=== PATIENT | female | born 1950 | race African-American/Black ===

== ENCOUNTER 2017-09-01 16:08 | Emergency (ER) | payer MEDICARE ==
[~2017-09-01] VITALS: Ht 160 cm; Wt 95.3 kg
[~2017-09-01 16:08] MED LIST: AMLO10TA2 PO; ASPI81TA50 PO; DOCU-150 PO; DONE5TAB7 PO; ENOX80DI3 SQ; HYDR-2762 PO; HYDR-971 PO; LEVO150T5 PO; LOSA100T6 PO; METH4TAB2 PO; METO-239 PO; OMEP20CA9 PO; SIMV20TA3 PO; SULF5DRO4 OP; WARF2.5T71 PO; WARF5TAB7 PO
[2017-09-01 16:20] VITALS: BP 192/88
[2017-09-01] MEDS ORDERED: PRED20TA PO (17:31)
[2017-09-01] MEDS ORDERED: CYCL10TA2 PO (17:31)
--- NOTE | 2017-09-01 17:31 | PHYS DOC ---
Past Medical History Past Medical History: Dementia, DVT, GERD, High Cholesterol, Hypertension, Hypothyroid Past Surgical History: Tubal ligation Alcohol Use: Rarely Drug Use: None Adult General Chief Complaint Chief Complaint: Neck Pain HPI HPI Patient is a 67 year old E male presents to the emergency department with a four-day history of left lateral neck pain. Patient reports she slept on her pillow funny. She states that she is used muscle rubs and massage without relief of discomfort. She states that prior to arrival she took 5 mg of hydrocodone. Patient reports no fever, no nausea, no vomiting, no visual disturbance. She reports no headache. Review of Systems Review of Systems Constitutional: Denies fever or chills [] Eyes: Denies change in visual acuity, redness, or eye pain [] HENT: Denies nasal congestion or sore throat, complains of left lateral neck pain [] Respiratory: Denies cough or shortness of breath [] Cardiovascular: No additional information not addressed in HPI [] GI: Denies abdominal pain, nausea, vomiting, bloody stools or diarrhea [] : Denies dysuria or hematuria [] Musculoskeletal: Denies back pain or joint pain [] Integument: Denies rash or skin lesions [] Neurologic: Denies headache, focal weakness or sensory changes [] Endocrine: Denies polyuria or polydipsia [] All other systems were reviewed and found to be within normal limits, except as documented in this note. Allergies Allergies Allergies Coded Allergies Type Severity Reaction Last Updated Verified tolbutamide Allergy Intermediate 08/01/16 Yes Physical Exam Physical Exam Constitutional: Well developed, well nourished, no acute distress, non-toxic appearance. [] HENT: Normocephalic, atraumatic, bilateral external ears normal, oropharynx moist, no oral exudates, nose normal. [] Eyes: PERRLA, EOMI, conjunctiva normal, no discharge. [] Neck: Normal range of motion, mild tenderness in the left paraspinous muscles and the left trapezius muscle., supple, no meningeal signs and no lymphadenopathy, no stridor. [] Cardiovascular:Heart rate regular rhythm, no murmur [] Lungs & Thorax: Bilateral breath sounds clear to auscultation [] Skin: Warm, dry, no erythema, no rash. [] Back: No tenderness, no CVA tenderness. [] Extremities: No tenderness, no cyanosis, no clubbing, ROM intact, no edema. [] Neurologic: Alert and oriented X 3, normal motor function, normal sensory function, no focal deficits noted. [] Psychologic: Affect normal, judgement normal, mood normal. [] EKG EKG [] Radiology/Procedures Radiology/Procedures [] Course & Med Decision Making Course & Med Decision Making Pertinent Labs and Imaging studies reviewed. (See chart for details) [] Dragon Disclaimer Dragon Disclaimer This electronic medical record was generated, in whole or in part, using a voice recognition dictation system. Departure Departure Impression: Primary Impression: Cervical muscle strain Disposition: HOME, SELF-CARE Condition: STABLE Referrals: ROBERT QUINTANILLA MD (PCP) Patient Instructions: Cervical Sprain Additional Instructions: Moist heat to affected area. Continue hydrocodone as previously directed and is indicated for pain. Scripts Prednisone (PREDNISONE) 20 Mg Tablet 1 TAB PO DAILY, #5 TAB Prov: ALIA GAYLE APRN 09/01/17 Cyclobenzaprine Hcl (CYCLOBENZAPRINE HCL) 10 Mg Tablet 10 MG PO TID, #30 TAB Prov: ALIA GAYLE APRN 09/01/17 Problem Qualifiers Primary Impression: Cervical muscle strain Encounter type: initial encounter Qualified Codes: S16.1XXA - Strain of muscle, fascia and tendon at neck level, initial encounter ALIA GAYLE APRN Sep 01, 2017 17:31
== END 2017-09-01 17:53 | disposition home or self-care (01) ==
LOC: ER 16:08
DX: S16.1XXA Strain of muscle, fascia and tendon at neck level, initial encounter (principal); F03.90 Unspecified dementia, unspecified severity, without behavioral disturbance, psychotic disturbance, mood disturbance, and anxiety; K21.9 Gastro-esophageal reflux disease without esophagitis; E78.00 Pure hypercholesterolemia, unspecified; I10 Essential (primary) hypertension; E03.9 Hypothyroidism, unspecified; Z86.718 Personal history of other venous thrombosis and embolism; Z88.8 Allergy status to other drugs, medicaments and biological substances; X58.XXXA Exposure to other specified factors, initial encounter; Y93.89 Activity, other specified; Y92.89 Other specified places as the place of occurrence of the external cause; Y99.8 Other external cause status
CPT/HCPCS: 99283

== ENCOUNTER 2018-01-15 19:02 | Emergency (ER) | payer MEDICARE ==
[2018-01-15] MEDS: predniSONE 10 MG TABLET PO (20:30)
[2018-01-15] MEDS: HYDROcodone/APAP 5/325MG 1 TAB TABLET PO (20:31)
== END 2018-01-15 21:04 | disposition home or self-care (01) ==
LOC: ER 19:02
DX: M54.16 Radiculopathy, lumbar region (principal); G58.9 Mononeuropathy, unspecified; E03.9 Hypothyroidism, unspecified; F03.90 Unspecified dementia, unspecified severity, without behavioral disturbance, psychotic disturbance, mood disturbance, and anxiety; E78.00 Pure hypercholesterolemia, unspecified; I10 Essential (primary) hypertension; K21.9 Gastro-esophageal reflux disease without esophagitis; G89.29 Other chronic pain; I25.2 Old myocardial infarction; Z98.51 Tubal ligation status; Z86.718 Personal history of other venous thrombosis and embolism; Z79.01 Long term (current) use of anticoagulants; Z88.8 Allergy status to other drugs, medicaments and biological substances
CPT/HCPCS: 99283; J7512

== ENCOUNTER → 2018-10-12 | Outpatient (CLI) | payer MEDICARE ==
[2018-01-15 19:29] VITALS: BP 206/91
[~2018-10-12] MED LIST changes: -AMLO10TA2 PO; +AMLO10TA6 PO; +CYCL10TA2 PO; -HYDR-2762 PO; +HYDR-2765 PO; +HYDR-3164 PO; -HYDR-971 PO; +LOSA100T14 PO; -LOSA100T6 PO; +PRED20TA PO; +WARF-31 PO; -WARF5TAB7 PO
--- NOTE | 2018-10-12 13:22 | RAD ---
DATE: 10/12/2018 EXAM: MAMMO PELON SCREENING BILATERAL HISTORY: Routine screening COMPARISON: 07/23/2015 This study was interpreted with the benefit of Computerized Aided Detection (CAD). Breast Density: HETERO The breast parenchyma is heterogenously dense, which could reduce sensitivity of mammography. Breast parenchyma level C. FINDINGS: 2-D and 3-D tomosynthesis imaging was performed in CC and MLO projections. No new or enlarging breast densities are seen. Benign type calcifications appear stable. No suspicious microcalcifications have developed. IMPRESSION: Stable mammograms without evidence of malignancy. BI-RADS CATEGORY: 2 BENIGN FINDING(S) RECOMMENDED FOLLOW-UP: 12M 12 MONTH FOLLOW-UP PQRS compliance statement: Patient information was entered into a reminder system with a target due date for the next mammogram. Mammography is a sensitive method for finding small breast cancers, but it does not detect them all and is not a substitute for careful clinical examination. A negative mammogram does not negate a clinically suspicious finding and should not result in delay in biopsying a clinically suspicious abnormality. "Our facility is accredited by the [employer] Mammography Program."
== END | disposition home or self-care (01) ==
LOC: MAMMO 12:12
PROVIDERS: ATTEND Nurse Practitioner
DX: Z12.31 Encounter for screening mammogram for malignant neoplasm of breast (principal)
CPT/HCPCS: 77063; 77067

== ENCOUNTER 2019-03-29 14:30 | Inpatient (IN) | payer MEDICARE ==
[~2019-03-29] VITALS: Ht 152.4 cm; Wt 93.0 kg
[2019-03-29] VITALS (11 sets, daily range): BP systolic 107–150; BP diastolic 56–72
[~2019-03-29 14:30] MED LIST changes: -AMLO10TA6 PO; +AMLO10TA8 PO; +OMEP20CA10 PO; -OMEP20CA9 PO
[2019-03-29] MEDS ORDERED: PROPOFOL 50 ML IV ONE (14:45)
[2019-03-29] MEDS ORDERED: HEPARIN for IV BOLUS 10,000 UNIT/10 ML VIAL. ONE ×2 (14:45→16:05)
[2019-03-29] MEDS ORDERED: ACETAMINOPHEN 650 MG SUPP.RECT. PR ONE (15:00)
[2019-03-29] MEDS: IV NORMAL SALINE 1000ML BAG 1,000 ML IV SCH ×2 (15:00→15:33)
[2019-03-29] MEDS: PROPOFOL 100 ML IV PRN ×3 (15:00→20:59)
[2019-03-29 15:05] LABS: BASO # 0.1 x10^3/uL (0.0-0.2); BASO % 1 % (0-3); EOS # 0.1 x10^3/uL (0.0-0.7); EOS % 1 % (0-3); HEMATOCRIT 42.2 % (36.0-47.0); HEMOGLOBIN 14.1 g/dL (12.0-15.5); LYMPH # 4.3 x10^3/uL (1.0-4.8); LYMPH % 61 % (24-48); MEAN CORPUSCULAR HEMOGLOBIN 30 pg (25-35); MEAN CORPUSCULAR HGB CONC 33 g/dL (31-37); MEAN CORPUSCULAR VOLUME 88 fL (79-100); MONO # 0.7 x10^3/uL (0.0-1.1); MONO % 10 % (0-9); NEUT # 1.9 x10^3uL (1.8-7.7); NEUT % 27 % (31-73); PLATELET COUNT 248 x10^3/uL (140-400); RED BLOOD COUNT 4.78 x10^6/uL (3.50-5.40); RED CELL DISTRIBUTION WIDTH 14.1 % (11.5-14.5); WHITE BLOOD COUNT 7.1 x10^3/uL (4.0-11.0)
[2019-03-29 15:07] LABS: BILIRUBIN,URINE NEGATIVE (NEG); CLARITY,URINE CLOUDY; COLOR,URINE YELLOW; NITRITE,URINE NEGATIVE (NEG); PROTEIN,URINE NEGATIVE (NEG-TRACE)
--- NOTE | 2019-03-29 15:13 | RAD ---
EXAM: CHEST 1 VIEW History: Intubation COMPARISON: 11/25/2011 TECHNIQUE: Single portable radiograph of the chest FINDINGS: Low lung volumes and technique accentuates heart size and pulmonary vascularity. The ET tube is identified in the trachea just above the level of the elayne. The feeding tube is seen below the diaphragm likely within the stomach. Mild bibasilar lung airspace opacities. IMPRESSION: IMPRESSION: 1. ET tube, feeding tube in place. 2. Mild bibasilar lung airspace opacities likely atelectasis or infiltrates. Electronically signed by: Compa Santiago MD (03/29/2019 3:10 PM) [facility]
[2019-03-29 15:15] LABS: CREATININE ISTAT 1.5 mg/dL (0.5-1.4); HEMOGLOBIN ISTAT 14.3 g/dL (12-15); ION CA ISTAT 1.47 mmol/L (1.13-1.32); POTASSIUM ISTAT 3.9 mmol/L (3.5-5.0)
[2019-03-29 15:16] LABS: BACTERIA,URINE FEW /HPF (0-FEW); RBC,URINE 0 /HPF (0-2)
[2019-03-29 15:16] LABS: PROTHROMBIN TIME PATIENT 20.1 SEC (11.7-14.0)
[2019-03-29 15:17] LABS: WBC,URINE OCC /HPF (0-4)
--- NOTE | 2019-03-29 15:18 | PHYS DOC ---
Past Medical History Past Medical History: CVA, Dementia, DVT, GERD, High Cholesterol, Hypertension, Hypothyroid, DC Additional Past Medical Histor: CHRONIC BACK PAIN Past Surgical History: Tubal ligation Alcohol Use: Rarely Drug Use: None Adult General Chief Complaint Chief Complaint: ALTERED MENTAL STATUS HPI HPI 68-year-old female with multiple medical problems presents via EMS as a code STEMI. Patient was found down in a steam room at the [facility]. Since her how long she was in the steam room. When the workers found her they said she was unresponsive and called EMS. EMS reports that she was warm and diaphoretic and they noted that her EKG was consistent with an ST elevation DC. According to family, she was in her usual state of health this morning. She had not complained of any fever chills or sweats. No headache or neck pain. As far as anyone knows, she had been eating and drinking normally leading up to this event.[] Review of Systems Review of Systems Review of systems is unobtainable secondary to altered mental status. Current Medications Current Medications Current Medications Medications (Trade) Dose Ordered Sig/Woodrow Start Time Stop Time Status Last Admin Dose Admin Acetaminophen (Tylenol Supp) 650 mg 1X ONCE 03/29/19 15:00 03/29/19 15:01 DC Etomidate (Amidate) 20 mg STK-MED ONCE 03/29/19 16:08 03/29/19 16:09 DC Heparin Sodium (Porcine) (Heparin Sodium) 2,500 unit 1X ONCE 03/29/19 16:15 03/29/19 16:16 UNV Heparin Sodium/ Sodium Chloride (HEPARIN for ARTERIAL LINE FLUSH) 1,000 unit 1X ONCE 03/29/19 16:15 03/29/19 16:16 UNV Iodixanol (Visipaque 320) 100 ml 1X ONCE 03/29/19 16:15 03/29/19 16:16 UNV Lidocaine HCl (Lidocaine 1% 20ml Vial) 20 ml 1X ONCE 03/29/19 16:15 03/29/19 16:16 UNV Nitroglycerin (Nitroglycerin) 200 mcg 1X ONCE 03/29/19 16:15 03/29/19 16:16 UNV Piperacillin Sod/ Tazobactam Sod 4.5 gm/Sodium Chloride 100 ml @ 200 mls/hr 1X ONCE 03/29/19 15:30 03/29/19 15:59 DC 6/26/19 15:05 200 MLS/HR Propofol 100 ml @ 0 mls/hr CONT PRN 03/29/19 15:00 03/29/19 15:00 2.9 MLS/HR Sodium Chloride 1,000 ml @ 1,860 mls/hr Q33M 03/29/19 15:00 03/29/19 16:00 DC 03/29/19 15:00 1,860 MLS/HR Succinylcholine Chloride (Anectine) 200 mg STK-MED ONCE 03/29/19 16:08 03/29/19 16:09 DC Verapamil HCl (Verapamil) 2.5 mg 1X ONCE 03/29/19 16:15 03/29/19 16:16 UNV Allergies Allergies Allergies Coded Allergies Type Severity Reaction Last Updated Verified tolbutamide Allergy Intermediate 08/01/16 Yes Physical Exam Physical Exam Constitutional: Diaphoretic, extreme respiratory distress acutely ill. [] HENT: Mucous membranes are moist secretions noted, no evidence of head trauma. [] Eyes: Conjunctiva injected pupils 1-2 mm. [] Neck: No obvious meningeal signs. [] Cardiovascular: Tachycardic no obvious murmur[] Lungs & Thorax: Coarse rales throughout both lungs no wheezes[] Abdomen: Bowel sounds normal, soft, no tenderness, no masses, no pulsatile masses. [] Skin: Warm, diaphoretic. [] Back: No obvious deformity noted. [] Extremities: No tenderness, no cyanosis, no clubbing, ROM intact, no edema. [] Neurologic: Patient is obtunded and in severe respiratory distress appears that she is moving all 4 extremities. [] Psychologic: Unable to assess[] Current Patient Data Vital Signs Vital Signs Date Time Temp Pulse Resp B/P (MAP) Pulse Ox O2 Delivery O2 Flow Rate FiO2 03/29/19 15:40 106 20 98 03/29/19 15:00 101.3 101.3 03/29/19 14:50 Ventilator 03/29/19 14:30 112/82 (92) 15.0 Lab Values Laboratory Tests Test 03/29/19 14:36 03/29/19 14:45 03/29/19 15:09 03/29/19 15:10 White Blood Count 7.1 x10^3/uL (4.0-11.0) Red Blood Count 4.78 x10^6/uL (3.50-5.40) Hemoglobin 14.1 g/dL (12.0-15.5) Hematocrit 42.2 % (36.0-47.0) Mean Corpuscular Volume 88 fL (79-100) Mean Corpuscular Hemoglobin 30 pg (25-35) Mean Corpuscular Hemoglobin Concent 33 g/dL (31-37) Red Cell Distribution Width 14.1 % (11.5-14.5) Platelet Count 248 x10^3/uL (140-400) Neutrophils (%) (Auto) 27 % (31-73) L Lymphocytes (%) (Auto) 61 % (24-48) H Monocytes (%) (Auto) 10 % (0-9) H Eosinophils (%) (Auto) 1 % (0-3) Basophils (%) (Auto) 1 % (0-3) Neutrophils # (Auto) 1.9 x10^3uL (1.8-7.7) Lymphocytes # (Auto) 4.3 x10^3/uL (1.0-4.8) Monocytes # (Auto) 0.7 x10^3/uL (0.0-1.1) Eosinophils # (Auto) 0.1 x10^3/uL (0.0-0.7) Basophils # (Auto) 0.1 x10^3/uL (0.0-0.2) Prothrombin Time 20.1 SEC (11.7-14.0) H Prothrombin Time INR 1.7 (0.8-1.1) H PTT 29 SEC (24-38) Sodium Level 140 mmol/L (136-145) Potassium Level 3.9 mmol/L (3.5-5.1) Chloride Level 104 mmol/L (98-107) Carbon Dioxide Level 18 mmol/L (21-32) L Anion Gap 18 (6-14) H 17 mmol/L (6-14) H Blood Urea Nitrogen 18 mg/dL (7-20) Creatinine 1.8 mg/dL (0.6-1.0) H Estimated GFR (Cockcroft-Gault) 33.9 BUN/Creatinine Ratio 10 (6-20) Glucose Level 210 mg/dL (70-99) H 201 mg/dL (70-99) H Lactic Acid Level 4.6 mmol/L (0.4-2.0) *H Calcium Level 11.1 mg/dL (8.5-10.1) H Total Bilirubin 0.3 mg/dL (0.2-1.0) Aspartate Amino Transferase (AST) 31 U/L (15-37) Alanine Aminotransferase (ALT) 40 U/L (14-59) Alkaline Phosphatase 82 U/L (46-116) Troponin I Quantitative 0.046 ng/mL (0.000-0.055) Total Protein 8.8 g/dL (6.4-8.2) H Albumin 4.3 g/dL (3.4-5.0) Albumin/Globulin Ratio 1.0 (1.0-1.7) Lipase 260 U/L (73-393) Urine Collection Type Unknown Urine Color Yellow Urine Clarity Cloudy Urine pH 6.0 Urine Specific [place] 1.025 Urine Protein Negative mg/dL (NEG-TRACE) Urine Glucose (UA) Negative mg/dL (NEG) Urine Ketones (Stick) Negative mg/dL (NEG) Urine Blood Negative (NEG) Urine Nitrite Negative (NEG) Urine Bilirubin Negative (NEG) Urine Urobilinogen Dipstick 1.0 mg/dL (0.2 mg/dL) Urine Leukocyte Esterase Negative (NEG) Urine RBC 0 /HPF (0-2) Urine WBC Occ /HPF (0-4) Urine Bacteria Few /HPF (0-FEW) POC Hemoglobin 14.3 g/dL (12-15) POC Hematocrit 42 % (36-40) H POC Sodium 142 mmol/L (135-145) POC Potassium 3.9 mmol/L (3.5-5.0) POC Chloride 111 mmol/L (98-110) H POC Total CO2 18 mmol/L (23-32) L POC Blood Urea Nitrogen 18 mg/dL (8-26) POC Creatinine 1.5 mg/dL (0.5-1.4) H POC Ionized Calcium (Rodney) 1.47 mmol/L (1.13-1.32) H POC Troponin I 0.04 ng/ml (<0.08) Test 03/29/19 15:30 O2 Saturation 96 % (92-99) Arterial Blood pH 7.34 (7.35-7.45) L Arterial Blood pH (Temp corrected) 7.32 Arterial Blood pCO2 at Patient Temp 33 mmHg (35-46) L Arterial Blood pCO2 (Temp correct) 35 mmHg Arterial Blood pO2 at Patient Temp 92 mmHg (65-108) Arterial Blood pO2 (Temp corrected) 100 mmHg Arterial Blood HCO3 17 mmol/L (21-28) L Arterial Blood Base Excess -8 mmol/L (-3-3) L Oxyhemoglobin 94.9 % Methemoglobin 0.3 % (0.0-1.9) Carbon Monoxide, Quantitative 0.3 % (0.0-1.9) FiO2 40 Laboratory Tests 03/29/19 14:36 Laboratory Tests 03/29/19 14:36 03/29/19 15:09 EKG EKG [] Interpretation Time: EKG: Sinus tachycardia rate in the 130s left bundle branch block Radiology/Procedures Radiology/Procedures [] Impressions: PROCEDURE: PORTABLE CHEST 1V EXAM: CHEST 1 VIEW History: Intubation COMPARISON: 11/25/2011 TECHNIQUE: Single portable radiograph of the chest FINDINGS: Low lung volumes and technique accentuates heart size and pulmonary vascularity. The ET tube is identified in the trachea just above the level of the elayne. The feeding tube is seen below the diaphragm likely within the stomach. Mild bibasilar lung airspace opacities. IMPRESSION: IMPRESSION: 1. ET tube, feeding tube in place. 2. Mild bibasilar lung airspace opacities likely atelectasis or infiltrates. Course & Med Decision Making Course & Med Decision Making Pertinent Labs and Imaging studies reviewed. (See chart for details) ED course: Evaluation reveals a 68-year-old obtunded female in severe respiratory distress. Given the critical nature of her illness it was decided immediately that the patient needed to be intubated. The patient was given 20 of etomidate and 100 mg of succinyl choline then using [id number] she was pre oxygenated and intubated using a 4 Santi blade and 80 ET tube at 22 cm to the lips there was good CO2 color change with bilateral breath sounds. The patient was then sedated with differential a van per our sedation protocol. Patient was started on assist control ventilation with tidal volume of 500 rate of 18. 5 and FiO2 of 100%. Dr. Howell, our maintenance millwright was here immediately on arrival. He viewed the EKG and agreed that it appeared to be a left bundle branch block. Of note, the patient's temperature on arrival was more than 103. I suspect that this is related to her being in a steam shower for an unknown period of time however we could be dealing with sepsis. The patient was given 30 mL/kg of IV fluid per the sepsis protocol. This was based on her ideal body weight. The patient's lactic acid was greater than 4. The patient was given 4.5 g of Zosyn as a broad-spectrum antibiotic. CRITICAL CARE: Time spent was 35 minutes. This includes medical management, evaluation, reevaluation, discussion with consultants and family. Critical Care does NOT include time spent on separately billed procedures. ] Dragon Disclaimer Dragon Disclaimer This electronic medical record was generated, in whole or in part, using a voice recognition dictation system. Departure Departure Impression: Primary Impression: Respiratory failure Additional Impressions: Hyperthermia Altered mental status Disposition: 09 ADMITTED INPATIENT Admitting Physician: PATTI Condition: CRITICAL Referrals: SHWETA BOYLE PROJECT LANDSCAPE ARCHITECT (PCP) Problem Qualifiers Primary Impression: Respiratory failure Chronicity: acute Respiratory failure complication: hypoxia Qualified Codes: J96.01 - Acute respiratory failure with hypoxia Additional Impressions: Altered mental status Altered mental status type: unspecified Qualified Codes: R41.82 - Altered mental status, unspecified DORINDA KIMBROUGH DO Mar 29, 2019 15:18
--- NOTE | 2019-03-29 15:22 | EKG ---
[facility] [address] [place] [address] Test Date: 2019-03-29 Test Time: 14:54:47 Pat Name: JOHNNIE FLORES Department: Room: Gender: F Logistics Lead: : 1950 Requested By: DORINDA KIMBROUGH Order Number: [id number] Reading MD: Measurements Intervals [place] Rate: 136 P: -102 NV: 104 QRS: -7 QRSD: 146 T: 83 QT: 328 QTc: 497 Interpretive Statements SUPRAVENTRICULAR TACHYCARDIA LEFTWARD AXIS NON SPECIFIC INTRAVENTRICULAR BLOCK ABNORMAL ECG RI6.01 Unconfirmed report No previous ECG available for comparison
[2019-03-29 15:26] LABS: CALCIUM 11.1 mg/dL (8.5-10.1); CREATININE 1.8 mg/dL (0.6-1.0); GFR 33.9; POTASSIUM 3.9 mmol/L (3.5-5.1)
[2019-03-29] MEDS ORDERED: PIPERACILLIN/TAZOBACTAM 4.5 GM in IV NORMAL SALINE 100ML 100 ML IV ONE (15:30)
[2019-03-29 15:31] LABS: BASE EXCESS COOX -8 mmol/L (-3-3); HCO3 COOX 17 mmol/L (21-28); METHEMOGLOBIN 0.3 % (0.0-1.9); OXYHEMOGLOBIN 94.9 %; PCO2 COOX 33 mmHg (35-46); PO2 COOX 92 mmHg (65-108); SAT O2 COOX 96 % (92-99)
[2019-03-29 15:32] LABS: CORRECTED PCO2 COOX 35 mmHg; CORRECTED PH COOX 7.32; CORRECTED PO2 COOX 100 mmHg
[2019-03-29 15:32] LABS: ALBUMIN 4.3 g/dL (3.4-5.0); TOTAL BILIRUBIN 0.3 mg/dL (0.2-1.0); TOTAL PROTEIN 8.8 g/dL (6.4-8.2)
--- NOTE | 2019-03-29 16:04 | EKG ---
[facility] [address] [place] [address] Test Date: 2019-03-29 Test Time: 14:33:06 Pat Name: JOHNNIE FLORES Department: Room: Gender: F Port Captain: : 1950 Requested By: DORINDA KIMBROUGH Order Number: [id number] Reading MD: Measurements Intervals [place] Rate: 162 P: -114 NV: 76 QRS: 23 QRSD: 142 T: 68 QT: 278 QTc: 463 Interpretive Statements SUPRAVENTRICULAR TACHYCARDIA NON SPECIFIC INTRAVENTRICULAR BLOCK QRS(T) CONTOUR ABNORMALITY CONSIDER ANTEROSEPTAL MYOCARDIAL DAMAGE ABNORMAL ECG RI6.01 No previous ECG available for comparison
[2019-03-29] MEDS ORDERED: NITROGLYCERIN 200 MCG/2 ML SYRINGE FOR CATH/VASC LAB. ONE (16:05)
[2019-03-29] MEDS ORDERED: VERAPAMIL 5 MG/2 ML VIAL. ONE (16:05)
[2019-03-29] MEDS ORDERED: SUCCINYLCHOLINE 200 MG/10 ML VIAL. ONE (16:08)
[2019-03-29] MEDS ORDERED: ETOMIDATE 20 MG/10 ML VIAL. IV ONE (16:08)
[2019-03-29] MEDS ORDERED: HEPARIN for IV BOLUS 10,000 UNIT/10 ML VIAL. IART ONE (16:15)
[2019-03-29] MEDS ORDERED: NITROGLYCERIN 200 MCG/2 ML SYRINGE FOR CATH/VASC LAB. IART ONE (16:15)
[2019-03-29] MEDS ORDERED: VERAPAMIL 5 MG/2 ML VIAL. IART ONE (16:15)
[2019-03-29] MEDS ORDERED: LIDOCAINE 1% Multi-Dose 20 ML VIAL. INJ ONE (16:15)
[2019-03-29] MEDS ORDERED: IODIXANOL 320 MG/ML 100 ML VIAL. IART ONE (16:15)
--- NOTE | 2019-03-29 16:21 | PDOC2 ---
CARDIAC CONSULT DATE OF CONSULT Date of Consult DATE: 03/29/19 TIME: 16:08 REASON FOR CONSULT Reason for Consult: Abnormal EKG, respiratory failure REFERRING PHYSICIAN Referring Physician: Milli SOURCE Source: Chart review HISTORY OF PRESENT ILLNESS HISTORY OF PRESENT ILLNESS This is a 68 yo female admitted for unresponsiveness. She was at [facility] and was at the steam room and was found unresponsive. Agonal respiration was described at RR10 but no lost of pulse . GCS was 4 and eventually was able to be stimulated with sternal rub per staff. Pt was given narcan and was placed on NRB. She was then transported by EMS and intubated in ED. It is unclear how long she was down on the gown and no reported arrhythmias but noted with LBBB. PAST MEDICAL HISTORY Cardiovascular: HTN, Hyperlipidemia CENTRAL NERVOUS SYSTEM: Dementia GI: GERD Musculoskeletal: Osteoarthritis ENT: Other (glaucoma) Endocrine: Hypothyroidism PAST SURGICAL HISTORY Past Surgical History: Tubal Ligation FAMILY HISTORY Family History: Heart Disease SOCIAL HISTORY Smoke: Quit ALCOHOL: none Drugs: None CURRENT MEDICATIONS CURRENT MEDICATIONS Current Medications Medications (Trade) Dose Ordered Sig/Woodrow Route PRN Reason Start Time Stop Time Status Last Admin Dose Admin Sodium Chloride 1,000 ml @ 1,860 mls/hr Q33M IV 03/29/19 15:00 03/29/19 16:00 DC 03/29/19 15:00 Piperacillin Sod/ Tazobactam Sod 4.5 gm/Sodium Chloride 100 ml @ 200 mls/hr 1X ONCE IV 03/29/19 15:30 03/29/19 15:59 DC 03/29/19 15:05 Propofol 100 ml @ 0 mls/hr CONT PRN IV SEE PROTOCOL 03/29/19 15:00 03/29/19 15:00 ALLERGIES ALLERGIES: Coded Allergies: tolbutamide (Verified Allergy, Intermediate, 08/01/16) ROS Review of System unreliable PHYSICAL EXAM General: Other HEENT: Atraumatic, Mucous membr. moist/pink Lungs: Other (intubated,vent) Heart: Regular rate (SR LBBB) Abdomen: Soft Skin: No breakdown Psych/Mental Status: Other (sedated) MUSCULOSKELETAL: Osteoarthritic changes both hands VITALS VITALS Vital Signs Date Time Temp Pulse Resp B/P (MAP) Pulse Ox O2 Delivery O2 Flow Rate FiO2 03/29/19 15:40 106 20 98 6/26/19 15:00 101.3 101.3 03/29/19 14:50 Ventilator 03/29/19 14:30 112/82 (92) 15.0 LABS Lab: Laboratory Tests Test 03/29/19 14:36 03/29/19 14:45 03/29/19 15:09 03/29/19 15:10 White Blood Count 7.1 x10^3/uL (4.0-11.0) Red Blood Count 4.78 x10^6/uL (3.50-5.40) Hemoglobin 14.1 g/dL (12.0-15.5) Hematocrit 42.2 % (36.0-47.0) Mean Corpuscular Volume 88 fL (79-100) Mean Corpuscular Hemoglobin 30 pg (25-35) Mean Corpuscular Hemoglobin Concent 33 g/dL (31-37) Red Cell Distribution Width 14.1 % (11.5-14.5) Platelet Count 248 x10^3/uL (140-400) Neutrophils (%) (Auto) 27 % (31-73) Lymphocytes (%) (Auto) 61 % (24-48) Monocytes (%) (Auto) 10 % (0-9) Eosinophils (%) (Auto) 1 % (0-3) Basophils (%) (Auto) 1 % (0-3) Neutrophils # (Auto) 1.9 x10^3uL (1.8-7.7) Lymphocytes # (Auto) 4.3 x10^3/uL (1.0-4.8) Monocytes # (Auto) 0.7 x10^3/uL (0.0-1.1) Eosinophils # (Auto) 0.1 x10^3/uL (0.0-0.7) Basophils # (Auto) 0.1 x10^3/uL (0.0-0.2) Prothrombin Time 20.1 SEC (11.7-14.0) Prothromb Time International Ratio 1.7 (0.8-1.1) Activated Partial Thromboplast Time 29 SEC (24-38) Sodium Level 140 mmol/L (136-145) Potassium Level 3.9 mmol/L (3.5-5.1) Chloride Level 104 mmol/L (98-107) Carbon Dioxide Level 18 mmol/L (21-32) Anion Gap 18 (6-14) 17 mmol/L (6-14) Blood Urea Nitrogen 18 mg/dL (7-20) Creatinine 1.8 mg/dL (0.6-1.0) Estimated GFR (Cockcroft-Gault) 33.9 BUN/Creatinine Ratio 10 (6-20) Glucose Level 210 mg/dL (70-99) 201 mg/dL (70-99) Lactic Acid Level 4.6 mmol/L (0.4-2.0) Calcium Level 11.1 mg/dL (8.5-10.1) Total Bilirubin 0.3 mg/dL (0.2-1.0) Aspartate Amino Transf (AST/SGOT) 31 U/L (15-37) Alanine Aminotransferase (ALT/SGPT) 40 U/L (14-59) Alkaline Phosphatase 82 U/L (46-116) Troponin I Quantitative 0.046 ng/mL (0.000-0.055) Total Protein 8.8 g/dL (6.4-8.2) Albumin 4.3 g/dL (3.4-5.0) Albumin/Globulin Ratio 1.0 (1.0-1.7) Lipase 260 U/L (73-393) Urine Collection Type Unknown Urine Color Yellow Urine Clarity Cloudy Urine pH 6.0 Urine Specific [place] 1.025 Urine Protein Negative mg/dL (NEG-TRACE) Urine Glucose (UA) Negative mg/dL (NEG) Urine Ketones (Stick) Negative mg/dL (NEG) Urine Blood Negative (NEG) Urine Nitrite Negative (NEG) Urine Bilirubin Negative (NEG) Urine Urobilinogen Dipstick 1.0 mg/dL (0.2 mg/dL) Urine Leukocyte Esterase Negative (NEG) Urine RBC 0 /HPF (0-2) Urine WBC Occ /HPF (0-4) Urine Bacteria Few /HPF (0-FEW) Bedside Hemoglobin 14.3 g/dL (12-15) Bedside Hematocrit 42 % (36-40) Bedside Sodium 142 mmol/L (135-145) Bedside Potassium 3.9 mmol/L (3.5-5.0) Bedside Chloride 111 mmol/L (98-110) Bedside Total CO2 18 mmol/L (23-32) Bedside Blood Urea Nitrogen 18 mg/dL (8-26) Bedside Creatinine 1.5 mg/dL (0.5-1.4) Bedside Ionized Calcium (Rodney) 1.47 mmol/L (1.13-1.32) Bedside Troponin I 0.04 ng/ml (<0.08) Test 03/29/19 15:30 O2 Saturation 96 % (92-99) Arterial Blood pH 7.34 (7.35-7.45) Arterial Blood pH (Temp corrected) 7.32 Arterial Blood pCO2 at Patient Temp 33 mmHg (35-46) Arterial Blood pCO2 (Temp correct) 35 mmHg Arterial Blood pO2 at Patient Temp 92 mmHg (65-108) Arterial Blood pO2 (Temp corrected) 100 mmHg Arterial Blood HCO3 17 mmol/L (21-28) Arterial Blood Base Excess -8 mmol/L (-3-3) Oxyhemoglobin 94.9 % Methemoglobin 0.3 % (0.0-1.9) Carbon Monoxide, Quantitative 0.3 % (0.0-1.9) FiO2 40 ASSESSMENT/PLAN ASSESSMENT/PLAN 1. Acute respiratory failure: intubated with vent. No arrhythmias noted. 2. Fever with possible sepsis: Tmax 103. 3. Metabolic encephalopathy: did not respond to narcan 4. Presumed syncope with possible fall and arrhythmias 5. Chronic LBBB: compared to 2016 EKG 6. ?Chronic anticoagulation: unclear but has had unspecified heart surgery in the past. On coumadin still? INR 1.7 7. NANETTE. 8. HTN: controlled 9. HLP 10. Hypothyroidism Recommendations TTE, CK, TSH With her unknown hx of heart surgery and potential cardiac dysrhythmias/ischemia that could have contributed to her critical state, [facility] in motion. Primary land surveying party chief discussed this with family. Will need CT of the head. Consult pulmonary, ID IVF VALERIE MCFARLANE APRN Mar 29, 2019 16:21
[2019-03-29] MEDS ORDERED: CONTRAST GIVEN. MC PRN (16:30)
[2019-03-29] MEDS ORDERED: IV NORMAL SALINE 1000ML BAG 1,000 ML IV ONE (16:45)
--- NOTE | 2019-03-29 17:28 | CARD ---
MR#: [id number] Date of Study: 03/29/2019 Ordering Physician: RIMMA GREGORIO, Referring Physician: Pato BELLAMY: BRYANNA ZEPEDA RTR APPROVED REPORT Procedures Left heart catheterization Selective coronary angiogram The patient is a 68-year-old female who was [facility] [place] a health club for an undetermined period of time. She was brought emergently to the catheterization to the emergency room by paramedics. She was intubated in the emergency room. She never regained consciousness prior to intubation. EKG showed a left bundle branch block. An incomplete history was positive for probable coronary artery disease and the patient was on Coumadin for undetermined reasons. In this setting a cardiac catheterization was discussed with the patient's family. Risks and benefits were discussed and they agreed to proceed wit h an angiogram and possible revascularization. After informed consent was obtained from the patient's family, the patient was brought to the cathete rization lab. The area of the right radial artery was prepared in the usual manner with Betadine, mikal rile draping and local anesthetic after an acceptable Yrn's test. A quick catheter was used to enga ge the right radial artery, a wire placed and a 6 [place] sheath placed over the wire. The standard mi xture of heparin and antispasm medication was administered through the sheath. Using a J-wire, a 6 Fr [employer] JL4 diagnostic catheter was advanced to the ascending aorta. It was not able to engage the right coronary artery but was able to cross the aortic valve. Pressures were obtained. Pullback pressures were measured. Using a wire exchange a JL 3.5 diagnostic catheter was advanced the ascending aorta. I t was used to engage the left system and sequential injections in various views were obtained. Using an exchange technique a 6 [place] Demetrio diagnostic right catheter was advanced to the ascending aor ta. It was used to engage the right coronary artery and sequential injections in various views were obtained. The catheter was removed from the patient. The sheath was removed from the patient and seal ed with a TR band as per routine protocol. The patient was then moved to the intensive care unit. Findings. Hemodynamics. LV 106/6, 12. Aortic root 102/68. Coronaries Left main. The left main was a long vessel. It had a distal 20-25% area of tapering. Left anterior descending. The LAD was a large vessel. It had diffuse proximal disease of 40%. In the small distal vessel there was an 80% lesion. Left circumflex. The left circumflex was small nondominant vessel. It had a proximal 30% lesion. It h ad diffuse small vessel distal disease. Right coronary artery. The right coronary was a moderate size dominant vessel. Has diffuse proximal d isease in the 40-45% range. It also had small vessel distal disease. <Conclusion> Three-vessel moderate coronary artery disease in the larger segments of the patient's vessels. Diffuse small vessel distal disease. LVEDP of 12 mmHg Signed by : Arsen Black MD Electronically Approved : 03/29/2019 17:27:39
[2019-03-29] MEDS ORDERED: 0.9 % SODIUM CHLORIDE 10 ML DISP.SYRIN. IV PRN (17:45)
[2019-03-29] MEDS ORDERED: NITROGLYCERIN SUBLINGUAL 0.4 MG BOTTLE OF 25. SL PRN (17:45)
--- NOTE | 2019-03-29 19:16 | PDOC1 ---
History and Physical Date of Admission Date of Admission DATE: 03/29/19 TIME: 18:50 Identification/Chief Complaint Chief Complaint AMS Problems: (1) Altered mental status (2) Respiratory failure (3) Hyperthermia Source Source: Chart review, Unable to obtain due to (sedated on vent) History of Present Illness History of Present Illness 68 yo female hx of HTN, hypothyroidism, HLD, GERD, ? Afib on coumadin who was at [facility] in the steam room and was found unresponsive by the workers. per report she was alone and was in the steam room for 1 hr. EMS was called and patient had a pulse but with agonal respirations. inital temp was 103 but she was in the steam room. GCS was reported at 4 initially. EMS read EKG as STEMI. patient transported to ED for evaluation. patient was placed on NRB in ED and intubated upon arrival. per family she was in her usual state this AM. no fever, seats, chest pain, sob. in the ED EKG read as LBBB. cardiolgy immedately took patient to the [employer] which showed Three-vessel moderate coronary artery disease in the larger segments of the patient's vessels and Diffuse small vessel distal disease. no stents placed. patient seen in ICU. currently intubated and sedated on vent. Past Medical History Cardiovascular: HTN, Hyperlipidemia CENTRAL NERVOUS SYSTEM: Dementia GI: GERD Musculoskeletal: Osteoarthritis ENT: Other (glaucoma) Endocrine: Hypothyroidism Past Surgical History Past Surgical History: Tubal Ligation Family History Family History: Heart Disease Social History Smoke: Quit ALCOHOL: none Drugs: None Current Problem List Problem List Problems Medical Problems: (1) Altered mental status Status: Acute (2) Hyperthermia Status: Acute (3) Respiratory failure Status: Acute Current Medications Current Medications Current Medications Heparin Sodium (Porcine) (Heparin Sodium) 10,000 unit STK-MED ONCE .ROUTE ; Start 03/29/19 at 14:45; Stop 03/29/19 at 14:46; Status DC Propofol 50 ml @ As Directed STK-MED ONCE IV ; Start 03/29/19 at 14:45; Stop 03/29/19 at 14:46; Status DC Sodium Chloride 1,000 ml @ 1,860 mls/hr Q33M IV Last administered on 03/29/19at 15:00; Start 03/29/19 at 15:00; Stop 03/29/19 at 16:00; Status DC Piperacillin Sod/ Tazobactam Sod 4.5 gm/Sodium Chloride 100 ml @ 200 mls/hr 1X ONCE IV Last administered on 03/29/19at 15:05; Start 03/29/19 at 15:30; Stop 03/29/19 at 15:59; Status DC Propofol 100 ml @ 0 mls/hr CONT PRN IV SEE PROTOCOL Last administered on 03/29/19at 16:25; Start 03/29/19 at 15:00 Acetaminophen (Tylenol Supp) 650 mg 1X ONCE MA ; Start 03/29/19 at 15:00; Stop 03/29/19 at 15:01; Status DC Heparin Sodium (Porcine) (Heparin Sodium) 10,000 unit STK-MED ONCE .ROUTE ; Start 03/29/19 at 16:05; Stop 03/29/19 at 16:06; Status DC Verapamil HCl (Verapamil) 5 mg STK-MED ONCE .ROUTE ; Start 03/29/19 at 16:05; Stop 03/29/19 at 16:06; Status DC Nitroglycerin (Nitroglycerin) 200 mcg STK-MED ONCE .ROUTE ; Start 03/29/19 at 16:05; Stop 03/29/19 at 16:06; Status DC Etomidate (Amidate) 20 mg STK-MED ONCE IV ; Start 03/29/19 at 16:08; Stop 03/29/19 at 16:09; Status DC Succinylcholine Chloride (Anectine) 200 mg STK-MED ONCE .ROUTE ; Start 03/29/19 at 16:08; Stop 03/29/19 at 16:09; Status DC Nitroglycerin (Nitroglycerin) 200 mcg 1X ONCE IART Last administered on 03/05 03/22at 16:15; Start 03/29/19 at 16:15; Stop 03/29/19 at 16:19; Status DC Verapamil HCl (Verapamil) 2.5 mg 1X ONCE IART Last administered on 03/29/19at 16:15; Start 03/29/19 at 16:15; Stop 03/29/19 at 16:19; Status DC Heparin Sodium (Porcine) (Heparin Sodium) 2,500 unit 1X ONCE IART Last administered on 03/29/19at 16:15; Start 03/29/19 at 16:15; Stop 03/29/19 at 16:19; Status DC Heparin Sodium/ Sodium Chloride (HEPARIN for ARTERIAL LINE FLUSH) 1,000 unit 1X ONCE IART Last administered on 03/29/19at 16:15; Start 03/29/19 at 16:15; Stop 03/29/19 at 16:19; Status DC Heparin Sodium/ Sodium Chloride (HEPARIN for ARTERIAL LINE FLUSH) 1,000 unit 1X ONCE IART Last administered on 03/29/19at 16:15; Start 03/29/19 at 16:15; Stop 03/29/19 at 16:19; Status DC Iodixanol (Visipaque 320) 100 ml 1X ONCE IART Last administered on 03/29/19at 16:15; Start 03/29/19 at 16:15; Stop 03/29/19 at 16:19; Status DC Lidocaine HCl (Lidocaine 1% 20ml Vial) 20 ml 1X ONCE INJ Last administered on 03/29/19at 16:15; Start 03/29/19 at 16:15; Stop 03/29/19 at 16:19; Status DC Info (CONTRAST GIVEN -- Rx MONITORING) 1 each PRN DAILY PRN MC SEE COMMENTS; Start 03/29/19 at 16:30; Stop 03/31/19 at 16:29 Sodium Chloride 1,000 ml @ 125 mls/hr 1X ONCE IV ; Start 03/29/19 at 16:45; Stop 03/30/19 at 00:44 Sodium Chloride (Normal Saline Flush) 3 ml QSHIFT PRN IV AFTER MEDS AND BLOOD DRAWS; Start 03/29/19 at 17:45 Nitroglycerin (Nitrostat) 0.4 mg PRN Q5MIN PRN SL CHEST PAIN; Start 03/29/19 at 17:45 Active Scripts Active Prednisone 20 Mg Tablet 1 Tab PO BID 10 Days Prednisone 20 Mg Tablet 1 Tab PO DAILY Cyclobenzaprine Hcl 10 Mg Tablet 10 Mg PO TID [place] 5-325 Tablet (Acetaminophen/Hydrocodone Bitart) 1 Each Tablet 1-2 Tab PO Q4-6HRS PRN Medrol (Methylprednisolone) 4 Mg Tab.ds.pk 1 Pkg PO UD Reported Sulf-Pred 10-0.23% Eye Drops (Sulfacetamide/Prednisolone Sp) 5 Ml Drops 5 Ml OP Stool Softener (Docusate Sodium) 100 Mg Capsule 100 Mg PO Simvastatin 20 Mg Tablet 20 Mg PO Omeprazole 20 Mg Capsule. 20 Mg PO Levothyroxine Sodium 150 Mcg Tablet 150 Mcg PO Donepezil Hcl 5 Mg Tablet 5 Mg PO Aspir-Low (Aspirin) 81 Mg Tablet. 81 Mg PO Amlodipine Besylate 10 Mg Tablet 10 Mg PO Metoprolol Succinate ( Xl ) (Metoprolol Succinate) 25 Mg Tab.er.24h 25 Mg PO Hydrocodone-Apap 7.5-325 (Hydrocodone Bit/Acetaminophen) 1 Each Tablet 1 Each PO Warfarin Sodium 5 Mg Tablet 5 Mg PO Warfarin Sodium 2.5 Mg Tablet 2.5 Mg PO Losartan Potassium 100 Mg Tablet 100 Mg PO Enoxaparin Sodium 80 Mg/0.8 Ml Disp.syrin 90 Mg SQ Allergies Allergies: Coded Allergies: tolbutamide (Verified Allergy, Intermediate, 08/01/16) ROS Review of System unable to obtain as patient sedated and vented Physical Exam Physical Exam GENERAL: sedated on vent HEENT: Head normocephalic, atraumatic. NECK: Supple LUNGS: Clear to auscultation. HEART: RRR, S1, S2 present, pulses intact ABDOMEN: Soft, positive bowel sounds. EXTREMITIES: No cyanosis or edema. NEUROLOGIC: sedated SKIN: No ulceration. Vitals Vitals Vital Signs Date Time Temp Pulse Resp B/P (MAP) Pulse Ox O2 Delivery O2 Flow Rate FiO2 03/29/19 18:04 Mechanical Ventilator 03/29/19 18:02 93 20 120/64 (82) 99 03/29/19 17:05 98.2 98.2 03/29/19 14:30 15.0 Labs Labs Laboratory Tests Test 03/29/19 14:36 03/29/19 14:45 03/29/19 15:09 03/29/19 15:10 White Blood Count 7.1 x10^3/uL (4.0-11.0) Red Blood Count 4.78 x10^6/uL (3.50-5.40) Hemoglobin 14.1 g/dL (12.0-15.5) Hematocrit 42.2 % (36.0-47.0) Mean Corpuscular Volume 88 fL (79-100) Mean Corpuscular Hemoglobin 30 pg (25-35) Mean Corpuscular Hemoglobin Concent 33 g/dL (31-37) Red Cell Distribution Width 14.1 % (11.5-14.5) Platelet Count 248 x10^3/uL (140-400) Neutrophils (%) (Auto) 27 % (31-73) Lymphocytes (%) (Auto) 61 % (24-48) Monocytes (%) (Auto) 10 % (0-9) Eosinophils (%) (Auto) 1 % (0-3) Basophils (%) (Auto) 1 % (0-3) Neutrophils # (Auto) 1.9 x10^3uL (1.8-7.7) Lymphocytes # (Auto) 4.3 x10^3/uL (1.0-4.8) Monocytes # (Auto) 0.7 x10^3/uL (0.0-1.1) Eosinophils # (Auto) 0.1 x10^3/uL (0.0-0.7) Basophils # (Auto) 0.1 x10^3/uL (0.0-0.2) Prothrombin Time 20.1 SEC (11.7-14.0) Prothromb Time International Ratio 1.7 (0.8-1.1) Activated Partial Thromboplast Time 29 SEC (24-38) Sodium Level 140 mmol/L (136-145) Potassium Level 3.9 mmol/L (3.5-5.1) Chloride Level 104 mmol/L (98-107) Carbon Dioxide Level 18 mmol/L (21-32) Anion Gap 18 (6-14) 17 mmol/L (6-14) Blood Urea Nitrogen 18 mg/dL (7-20) Creatinine 1.8 mg/dL (0.6-1.0) Estimated GFR (Cockcroft-Gault) 33.9 BUN/Creatinine Ratio 10 (6-20) Glucose Level 210 mg/dL (70-99) 201 mg/dL (70-99) Lactic Acid Level 4.6 mmol/L (0.4-2.0) Calcium Level 11.1 mg/dL (8.5-10.1) Magnesium Level 1.8 mg/dL (1.8-2.4) Total Bilirubin 0.3 mg/dL (0.2-1.0) Aspartate Amino Transf (AST/SGOT) 31 U/L (15-37) Alanine Aminotransferase (ALT/SGPT) 40 U/L (14-59) Alkaline Phosphatase 82 U/L (46-116) Creatine Kinase 518 U/L (26-192) Troponin I Quantitative 0.046 ng/mL (0.000-0.055) Total Protein 8.8 g/dL (6.4-8.2) Albumin 4.3 g/dL (3.4-5.0) Albumin/Globulin Ratio 1.0 (1.0-1.7) Lipase 260 U/L (73-393) Procalcitonin < 0.10 ng/mL (0.00-0.10) Thyroid Stimulating Hormone (TSH) 7.165 uIU/mL (0.358-3.74) Urine Collection Type Unknown Urine Color Yellow Urine Clarity Cloudy Urine pH 6.0 Urine Specific Sandy 1.025 Urine Protein Negative mg/dL (NEG-TRACE) Urine Glucose (UA) Negative mg/dL (NEG) Urine Ketones (Stick) Negative mg/dL (NEG) Urine Blood Negative (NEG) Urine Nitrite Negative (NEG) Urine Bilirubin Negative (NEG) Urine Urobilinogen Dipstick 1.0 mg/dL (0.2 mg/dL) Urine Leukocyte Esterase Negative (NEG) Urine RBC 0 /HPF (0-2) Urine WBC Occ /HPF (0-4) Urine Bacteria Few /HPF (0-FEW) Bedside Hemoglobin 14.3 g/dL (12-15) Bedside Hematocrit 42 % (36-40) Bedside Sodium 142 mmol/L (135-145) Bedside Potassium 3.9 mmol/L (3.5-5.0) Bedside Chloride 111 mmol/L (98-110) Bedside Total CO2 18 mmol/L (23-32) Bedside Blood Urea Nitrogen 18 mg/dL (8-26) Bedside Creatinine 1.5 mg/dL (0.5-1.4) Bedside Ionized Calcium (Rodney) 1.47 mmol/L (1.13-1.32) Bedside Troponin I 0.04 ng/ml (<0.08) Test 03/29/19 15:30 O2 Saturation 96 % (92-99) Arterial Blood pH 7.34 (7.35-7.45) Arterial Blood pH (Temp corrected) 7.32 Arterial Blood pCO2 at Patient Temp 33 mmHg (35-46) Arterial Blood pCO2 (Temp correct) 35 mmHg Arterial Blood pO2 at Patient Temp 92 mmHg (65-108) Arterial Blood pO2 (Temp corrected) 100 mmHg Arterial Blood HCO3 17 mmol/L (21-28) Arterial Blood Base Excess -8 mmol/L (-3-3) Oxyhemoglobin 94.9 % Methemoglobin 0.3 % (0.0-1.9) Carbon Monoxide, Quantitative 0.3 % (0.0-1.9) FiO2 40 Laboratory Tests Test 03/29/19 14:36 03/29/19 14:45 03/29/19 15:09 03/29/19 15:10 White Blood Count 7.1 x10^3/uL (4.0-11.0) Red Blood Count 4.78 x10^6/uL (3.50-5.40) Hemoglobin 14.1 g/dL (12.0-15.5) Hematocrit 42.2 % (36.0-47.0) Mean Corpuscular Volume 88 fL (79-100) Mean Corpuscular Hemoglobin 30 pg (25-35) Mean Corpuscular Hemoglobin Concent 33 g/dL (31-37) Red Cell Distribution Width 14.1 % (11.5-14.5) Platelet Count 248 x10^3/uL (140-400) Neutrophils (%) (Auto) 27 % (31-73) Lymphocytes (%) (Auto) 61 % (24-48) Monocytes (%) (Auto) 10 % (0-9) Eosinophils (%) (Auto) 1 % (0-3) Basophils (%) (Auto) 1 % (0-3) Neutrophils # (Auto) 1.9 x10^3uL (1.8-7.7) Lymphocytes # (Auto) 4.3 x10^3/uL (1.0-4.8) Monocytes # (Auto) 0.7 x10^3/uL (0.0-1.1) Eosinophils # (Auto) 0.1 x10^3/uL (0.0-0.7) Basophils # (Auto) 0.1 x10^3/uL (0.0-0.2) Prothrombin Time 20.1 SEC (11.7-14.0) Prothromb Time International Ratio 1.7 (0.8-1.1) Activated Partial Thromboplast Time 29 SEC (24-38) Sodium Level 140 mmol/L (136-145) Potassium Level 3.9 mmol/L (3.5-5.1) Chloride Level 104 mmol/L (98-107) Carbon Dioxide Level 18 mmol/L (21-32) Anion Gap 18 (6-14) 17 mmol/L (6-14) Blood Urea Nitrogen 18 mg/dL (7-20) Creatinine 1.8 mg/dL (0.6-1.0) Estimated GFR (Cockcroft-Gault) 33.9 BUN/Creatinine Ratio 10 (6-20) Glucose Level 210 mg/dL (70-99) 201 mg/dL (70-99) Lactic Acid Level 4.6 mmol/L (0.4-2.0) Calcium Level 11.1 mg/dL (8.5-10.1) Magnesium Level 1.8 mg/dL (1.8-2.4) Total Bilirubin 0.3 mg/dL (0.2-1.0) Aspartate Amino Transf (AST/SGOT) 31 U/L (15-37) Alanine Aminotransferase (ALT/SGPT) 40 U/L (14-59) Alkaline Phosphatase 82 U/L (46-116) Creatine Kinase 518 U/L (26-192) Troponin I Quantitative 0.046 ng/mL (0.000-0.055) Total Protein 8.8 g/dL (6.4-8.2) Albumin 4.3 g/dL (3.4-5.0) Albumin/Globulin Ratio 1.0 (1.0-1.7) Lipase 260 U/L (73-393) Procalcitonin < 0.10 ng/mL (0.00-0.10) Thyroid Stimulating Hormone (TSH) 7.165 uIU/mL (0.358-3.74) Urine Collection Type Unknown Urine Color Yellow Urine Clarity Cloudy Urine pH 6.0 Urine Specific [place] 1.025 Urine Protein Negative mg/dL (NEG-TRACE) Urine Glucose (UA) Negative mg/dL (NEG) Urine Ketones (Stick) Negative mg/dL (NEG) Urine Blood Negative (NEG) Urine Nitrite Negative (NEG) Urine Bilirubin Negative (NEG) Urine Urobilinogen Dipstick 1.0 mg/dL (0.2 mg/dL) Urine Leukocyte Esterase Negative (NEG) Urine RBC 0 /HPF (0-2) Urine WBC Occ /HPF (0-4) Urine Bacteria Few /HPF (0-FEW) Bedside Hemoglobin 14.3 g/dL (12-15) Bedside Hematocrit 42 % (36-40) Bedside Sodium 142 mmol/L (135-145) Bedside Potassium 3.9 mmol/L (3.5-5.0) Bedside Chloride 111 mmol/L (98-110) Bedside Total CO2 18 mmol/L (23-32) Bedside Blood Urea Nitrogen 18 mg/dL (8-26) Bedside Creatinine 1.5 mg/dL (0.5-1.4) Bedside Ionized Calcium (Rodney) 1.47 mmol/L (1.13-1.32) Bedside Troponin I 0.04 ng/ml (<0.08) Test 03/29/19 15:30 O2 Saturation 96 % (92-99) Arterial Blood pH 7.34 (7.35-7.45) Arterial Blood pH (Temp corrected) 7.32 Arterial Blood pCO2 at Patient Temp 33 mmHg (35-46) Arterial Blood pCO2 (Temp correct) 35 mmHg Arterial Blood pO2 at Patient Temp 92 mmHg (65-108) Arterial Blood pO2 (Temp corrected) 100 mmHg Arterial Blood HCO3 17 mmol/L (21-28) Arterial Blood Base Excess -8 mmol/L (-3-3) Oxyhemoglobin 94.9 % Methemoglobin 0.3 % (0.0-1.9) Carbon Monoxide, Quantitative 0.3 % (0.0-1.9) FiO2 40 VTE Prophylaxis Ordered VTE Prophylaxis Devices: Yes VTE Pharmacological Prophylaxi: Yes Assessment/Plan Assessment/Plan ASSESSMENT Acute Encephalopathy Acute Hypoxic Resp Failure due to AMS Suspected syncope and collapse Hyperthermia Chronic LBBB on oral AC, unclear why HTN NANETTE HTN HLD Hypothyroidism, TSH 7.1 mild CPK elevation PLAN: s/p LHC with [address] head not done in ED, will check STAT check b12, rpr, ammonia check blood cultures, dose of zosyn given in ED suspect vasovagal event [facility] pulm consult creatine 1.5. gentle IV hydration. labs in AM on coumadin? unclear why hold home meds for now till verified. start synthroid via IV route since TSH elevated. full code Problem Qualifiers (1) Altered mental status: Altered mental status type: unspecified Qualified Codes: R41.82 - Altered mental status, unspecified (2) Respiratory failure: Chronicity: acute Respiratory failure complication: hypoxia Qualified Codes: J96.01 - Acute respiratory failure with hypoxia ABY ARAUJO MD Mar 29, 2019 19:16
--- NOTE | 2019-03-29 19:32 | PDOC ---
PULMONARY PROGRESS NOTES Vitals Vital Signs Date Time Temp Pulse Resp B/P (MAP) Pulse Ox O2 Delivery O2 Flow Rate FiO2 03/29/19 19:00 92 20 115/64 (81) 100 Ventilator 03/29/19 17:05 98.2 98.2 03/29/19 14:30 15.0 Labs Laboratory Tests Test 03/29/19 14:36 03/29/19 14:45 03/29/19 15:09 03/29/19 15:10 White Blood Count 7.1 x10^3/uL (4.0-11.0) Red Blood Count 4.78 x10^6/uL (3.50-5.40) Hemoglobin 14.1 g/dL (12.0-15.5) Hematocrit 42.2 % (36.0-47.0) Mean Corpuscular Volume 88 fL (79-100) Mean Corpuscular Hemoglobin 30 pg (25-35) Mean Corpuscular Hemoglobin Concent 33 g/dL (31-37) Red Cell Distribution Width 14.1 % (11.5-14.5) Platelet Count 248 x10^3/uL (140-400) Neutrophils (%) (Auto) 27 % (31-73) Lymphocytes (%) (Auto) 61 % (24-48) Monocytes (%) (Auto) 10 % (0-9) Eosinophils (%) (Auto) 1 % (0-3) Basophils (%) (Auto) 1 % (0-3) Neutrophils # (Auto) 1.9 x10^3uL (1.8-7.7) Lymphocytes # (Auto) 4.3 x10^3/uL (1.0-4.8) Monocytes # (Auto) 0.7 x10^3/uL (0.0-1.1) Eosinophils # (Auto) 0.1 x10^3/uL (0.0-0.7) Basophils # (Auto) 0.1 x10^3/uL (0.0-0.2) Prothrombin Time 20.1 SEC (11.7-14.0) Prothromb Time International Ratio 1.7 (0.8-1.1) Activated Partial Thromboplast Time 29 SEC (24-38) Sodium Level 140 mmol/L (136-145) Potassium Level 3.9 mmol/L (3.5-5.1) Chloride Level 104 mmol/L (98-107) Carbon Dioxide Level 18 mmol/L (21-32) Anion Gap 18 (6-14) 17 mmol/L (6-14) Blood Urea Nitrogen 18 mg/dL (7-20) Creatinine 1.8 mg/dL (0.6-1.0) Estimated GFR (Cockcroft-Gault) 33.9 BUN/Creatinine Ratio 10 (6-20) Glucose Level 210 mg/dL (70-99) 201 mg/dL (70-99) Lactic Acid Level 4.6 mmol/L (0.4-2.0) Calcium Level 11.1 mg/dL (8.5-10.1) Magnesium Level 1.8 mg/dL (1.8-2.4) Total Bilirubin 0.3 mg/dL (0.2-1.0) Aspartate Amino Transf (AST/SGOT) 31 U/L (15-37) Alanine Aminotransferase (ALT/SGPT) 40 U/L (14-59) Alkaline Phosphatase 82 U/L (46-116) Creatine Kinase 518 U/L (26-192) Troponin I Quantitative 0.046 ng/mL (0.000-0.055) Total Protein 8.8 g/dL (6.4-8.2) Albumin 4.3 g/dL (3.4-5.0) Albumin/Globulin Ratio 1.0 (1.0-1.7) Lipase 260 U/L (73-393) Procalcitonin < 0.10 ng/mL (0.00-0.10) Thyroid Stimulating Hormone (TSH) 7.165 uIU/mL (0.358-3.74) Urine Collection Type Unknown Urine Color Yellow Urine Clarity Cloudy Urine pH 6.0 Urine Specific [place] 1.025 Urine Protein Negative mg/dL (NEG-TRACE) Urine Glucose (UA) Negative mg/dL (NEG) Urine Ketones (Stick) Negative mg/dL (NEG) Urine Blood Negative (NEG) Urine Nitrite Negative (NEG) Urine Bilirubin Negative (NEG) Urine Urobilinogen Dipstick 1.0 mg/dL (0.2 mg/dL) Urine Leukocyte Esterase Negative (NEG) Urine RBC 0 /HPF (0-2) Urine WBC Occ /HPF (0-4) Urine Bacteria Few /HPF (0-FEW) Bedside Hemoglobin 14.3 g/dL (12-15) Bedside Hematocrit 42 % (36-40) Bedside Sodium 142 mmol/L (135-145) Bedside Potassium 3.9 mmol/L (3.5-5.0) Bedside Chloride 111 mmol/L (98-110) Bedside Total CO2 18 mmol/L (23-32) Bedside Blood Urea Nitrogen 18 mg/dL (8-26) Bedside Creatinine 1.5 mg/dL (0.5-1.4) Bedside Ionized Calcium (Rodney) 1.47 mmol/L (1.13-1.32) Bedside Troponin I 0.04 ng/ml (<0.08) Test 03/29/19 15:30 03/29/19 18:50 O2 Saturation 96 % (92-99) Arterial Blood pH 7.34 (7.35-7.45) Arterial Blood pH (Temp corrected) 7.32 Arterial Blood pCO2 at Patient Temp 33 mmHg (35-46) Arterial Blood pCO2 (Temp correct) 35 mmHg Arterial Blood pO2 at Patient Temp 92 mmHg (65-108) Arterial Blood pO2 (Temp corrected) 100 mmHg Arterial Blood HCO3 17 mmol/L (21-28) Arterial Blood Base Excess -8 mmol/L (-3-3) Oxyhemoglobin 94.9 % Methemoglobin 0.3 % (0.0-1.9) Carbon Monoxide, Quantitative 0.3 % (0.0-1.9) FiO2 40 Lactic Acid Level 2.2 mmol/L (0.4-2.0) Laboratory Tests Test 03/29/19 14:36 03/29/19 14:45 03/29/19 15:09 03/29/19 15:10 White Blood Count 7.1 x10^3/uL (4.0-11.0) Red Blood Count 4.78 x10^6/uL (3.50-5.40) Hemoglobin 14.1 g/dL (12.0-15.5) Hematocrit 42.2 % (36.0-47.0) Mean Corpuscular Volume 88 fL (79-100) Mean Corpuscular Hemoglobin 30 pg (25-35) Mean Corpuscular Hemoglobin Concent 33 g/dL (31-37) Red Cell Distribution Width 14.1 % (11.5-14.5) Platelet Count 248 x10^3/uL (140-400) Neutrophils (%) (Auto) 27 % (31-73) Lymphocytes (%) (Auto) 61 % (24-48) Monocytes (%) (Auto) 10 % (0-9) Eosinophils (%) (Auto) 1 % (0-3) Basophils (%) (Auto) 1 % (0-3) Neutrophils # (Auto) 1.9 x10^3uL (1.8-7.7) Lymphocytes # (Auto) 4.3 x10^3/uL (1.0-4.8) Monocytes # (Auto) 0.7 x10^3/uL (0.0-1.1) Eosinophils # (Auto) 0.1 x10^3/uL (0.0-0.7) Basophils # (Auto) 0.1 x10^3/uL (0.0-0.2) Prothrombin Time 20.1 SEC (11.7-14.0) Prothromb Time International Ratio 1.7 (0.8-1.1) Activated Partial Thromboplast Time 29 SEC (24-38) Sodium Level 140 mmol/L (136-145) Potassium Level 3.9 mmol/L (3.5-5.1) Chloride Level 104 mmol/L (98-107) Carbon Dioxide Level 18 mmol/L (21-32) Anion Gap 18 (6-14) 17 mmol/L (6-14) Blood Urea Nitrogen 18 mg/dL (7-20) Creatinine 1.8 mg/dL (0.6-1.0) Estimated GFR (Cockcroft-Gault) 33.9 BUN/Creatinine Ratio 10 (6-20) Glucose Level 210 mg/dL (70-99) 201 mg/dL (70-99) Lactic Acid Level 4.6 mmol/L (0.4-2.0) Calcium Level 11.1 mg/dL (8.5-10.1) Magnesium Level 1.8 mg/dL (1.8-2.4) Total Bilirubin 0.3 mg/dL (0.2-1.0) Aspartate Amino Transf (AST/SGOT) 31 U/L (15-37) Alanine Aminotransferase (ALT/SGPT) 40 U/L (14-59) Alkaline Phosphatase 82 U/L (46-116) Creatine Kinase 518 U/L (26-192) Troponin I Quantitative 0.046 ng/mL (0.000-0.055) Total Protein 8.8 g/dL (6.4-8.2) Albumin 4.3 g/dL (3.4-5.0) Albumin/Globulin Ratio 1.0 (1.0-1.7) Lipase 260 U/L (73-393) Procalcitonin < 0.10 ng/mL (0.00-0.10) Thyroid Stimulating Hormone (TSH) 7.165 uIU/mL (0.358-3.74) Urine Collection Type Unknown Urine Color Yellow Urine Clarity Cloudy Urine pH 6.0 Urine Specific [place] 1.025 Urine Protein Negative mg/dL (NEG-TRACE) Urine Glucose (UA) Negative mg/dL (NEG) Urine Ketones (Stick) Negative mg/dL (NEG) Urine Blood Negative (NEG) Urine Nitrite Negative (NEG) Urine Bilirubin Negative (NEG) Urine Urobilinogen Dipstick 1.0 mg/dL (0.2 mg/dL) Urine Leukocyte Esterase Negative (NEG) Urine RBC 0 /HPF (0-2) Urine WBC Occ /HPF (0-4) Urine Bacteria Few /HPF (0-FEW) Bedside Hemoglobin 14.3 g/dL (12-15) Bedside Hematocrit 42 % (36-40) Bedside Sodium 142 mmol/L (135-145) Bedside Potassium 3.9 mmol/L (3.5-5.0) Bedside Chloride 111 mmol/L (98-110) Bedside Total CO2 18 mmol/L (23-32) Bedside Blood Urea Nitrogen 18 mg/dL (8-26) Bedside Creatinine 1.5 mg/dL (0.5-1.4) Bedside Ionized Calcium (Rodney) 1.47 mmol/L (1.13-1.32) Bedside Troponin I 0.04 ng/ml (<0.08) Test 03/29/19 15:30 03/29/19 18:50 O2 Saturation 96 % (92-99) Arterial Blood pH 7.34 (7.35-7.45) Arterial Blood pH (Temp corrected) 7.32 Arterial Blood pCO2 at Patient Temp 33 mmHg (35-46) Arterial Blood pCO2 (Temp correct) 35 mmHg Arterial Blood pO2 at Patient Temp 92 mmHg (65-108) Arterial Blood pO2 (Temp corrected) 100 mmHg Arterial Blood HCO3 17 mmol/L (21-28) Arterial Blood Base Excess -8 mmol/L (-3-3) Oxyhemoglobin 94.9 % Methemoglobin 0.3 % (0.0-1.9) Carbon Monoxide, Quantitative 0.3 % (0.0-1.9) FiO2 40 Lactic Acid Level 2.2 mmol/L (0.4-2.0) Medications Active Scripts Medications Dose Route/Sig Max Daily Dose Days Date Category Prednisone 20 Mg Tablet 1 Tab PO BID 10 01/15/18 Rx Prednisone 20 Mg Tablet 1 Tab PO DAILY 09/01/17 Rx Cyclobenzaprine Hcl 10 Mg Tablet 10 Mg PO TID 09/01/17 Rx [place] 5-325 Tablet (Acetaminophen/Hydrocodone Bitart) 1 Each Tablet 1-2 Tab PO Q4-6HRS PRN 08/02/16 Rx Medrol (Methylprednisolone) 4 Mg Tab.ds.pk 1 Pkg PO UD 08/02/16 Rx Sulf-Pred 10-0.23% Eye Drops (Sulfacetamide/Prednisolone Sp) 5 Ml Drops 5 Ml OP 10/26/13 Reported Stool Softener (Docusate Sodium) 100 Mg Capsule 100 Mg PO 10/26/13 Reported Simvastatin 20 Mg Tablet 20 Mg PO 10/26/13 Reported Omeprazole 20 Mg Capsule. 20 Mg PO 10/26/13 Reported Levothyroxine Sodium 150 Mcg Tablet 150 Mcg PO 10/26/13 Reported Donepezil Hcl 5 Mg Tablet 5 Mg PO 10/26/13 Reported Aspir-Low (Aspirin) 81 Mg Tablet. 81 Mg PO 10/26/13 Reported Amlodipine Besylate 10 Mg Tablet 10 Mg PO 10/26/13 Reported Metoprolol Succinate ( Xl ) (Metoprolol Succinate) 25 Mg Tab.er.24h 25 Mg PO 10/26/13 Reported Hydrocodone-Apap 7.5-325 (Hydrocodone Bit/Acetaminophen) 1 Each Tablet 1 Each PO 10/26/13 Reported Warfarin Sodium 5 Mg Tablet 5 Mg PO 10/26/13 Reported Warfarin Sodium 2.5 Mg Tablet 2.5 Mg PO 10/26/13 Reported Losartan Potassium 100 Mg Tablet 100 Mg PO 10/26/13 Reported Enoxaparin Sodium 80 Mg/0.8 Ml Disp.syrin 90 Mg SQ 10/26/13 Reported Impression . CONSULT TO BE DICTATED ACUTE RESP FAILURE CAD S/P CATH OUT OF HOSPITAL ARREST CONTINUE SUPPORT FOLLOW CARD INPUT AM LABS CXR REVIEWED EMPIRIC ANTIBX JAZMINE DÍAZ MD Mar 29, 2019 19:31
[2019-03-29 19:57] LABS: AMPHETAMINE/METHAMPHETAMINE NEG (NEG); BARBITURATES NEG (NEG); BENZODIAZEPINES NEG (NEG); CANNABINOIDS NEG (NEG); COCAINE NEG (NEG); METHADONE NEG (NEG); OPIATES POS (NEG); PHENCYCLIDINE NEG (NEG)
[2019-03-29] MEDS ORDERED: LEVOTHYROXINE SODIUM INJ 100 MCG in NORMAL SALINE 5 ML IVP SCH (21:00)
[2019-03-29] MEDS ORDERED: FAMO20TA5 PO (21:21)
[2019-03-29] MEDS ORDERED: ISOS60TA2 PO (21:21)
[2019-03-29] MEDS ORDERED: ATOR40TA59 PO (21:21)
[2019-03-29] MEDS ORDERED: FLUT9.9S NS (21:21)
[2019-03-29] MEDS ORDERED: MULT1TAB52 PO (21:21)
[2019-03-30] VITALS (24 sets, daily range): BP systolic 113–180; BP diastolic 53–90
[2019-03-30] MEDS: PROPOFOL 100 ML IV PRN ×3 (01:06→08:07)
--- NOTE | 2019-03-30 07:29 | PDOC ---
Infectious Disease Note Vital Sign Vital Signs Vital Signs Date Time Temp Pulse Resp B/P (MAP) Pulse Ox O2 Delivery O2 Flow Rate FiO2 03/30/19 06:00 98 20 153/79 (103) 100 Ventilator 03/30/19 04:00 99.8 99.8 03/29/19 14:30 15.0 Labs Lab Laboratory Tests Test 03/29/19 14:36 03/29/19 14:45 03/29/19 15:09 03/29/19 15:10 White Blood Count 7.1 x10^3/uL (4.0-11.0) Red Blood Count 4.78 x10^6/uL (3.50-5.40) Hemoglobin 14.1 g/dL (12.0-15.5) Hematocrit 42.2 % (36.0-47.0) Mean Corpuscular Volume 88 fL (79-100) Mean Corpuscular Hemoglobin 30 pg (25-35) Mean Corpuscular Hemoglobin Concent 33 g/dL (31-37) Red Cell Distribution Width 14.1 % (11.5-14.5) Platelet Count 248 x10^3/uL (140-400) Neutrophils (%) (Auto) 27 % (31-73) Lymphocytes (%) (Auto) 61 % (24-48) Monocytes (%) (Auto) 10 % (0-9) Eosinophils (%) (Auto) 1 % (0-3) Basophils (%) (Auto) 1 % (0-3) Neutrophils # (Auto) 1.9 x10^3uL (1.8-7.7) Lymphocytes # (Auto) 4.3 x10^3/uL (1.0-4.8) Monocytes # (Auto) 0.7 x10^3/uL (0.0-1.1) Eosinophils # (Auto) 0.1 x10^3/uL (0.0-0.7) Basophils # (Auto) 0.1 x10^3/uL (0.0-0.2) Prothrombin Time 20.1 SEC (11.7-14.0) Prothromb Time International Ratio 1.7 (0.8-1.1) Activated Partial Thromboplast Time 29 SEC (24-38) Sodium Level 140 mmol/L (136-145) Potassium Level 3.9 mmol/L (3.5-5.1) Chloride Level 104 mmol/L (98-107) Carbon Dioxide Level 18 mmol/L (21-32) Anion Gap 18 (6-14) 17 mmol/L (6-14) Blood Urea Nitrogen 18 mg/dL (7-20) Creatinine 1.8 mg/dL (0.6-1.0) Estimated GFR (Cockcroft-Gault) 33.9 BUN/Creatinine Ratio 10 (6-20) Glucose Level 210 mg/dL (70-99) 201 mg/dL (70-99) Lactic Acid Level 4.6 mmol/L (0.4-2.0) Calcium Level 11.1 mg/dL (8.5-10.1) Magnesium Level 1.8 mg/dL (1.8-2.4) Total Bilirubin 0.3 mg/dL (0.2-1.0) Aspartate Amino Transf (AST/SGOT) 31 U/L (15-37) Alanine Aminotransferase (ALT/SGPT) 40 U/L (14-59) Alkaline Phosphatase 82 U/L (46-116) Creatine Kinase 518 U/L (26-192) Troponin I Quantitative 0.046 ng/mL (0.000-0.055) Total Protein 8.8 g/dL (6.4-8.2) Albumin 4.3 g/dL (3.4-5.0) Albumin/Globulin Ratio 1.0 (1.0-1.7) Lipase 260 U/L (73-393) Vitamin B12 Level 657 pg/mL (247-911) Procalcitonin < 0.10 ng/mL (0.00-0.10) Thyroid Stimulating Hormone (TSH) 7.165 uIU/mL (0.358-3.74) Treponema pallidum Antibody Nonreactive (Nonreactive) Urine Collection Type Unknown Urine Color Yellow Urine Clarity Cloudy Urine pH 6.0 Urine Specific [place] 1.025 Urine Protein Negative mg/dL (NEG-TRACE) Urine Glucose (UA) Negative mg/dL (NEG) Urine Ketones (Stick) Negative mg/dL (NEG) Urine Blood Negative (NEG) Urine Nitrite Negative (NEG) Urine Bilirubin Negative (NEG) Urine Urobilinogen Dipstick 1.0 mg/dL (0.2 mg/dL) Urine Leukocyte Esterase Negative (NEG) Urine RBC 0 /HPF (0-2) Urine WBC Occ /HPF (0-4) Urine Bacteria Few /HPF (0-FEW) Bedside Hemoglobin 14.3 g/dL (12-15) Bedside Hematocrit 42 % (36-40) Bedside Sodium 142 mmol/L (135-145) Bedside Potassium 3.9 mmol/L (3.5-5.0) Bedside Chloride 111 mmol/L (98-110) Bedside Total CO2 18 mmol/L (23-32) Bedside Blood Urea Nitrogen 18 mg/dL (8-26) Bedside Creatinine 1.5 mg/dL (0.5-1.4) Bedside Ionized Calcium (Rodney) 1.47 mmol/L (1.13-1.32) Bedside Troponin I 0.04 ng/ml (<0.08) Test 03/29/19 15:30 03/29/19 18:50 03/29/19 19:06 03/29/19 20:42 O2 Saturation 96 % (92-99) Arterial Blood pH 7.34 (7.35-7.45) Arterial Blood pH (Temp corrected) 7.32 Arterial Blood pCO2 at Patient Temp 33 mmHg (35-46) Arterial Blood pCO2 (Temp correct) 35 mmHg Arterial Blood pO2 at Patient Temp 92 mmHg (65-108) Arterial Blood pO2 (Temp corrected) 100 mmHg Arterial Blood HCO3 17 mmol/L (21-28) Arterial Blood Base Excess -8 mmol/L (-3-3) Oxyhemoglobin 94.9 % Methemoglobin 0.3 % (0.0-1.9) Carbon Monoxide, Quantitative 0.3 % (0.0-1.9) FiO2 40 Lactic Acid Level 2.2 mmol/L (0.4-2.0) Urine Opiates Screen Pos (NEG) Urine Methadone Screen Neg (NEG) Urine Barbiturates Neg (NEG) Urine Phencyclidine Screen Neg (NEG) Urine Amphetamine/Methamphetamine Neg (NEG) Urine Benzodiazepines Screen Neg (NEG) Urine Cocaine Screen Neg (NEG) Urine Cannabinoids Screen Neg (NEG) Urine Ethyl Alcohol Neg (NEG) Ammonia 12 mcmol/L (11-34) Objective Assessment Out of hospital arrest - S/p Cardiac cath 03/29 - Three-vessel moderate coronary artery disease in the larger segments of the patient's vessels and Diffuse small vessel distal disease. Fever ? sec to hyperthermia/Cardiac arrest - ? reactive. From the notes she did not appear ill prior to going to the [facility]. Nml Procalcitonin/WBC acute Encephalopathy Lymphocytosis Acute Resp failure - Intubated NANETTE -improved Plan Plan of Care Cover with Zosyn for now but wean if CXR stable and cults neg. ? possible aspiration F/u labs and cults including lymphocytes D/w nursing 35 mins CC time Thank you # [id number] ANDIE DOE MD Mar 30, 2019 07:29
--- NOTE | 2019-03-30 07:56 | RAD ---
Portable chest, 03/30/2019: HISTORY: Respiratory failure Comparison is made to a study from 03/29/2019. The ET tube tip lies several centimeters above the elayne. An NG tube extends into the stomach. The heart is at the upper limits of normal in size. There is calcific plaquing the aorta. The pulmonary vascularity is normal. There is minimal retrocardiac atelectasis/infiltrate in the left base. The right lung is clear. No pleural fluid or pneumothorax is seen. IMPRESSION: No significant change since yesterday's study. Electronically signed by: James Forbes MD (03/30/2019 7:53 AM) [facility]
--- NOTE | 2019-03-30 08:03 | RAD ---
CT of the head without contrast, 03/29/2019: HISTORY: Respiratory failure, patient found down, dementia, hyperthermia Patient motion artifact is present. There is cerebral atrophy. There is moderate encephalomalacia in the right occipital lobe compatible with an old infarct. The ventricles are within normal limits in size. There is no shift of the midline structures. There is no evidence of acute intracranial hemorrhage or mass effect. Mild mucosal thickening is noted in the paranasal sinuses. IMPRESSION: 1. 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 2. No acute intracranial abnormality is detected. CT of the cervical spine without contrast, 03/29/2019: Noncontrast scans were obtained with multiplanar reconstructions produced. There is mild to moderate disc space narrowing throughout the cervical spine with moderate scattered marginal spurs. There are mild degenerative changes involving scattered facet joints bilaterally. There is moderate posterior disc bulging at C3 3-4. The posterior disc margins in much of the remainder of the cervical spine are obscured by artifacts. The degenerative changes are producing mild central spinal stenosis at multiple levels as well as mild to moderate foraminal stenosis at multiple levels most severe at C5-6 and C6-7. No acute fracture or subluxation is evident. ET and NG tubes are in place. There is mild calcific plaquing at the carotid bifurcations. IMPRESSION: 1. Moderate multilevel degenerative change as described above. 2. No acute bony abnormality is detected. PQRS Compliance Statement: One or more of the following individualized dose reduction techniques were utilized for this examination: 1. Automated exposure control 2. Adjustment of the mA and/or kV according to patient size 3. Use of iterative reconstruction technique Electronically signed by: James Forbes MD (03/30/2019 8:01 AM) [facility]
[2019-03-30 08:12] LABS: CHOLESTEROL/HDL RATIO 3.9
--- NOTE | 2019-03-30 08:30 | PDOC ---
PROGRESS NOTES Chief Complaint Chief Complaint Acute Encephalopathy Acute Hypoxic Resp Failure due to AMS Suspected syncope and collapse Hyperthermia Chronic LBBB Chronic anticoagulation HTN NANETTE HTN HLD Hypothyroidism, TSH 7.1 mild CPK elevation History of Present Illness History of Present Illness 68 yo female hx of HTN, hypothyroidism, HLD, GERD, Afib on coumadin who was at [facility] in the steam room and was found unresponsive by the workers. per report she was alone and was in the steam room for 1 hr. EMS was called and patient had a pulse but with agonal respirations. initial temp was 103 but she was in the steam room. GCS was reported at 4 initially. EMS read EKG as STEMI. patient transported to ED for evaluation. patient was placed on NRB in ED and intubated upon arrival. Per family she was in her usual state this AM. no fever, seats, chest pain, sob. In the ED EKG read as LBBB. Cardiology immediately took patient to the quality assurance lab technician which showed Three-vessel moderate coronary artery disease in the larger segments of the patient's vessels and Diffuse small vessel distal disease. no stents placed. Patient seen in ICU. currently intubated and sedated on vent. AC mode 40% FiO2. CC time 32 minutes Vitals Vitals Vital Signs Date Time Temp Pulse Resp B/P (MAP) Pulse Ox O2 Delivery O2 Flow Rate FiO2 03/30/19 07:48 100 Ventilator 03/30/19 07:00 98.8 94 20 147/75 (99) 98.8 03/29/19 14:30 15.0 Physical Exam General: Other Heart: Regular rate (SR LBBB) Abdomen: Soft Skin: No breakdown Labs LABS Laboratory Tests Test 03/29/19 14:36 03/29/19 14:45 03/29/19 15:09 03/29/19 15:10 White Blood Count 7.1 x10^3/uL (4.0-11.0) Red Blood Count 4.78 x10^6/uL (3.50-5.40) Hemoglobin 14.1 g/dL (12.0-15.5) Hematocrit 42.2 % (36.0-47.0) Mean Corpuscular Volume 88 fL (79-100) Mean Corpuscular Hemoglobin 30 pg (25-35) Mean Corpuscular Hemoglobin Concent 33 g/dL (31-37) Red Cell Distribution Width 14.1 % (11.5-14.5) Platelet Count 248 x10^3/uL (140-400) Neutrophils (%) (Auto) 27 % (31-73) Lymphocytes (%) (Auto) 61 % (24-48) Monocytes (%) (Auto) 10 % (0-9) Eosinophils (%) (Auto) 1 % (0-3) Basophils (%) (Auto) 1 % (0-3) Neutrophils # (Auto) 1.9 x10^3uL (1.8-7.7) Lymphocytes # (Auto) 4.3 x10^3/uL (1.0-4.8) Monocytes # (Auto) 0.7 x10^3/uL (0.0-1.1) Eosinophils # (Auto) 0.1 x10^3/uL (0.0-0.7) Basophils # (Auto) 0.1 x10^3/uL (0.0-0.2) Prothrombin Time 20.1 SEC (11.7-14.0) Prothromb Time International Ratio 1.7 (0.8-1.1) Activated Partial Thromboplast Time 29 SEC (24-38) Sodium Level 140 mmol/L (136-145) Potassium Level 3.9 mmol/L (3.5-5.1) Chloride Level 104 mmol/L (98-107) Carbon Dioxide Level 18 mmol/L (21-32) Anion Gap 18 (6-14) 17 mmol/L (6-14) Blood Urea Nitrogen 18 mg/dL (7-20) Creatinine 1.8 mg/dL (0.6-1.0) Estimated GFR (Cockcroft-Gault) 33.9 BUN/Creatinine Ratio 10 (6-20) Glucose Level 210 mg/dL (70-99) 201 mg/dL (70-99) Lactic Acid Level 4.6 mmol/L (0.4-2.0) Calcium Level 11.1 mg/dL (8.5-10.1) Magnesium Level 1.8 mg/dL (1.8-2.4) Total Bilirubin 0.3 mg/dL (0.2-1.0) Aspartate Amino Transf (AST/SGOT) 31 U/L (15-37) Alanine Aminotransferase (ALT/SGPT) 40 U/L (14-59) Alkaline Phosphatase 82 U/L (46-116) Creatine Kinase 518 U/L (26-192) Troponin I Quantitative 0.046 ng/mL (0.000-0.055) Total Protein 8.8 g/dL (6.4-8.2) Albumin 4.3 g/dL (3.4-5.0) Albumin/Globulin Ratio 1.0 (1.0-1.7) Lipase 260 U/L (73-393) Vitamin B12 Level 657 pg/mL (247-911) Procalcitonin < 0.10 ng/mL (0.00-0.10) Thyroid Stimulating Hormone (TSH) 7.165 uIU/mL (0.358-3.74) Treponema pallidum Antibody Nonreactive (Nonreactive) Urine Collection Type Unknown Urine Color Yellow Urine Clarity Cloudy Urine pH 6.0 Urine Specific [place] 1.025 Urine Protein Negative mg/dL (NEG-TRACE) Urine Glucose (UA) Negative mg/dL (NEG) Urine Ketones (Stick) Negative mg/dL (NEG) Urine Blood Negative (NEG) Urine Nitrite Negative (NEG) Urine Bilirubin Negative (NEG) Urine Urobilinogen Dipstick 1.0 mg/dL (0.2 mg/dL) Urine Leukocyte Esterase Negative (NEG) Urine RBC 0 /HPF (0-2) Urine WBC Occ /HPF (0-4) Urine Bacteria Few /HPF (0-FEW) Bedside Hemoglobin 14.3 g/dL (12-15) Bedside Hematocrit 42 % (36-40) Bedside Sodium 142 mmol/L (135-145) Bedside Potassium 3.9 mmol/L (3.5-5.0) Bedside Chloride 111 mmol/L (98-110) Bedside Total CO2 18 mmol/L (23-32) Bedside Blood Urea Nitrogen 18 mg/dL (8-26) Bedside Creatinine 1.5 mg/dL (0.5-1.4) Bedside Ionized Calcium (Rodney) 1.47 mmol/L (1.13-1.32) Bedside Troponin I 0.04 ng/ml (<0.08) Test 03/29/19 15:30 03/29/19 18:50 03/29/19 19:06 03/29/19 20:42 O2 Saturation 96 % (92-99) Arterial Blood pH 7.34 (7.35-7.45) Arterial Blood pH (Temp corrected) 7.32 Arterial Blood pCO2 at Patient Temp 33 mmHg (35-46) Arterial Blood pCO2 (Temp correct) 35 mmHg Arterial Blood pO2 at Patient Temp 92 mmHg (65-108) Arterial Blood pO2 (Temp corrected) 100 mmHg Arterial Blood HCO3 17 mmol/L (21-28) Arterial Blood Base Excess -8 mmol/L (-3-3) Oxyhemoglobin 94.9 % Methemoglobin 0.3 % (0.0-1.9) Carbon Monoxide, Quantitative 0.3 % (0.0-1.9) FiO2 40 Lactic Acid Level 2.2 mmol/L (0.4-2.0) Urine Opiates Screen Pos (NEG) Urine Methadone Screen Neg (NEG) Urine Barbiturates Neg (NEG) Urine Phencyclidine Screen Neg (NEG) Urine Amphetamine/Methamphetamine Neg (NEG) Urine Benzodiazepines Screen Neg (NEG) Urine Cocaine Screen Neg (NEG) Urine Cannabinoids Screen Neg (NEG) Urine Ethyl Alcohol Neg (NEG) Ammonia 12 mcmol/L (11-34) Test 03/30/19 07:25 Triglycerides Level 238 mg/dL (0-150) Cholesterol Level 148 mg/dL (0-200) LDL Cholesterol, Calculated 62 mg/dL (0-100) VLDL Cholesterol, Calculated 48 mg/dL (0-40) Non-HDL Cholesterol Calculated 110 mg/dL (0-129) HDL Cholesterol 38 mg/dL (40-60) Cholesterol/HDL Ratio 3.9 Assessment and Plan Assessmemt and Plan Problems Medical Problems: (1) Altered mental status Status: Acute (2) Hyperthermia Status: Acute (3) Respiratory failure Status: Acute Comment Review of Relevant I have reviewed the following items harry (where applicable) has been applied. Labs Laboratory Tests Test 03/29/19 14:36 03/29/19 14:45 03/29/19 15:09 03/29/19 15:10 White Blood Count 7.1 x10^3/uL (4.0-11.0) Red Blood Count 4.78 x10^6/uL (3.50-5.40) Hemoglobin 14.1 g/dL (12.0-15.5) Hematocrit 42.2 % (36.0-47.0) Mean Corpuscular Volume 88 fL (79-100) Mean Corpuscular Hemoglobin 30 pg (25-35) Mean Corpuscular Hemoglobin Concent 33 g/dL (31-37) Red Cell Distribution Width 14.1 % (11.5-14.5) Platelet Count 248 x10^3/uL (140-400) Neutrophils (%) (Auto) 27 % (31-73) Lymphocytes (%) (Auto) 61 % (24-48) Monocytes (%) (Auto) 10 % (0-9) Eosinophils (%) (Auto) 1 % (0-3) Basophils (%) (Auto) 1 % (0-3) Neutrophils # (Auto) 1.9 x10^3uL (1.8-7.7) Lymphocytes # (Auto) 4.3 x10^3/uL (1.0-4.8) Monocytes # (Auto) 0.7 x10^3/uL (0.0-1.1) Eosinophils # (Auto) 0.1 x10^3/uL (0.0-0.7) Basophils # (Auto) 0.1 x10^3/uL (0.0-0.2) Prothrombin Time 20.1 SEC (11.7-14.0) Prothromb Time International Ratio 1.7 (0.8-1.1) Activated Partial Thromboplast Time 29 SEC (24-38) Sodium Level 140 mmol/L (136-145) Potassium Level 3.9 mmol/L (3.5-5.1) Chloride Level 104 mmol/L (98-107) Carbon Dioxide Level 18 mmol/L (21-32) Anion Gap 18 (6-14) 17 mmol/L (6-14) Blood Urea Nitrogen 18 mg/dL (7-20) Creatinine 1.8 mg/dL (0.6-1.0) Estimated GFR (Cockcroft-Gault) 33.9 BUN/Creatinine Ratio 10 (6-20) Glucose Level 210 mg/dL (70-99) 201 mg/dL (70-99) Lactic Acid Level 4.6 mmol/L (0.4-2.0) Calcium Level 11.1 mg/dL (8.5-10.1) Magnesium Level 1.8 mg/dL (1.8-2.4) Total Bilirubin 0.3 mg/dL (0.2-1.0) Aspartate Amino Transf (AST/SGOT) 31 U/L (15-37) Alanine Aminotransferase (ALT/SGPT) 40 U/L (14-59) Alkaline Phosphatase 82 U/L (46-116) Creatine Kinase 518 U/L (26-192) Troponin I Quantitative 0.046 ng/mL (0.000-0.055) Total Protein 8.8 g/dL (6.4-8.2) Albumin 4.3 g/dL (3.4-5.0) Albumin/Globulin Ratio 1.0 (1.0-1.7) Lipase 260 U/L (73-393) Vitamin B12 Level 657 pg/mL (247-911) Procalcitonin < 0.10 ng/mL (0.00-0.10) Thyroid Stimulating Hormone (TSH) 7.165 uIU/mL (0.358-3.74) Treponema pallidum Antibody Nonreactive (Nonreactive) Urine Collection Type Unknown Urine Color Yellow Urine Clarity Cloudy Urine pH 6.0 Urine Specific [place] 1.025 Urine Protein Negative mg/dL (NEG-TRACE) Urine Glucose (UA) Negative mg/dL (NEG) Urine Ketones (Stick) Negative mg/dL (NEG) Urine Blood Negative (NEG) Urine Nitrite Negative (NEG) Urine Bilirubin Negative (NEG) Urine Urobilinogen Dipstick 1.0 mg/dL (0.2 mg/dL) Urine Leukocyte Esterase Negative (NEG) Urine RBC 0 /HPF (0-2) Urine WBC Occ /HPF (0-4) Urine Bacteria Few /HPF (0-FEW) Bedside Hemoglobin 14.3 g/dL (12-15) Bedside Hematocrit 42 % (36-40) Bedside Sodium 142 mmol/L (135-145) Bedside Potassium 3.9 mmol/L (3.5-5.0) Bedside Chloride 111 mmol/L (98-110) Bedside Total CO2 18 mmol/L (23-32) Bedside Blood Urea Nitrogen 18 mg/dL (8-26) Bedside Creatinine 1.5 mg/dL (0.5-1.4) Bedside Ionized Calcium (Rodney) 1.47 mmol/L (1.13-1.32) Bedside Troponin I 0.04 ng/ml (<0.08) Test 03/29/19 15:30 03/29/19 18:50 03/29/19 19:06 03/29/19 20:42 O2 Saturation 96 % (92-99) Arterial Blood pH 7.34 (7.35-7.45) Arterial Blood pH (Temp corrected) 7.32 Arterial Blood pCO2 at Patient Temp 33 mmHg (35-46) Arterial Blood pCO2 (Temp correct) 35 mmHg Arterial Blood pO2 at Patient Temp 92 mmHg (65-108) Arterial Blood pO2 (Temp corrected) 100 mmHg Arterial Blood HCO3 17 mmol/L (21-28) Arterial Blood Base Excess -8 mmol/L (-3-3) Oxyhemoglobin 94.9 % Methemoglobin 0.3 % (0.0-1.9) Carbon Monoxide, Quantitative 0.3 % (0.0-1.9) FiO2 40 Lactic Acid Level 2.2 mmol/L (0.4-2.0) Urine Opiates Screen Pos (NEG) Urine Methadone Screen Neg (NEG) Urine Barbiturates Neg (NEG) Urine Phencyclidine Screen Neg (NEG) Urine Amphetamine/Methamphetamine Neg (NEG) Urine Benzodiazepines Screen Neg (NEG) Urine Cocaine Screen Neg (NEG) Urine Cannabinoids Screen Neg (NEG) Urine Ethyl Alcohol Neg (NEG) Ammonia 12 mcmol/L (11-34) Test 03/30/19 07:25 Triglycerides Level 238 mg/dL (0-150) Cholesterol Level 148 mg/dL (0-200) LDL Cholesterol, Calculated 62 mg/dL (0-100) VLDL Cholesterol, Calculated 48 mg/dL (0-40) Non-HDL Cholesterol Calculated 110 mg/dL (0-129) HDL Cholesterol 38 mg/dL (40-60) Cholesterol/HDL Ratio 3.9 Laboratory Tests Test 03/29/19 14:36 03/29/19 14:45 03/29/19 15:09 03/29/19 15:10 White Blood Count 7.1 x10^3/uL (4.0-11.0) Red Blood Count 4.78 x10^6/uL (3.50-5.40) Hemoglobin 14.1 g/dL (12.0-15.5) Hematocrit 42.2 % (36.0-47.0) Mean Corpuscular Volume 88 fL (79-100) Mean Corpuscular Hemoglobin 30 pg (25-35) Mean Corpuscular Hemoglobin Concent 33 g/dL (31-37) Red Cell Distribution Width 14.1 % (11.5-14.5) Platelet Count 248 x10^3/uL (140-400) Neutrophils (%) (Auto) 27 % (31-73) Lymphocytes (%) (Auto) 61 % (24-48) Monocytes (%) (Auto) 10 % (0-9) Eosinophils (%) (Auto) 1 % (0-3) Basophils (%) (Auto) 1 % (0-3) Neutrophils # (Auto) 1.9 x10^3uL (1.8-7.7) Lymphocytes # (Auto) 4.3 x10^3/uL (1.0-4.8) Monocytes # (Auto) 0.7 x10^3/uL (0.0-1.1) Eosinophils # (Auto) 0.1 x10^3/uL (0.0-0.7) Basophils # (Auto) 0.1 x10^3/uL (0.0-0.2) Prothrombin Time 20.1 SEC (11.7-14.0) Prothromb Time International Ratio 1.7 (0.8-1.1) Activated Partial Thromboplast Time 29 SEC (24-38) Sodium Level 140 mmol/L (136-145) Potassium Level 3.9 mmol/L (3.5-5.1) Chloride Level 104 mmol/L (98-107) Carbon Dioxide Level 18 mmol/L (21-32) Anion Gap 18 (6-14) 17 mmol/L (6-14) Blood Urea Nitrogen 18 mg/dL (7-20) Creatinine 1.8 mg/dL (0.6-1.0) Estimated GFR (Cockcroft-Gault) 33.9 BUN/Creatinine Ratio 10 (6-20) Glucose Level 210 mg/dL (70-99) 201 mg/dL (70-99) Lactic Acid Level 4.6 mmol/L (0.4-2.0) Calcium Level 11.1 mg/dL (8.5-10.1) Magnesium Level 1.8 mg/dL (1.8-2.4) Total Bilirubin 0.3 mg/dL (0.2-1.0) Aspartate Amino Transf (AST/SGOT) 31 U/L (15-37) Alanine Aminotransferase (ALT/SGPT) 40 U/L (14-59) Alkaline Phosphatase 82 U/L (46-116) Creatine Kinase 518 U/L (26-192) Troponin I Quantitative 0.046 ng/mL (0.000-0.055) Total Protein 8.8 g/dL (6.4-8.2) Albumin 4.3 g/dL (3.4-5.0) Albumin/Globulin Ratio 1.0 (1.0-1.7) Lipase 260 U/L (73-393) Vitamin B12 Level 657 pg/mL (247-911) Procalcitonin < 0.10 ng/mL (0.00-0.10) Thyroid Stimulating Hormone (TSH) 7.165 uIU/mL (0.358-3.74) Treponema pallidum Antibody Nonreactive (Nonreactive) Urine Collection Type Unknown Urine Color Yellow Urine Clarity Cloudy Urine pH 6.0 Urine Specific [place] 1.025 Urine Protein Negative mg/dL (NEG-TRACE) Urine Glucose (UA) Negative mg/dL (NEG) Urine Ketones (Stick) Negative mg/dL (NEG) Urine Blood Negative (NEG) Urine Nitrite Negative (NEG) Urine Bilirubin Negative (NEG) Urine Urobilinogen Dipstick 1.0 mg/dL (0.2 mg/dL) Urine Leukocyte Esterase Negative (NEG) Urine RBC 0 /HPF (0-2) Urine WBC Occ /HPF (0-4) Urine Bacteria Few /HPF (0-FEW) Bedside Hemoglobin 14.3 g/dL (12-15) Bedside Hematocrit 42 % (36-40) Bedside Sodium 142 mmol/L (135-145) Bedside Potassium 3.9 mmol/L (3.5-5.0) Bedside Chloride 111 mmol/L (98-110) Bedside Total CO2 18 mmol/L (23-32) Bedside Blood Urea Nitrogen 18 mg/dL (8-26) Bedside Creatinine 1.5 mg/dL (0.5-1.4) Bedside Ionized Calcium (Rodney) 1.47 mmol/L (1.13-1.32) Bedside Troponin I 0.04 ng/ml (<0.08) Test 03/29/19 15:30 03/29/19 18:50 03/29/19 19:06 03/29/19 20:42 O2 Saturation 96 % (92-99) Arterial Blood pH 7.34 (7.35-7.45) Arterial Blood pH (Temp corrected) 7.32 Arterial Blood pCO2 at Patient Temp 33 mmHg (35-46) Arterial Blood pCO2 (Temp correct) 35 mmHg Arterial Blood pO2 at Patient Temp 92 mmHg (65-108) Arterial Blood pO2 (Temp corrected) 100 mmHg Arterial Blood HCO3 17 mmol/L (21-28) Arterial Blood Base Excess -8 mmol/L (-3-3) Oxyhemoglobin 94.9 % Methemoglobin 0.3 % (0.0-1.9) Carbon Monoxide, Quantitative 0.3 % (0.0-1.9) FiO2 40 Lactic Acid Level 2.2 mmol/L (0.4-2.0) Urine Opiates Screen Pos (NEG) Urine Methadone Screen Neg (NEG) Urine Barbiturates Neg (NEG) Urine Phencyclidine Screen Neg (NEG) Urine Amphetamine/Methamphetamine Neg (NEG) Urine Benzodiazepines Screen Neg (NEG) Urine Cocaine Screen Neg (NEG) Urine Cannabinoids Screen Neg (NEG) Urine Ethyl Alcohol Neg (NEG) Ammonia 12 mcmol/L (11-34) Test 03/30/19 07:25 Triglycerides Level 238 mg/dL (0-150) Cholesterol Level 148 mg/dL (0-200) LDL Cholesterol, Calculated 62 mg/dL (0-100) VLDL Cholesterol, Calculated 48 mg/dL (0-40) Non-HDL Cholesterol Calculated 110 mg/dL (0-129) HDL Cholesterol 38 mg/dL (40-60) Cholesterol/HDL Ratio 3.9 Medications Current Medications Heparin Sodium (Porcine) (Heparin Sodium) 10,000 unit STK-MED ONCE .ROUTE ; Start 03/29/19 at 14:45; Stop 03/29/19 at 14:46; Status DC Propofol 50 ml @ As Directed STK-MED ONCE IV ; Start 03/29/19 at 14:45; Stop 03/29/19 at 14:46; Status DC Sodium Chloride 1,000 ml @ 1,860 mls/hr Q33M IV Last administered on 03/29/19at 15:00; Start 03/29/19 at 15:00; Stop 03/29/19 at 16:00; Status DC Piperacillin Sod/ Tazobactam Sod 4.5 gm/Sodium Chloride 100 ml @ 200 mls/hr 1X ONCE IV Last administered on 03/29/19at 15:05; Start 03/29/19 at 15:30; Stop 03/29/19 at 15:59; Status DC Propofol 100 ml @ 0 mls/hr CONT PRN IV SEE PROTOCOL Last administered on 03/29/19at 20:59; Start 03/29/19 at 15:00; Stop 03/30/19 at 00:08; Status DC Acetaminophen (Tylenol Supp) 650 mg 1X ONCE MO ; Start 03/29/19 at 15:00; Stop 03/29/19 at 15:01; Status DC Heparin Sodium (Porcine) (Heparin Sodium) 10,000 unit STK-MED ONCE .ROUTE ; Start 03/29/19 at 16:05; Stop 03/29/19 at 16:06; Status DC Verapamil HCl (Verapamil) 5 mg STK-MED ONCE .ROUTE ; Start 03/29/19 at 16:05; Stop 03/29/19 at 16:06; Status DC Nitroglycerin (Nitroglycerin) 200 mcg STK-MED ONCE .ROUTE ; Start 03/29/19 at 16:05; Stop 03/29/19 at 16:06; Status DC Etomidate (Amidate) 20 mg STK-MED ONCE IV ; Start 03/29/19 at 16:08; Stop 03/29/19 at 16:09; Status DC Succinylcholine Chloride (Anectine) 200 mg STK-MED ONCE .ROUTE ; Start 03/29/19 at 16:08; Stop 03/29/19 at 16:09; Status DC Nitroglycerin (Nitroglycerin) 200 mcg 1X ONCE IART Last administered on 03/29/19at 16:15; Start 03/29/19 at 16:15; Stop 03/29/19 at 16:19; Status DC Verapamil HCl (Verapamil) 2.5 mg 1X ONCE IART Last administered on 03/29/19at 16:15; Start 03/29/19 at 16:15; Stop 03/29/19 at 16:19; Status DC Heparin Sodium (Porcine) (Heparin Sodium) 2,500 unit 1X ONCE IART Last administered on 03/29/19at 16:15; Start 03/29/19 at 16:15; Stop 03/29/19 at 16:19; Status DC Heparin Sodium/ Sodium Chloride (HEPARIN for ARTERIAL LINE FLUSH) 1,000 unit 1X ONCE IART Last administered on 03/29/19at 16:15; Start 03/29/19 at 16:15; Stop 03/29/19 at 16:19; Status DC Heparin Sodium/ Sodium Chloride (HEPARIN for ARTERIAL LINE FLUSH) 1,000 unit 1X ONCE IART Last administered on 03/29/19at 16:15; Start 03/29/19 at 16:15; Stop 03/29/19 at 16:19; Status DC Iodixanol (Visipaque 320) 100 ml 1X ONCE IART Last administered on 03/29/19at 16:15; Start 03/29/19 at 16:15; Stop 03/29/19 at 16:19; Status DC Lidocaine HCl (Lidocaine 1% 20ml Vial) 20 ml 1X ONCE INJ Last administered on 03/29/19at 16:15; Start 03/29/19 at 16:15; Stop 03/29/19 at 16:19; Status DC Info (CONTRAST GIVEN -- Rx MONITORING) 1 each PRN DAILY PRN MC SEE COMMENTS; Start 03/29/19 at 16:30; Stop 03/31/19 at 16:29 Sodium Chloride 1,000 ml @ 125 mls/hr 1X ONCE IV Last administered on 03/29/19at 19:24; Start 03/29/19 at 16:45; Stop 03/30/19 at 00:44; Status DC Sodium Chloride (Normal Saline Flush) 3 ml QSHIFT PRN IV AFTER MEDS AND BLOOD DRAWS; Start 03/29/19 at 17:45 Nitroglycerin (Nitrostat) 0.4 mg PRN Q5MIN PRN SL CHEST PAIN; Start 03/29/19 at 17:45 Levothyroxine Sodium 100 mcg/ Sodium Chloride 5 ml @ 100 mls/hr Q72H IVP Last administered on 03/29/19at 21:07; Start 03/29/19 at 21:00 Propofol 100 ml @ 0 mls/hr CONT PRN IV SEE I/O RECORD Last administered on 03/30/19at 08:07; Start 03/30/19 at 00:15 Piperacillin Sod/ Tazobactam Sod 3.375 gm/Sodium Chloride 50 ml @ 100 mls/hr Q6HRS IV ; Start 03/30/19 at 07:15 Active Scripts Active Reported Atorvastatin Calcium 40 Mg Tablet 1 Tab PO DAILY Isosorbide Mononitrate Er (Isosorbide Mononitrate) 60 Mg Tab.er.24h 2 Tab PO DAILY Flonase Allergy Relief (Fluticasone Propionate) 9.9 Ml [place].susp 2 Sprays NS DAILY Famotidine 20 Mg Tablet 10 Mg PO DAILY Multivitamins (Multivitamin) 1 Each Tablet 1 Tab PO DAILY Stool Softener (Docusate Sodium) 100 Mg Capsule 100 Mg PO Levothyroxine Sodium 150 Mcg Tablet 150 Mcg PO Donepezil Hcl 5 Mg Tablet 5 Mg PO Aspir-Low (Aspirin) 81 Mg Tablet.dr 81 Mg PO Amlodipine Besylate 10 Mg Tablet 10 Mg PO Warfarin Sodium 5 Mg Tablet 5 Mg PO Warfarin Sodium 2.5 Mg Tablet 2.5 Mg PO Losartan Potassium 100 Mg Tablet 100 Mg PO Vitals/I & O Vital Sign - Last 24 Hours 03/29/19 03/29/19 03/29/19 03/29/19 14:30 14:40 14:45 14:50 Temp 103.0 103.0 Pulse 69 120 122 Resp 12 12 20 B/P (MAP) 112/82 (92) Pulse Ox 99 100 98 98 O2 Delivery NonRebreather Mask Ventilator O2 Flow Rate 15.0 03/29/19 03/29/19 03/29/19 03/29/19 14:50 14:55 15:00 15:00 Temp 101.3 101.3 Pulse 132 134 136 Resp 20 20 20 Pulse Ox 98 98 98 03/29/19 03/29/19 03/29/19 03/29/19 15:05 15:10 15:15 15:20 Pulse 130 132 128 118 Resp 20 20 20 20 Pulse Ox 98 98 98 98 03/29/19 03/29/19 03/29/19 03/29/19 15:25 15:30 15:35 15:40 Pulse 108 108 104 106 Resp 20 20 20 20 Pulse Ox 97 97 98 98 03/29/19 03/29/19 03/29/19 03/29/19 16:15 16:41 17:05 17:30 Temp 98.2 98.2 Pulse 99 94 97 96 Resp 21 20 20 B/P (MAP) 107/61 (76) 111/61 (78) Pulse Ox 100 100 99 O2 Delivery Ventilator Ventilator Ventilator 03/29/19 03/29/19 03/29/19 03/29/19 17:36 17:45 18:02 18:04 Pulse 97 93 Resp 20 20 B/P (MAP) 117/64 (81) 120/64 (82) Pulse Ox 98 98 99 O2 Delivery Ventilator Ventilator Ventilator Mechanical Ventilator 03/29/19 03/29/19 03/29/19 03/29/19 18:45 19:00 19:57 20:00 Temp 98.4 98.4 Pulse 90 92 92 Resp 20 20 20 B/P (MAP) 135/72 (93) 115/64 (81) 107/64 (78) Pulse Ox 100 100 100 O2 Delivery Ventilator Ventilator Mechanical Ventilator Ventilator 03/29/19 03/29/19 03/29/19 03/29/19 20:50 21:00 22:00 23:00 Pulse 94 97 89 Resp 20 20 20 B/P (MAP) 107/56 (73) 150/69 (96) 134/60 (84) Pulse Ox 98 100 100 100 O2 Delivery Ventilator Ventilator Ventilator Ventilator 03/29/19 03/30/19 03/30/19 03/30/19 23:49 00:00 00:33 01:00 Temp 100.0 100.0 Pulse 88 98 Resp 20 20 B/P (MAP) 137/61 (86) 134/62 (86) Pulse Ox 100 100 100 O2 Delivery Mechanical Ventilator Ventilator Ventilator Ventilator 03/30/19 03/30/19 03/30/19 03/30/19 02:00 03:00 03:30 04:00 Temp 99.8 99.8 Pulse 91 91 86 Resp 20 20 20 B/P (MAP) 127/58 (81) 121/61 (81) 113/63 (80) Pulse Ox 100 100 100 O2 Delivery Ventilator Ventilator Mechanical Ventilator Ventilator 03/30/19 03/30/19 03/30/19 03/30/19 04:27 05:00 05:50 06:00 Pulse 100 98 Resp 20 20 B/P (MAP) 129/66 (87) 153/79 (103) Pulse Ox 100 100 100 100 O2 Delivery Ventilator Ventilator Ventilator Ventilator 03/30/19 03/30/19 07:00 07:48 Temp 98.8 98.8 Pulse 94 Resp 20 B/P (MAP) 147/75 (99) Pulse Ox 100 100 O2 Delivery Ventilator Ventilator Intake and Output 03/29/19 03/29/19 03/30/19 14:59 22:59 06:59 Intake Total 105 ml 1240 ml Output Total 525 ml 1050 ml Balance -420 ml [address] head - 1. 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 2. No acute intracranial abnormality is detected. LUZ ELENA CARDOSO MD Mar 30, 2019 08:29
--- NOTE | 2019-03-30 08:50 | CONS ---
DATE OF CONSULTATION: 03/30/2019 INFECTIOUS DISEASE CONSULTATION LOCATION: The patient is in room, ICU 13. REQUESTING PHYSICIAN: Dr. Monk; March ____, Nurse Practitioner for Cardiology. REASON FOR CONSULTATION: Fever, concern for sepsis, ventilated. HISTORY OF PRESENT ILLNESS: The patient is currently intubated, sedated, unable to provide any past medical history, history of present illness or review of systems. This is obtained mainly from the discussion with nursing and from the chart. The patient is a 68-year-old female with a history of known hyperlipidemia, hypothyroidism, questionable atrial fibrillation, who apparently was found at the [facility] in the steam room unresponsive by workers. Apparently, she had been in there for approximately an hour or so, EMS was called, a pulse was detected, but she had agonal respirations. Initial temperature was 103 in the steam room. EMS read EKG as a STEMI. She was transported to [facility]. EKG was read as left bundle branch block. White blood cell count was 7.1 with 61% lymphocytes and she did have a temp of 103 axillary on arrival. Initial chest x-ray after intubation showed some mild bibasilar lung airspace opacities. She was taken emergently to the mobile home laborer and was found to have 3-vessel moderate coronary artery disease in the larger segments of the patient's vessels and diffuse small vessel distal disease. She was transferred to the Intensive Care Unit. She was given a dose of Zosyn. Urinalysis is clean and cultures are pending. PAST MEDICAL HISTORY: According to the notes is positive for hypertension, hyperlipidemia, dementia, gastroesophageal reflux disease, osteoarthritis, glaucoma, hypothyroidism, obesity, questionable atrial fibrillation. PAST SURGICAL HISTORY: Positive for the tubal ligation as well as above-mentioned cardiac cath. REVIEW OF SYSTEMS: Unobtainable. SOCIAL HISTORY: No reported alcohol or drugs. She quit tobacco. FAMILY HISTORY: Positive for heart disease. ALLERGIES: Listed as TOLBUTAMIDE. MEDICATIONS: Levothyroxine, propofol, she had Zosyn x 1, verapamil. Other meds are available and have been reviewed in the chart. PHYSICAL EXAMINATION: VITAL SIGNS: T-max was 103 axillary on arrival, currently 99.8; pulse 98, respirations 20, blood pressure 153/79, satting 100% on the ventilator. She is intubated. She is sedated. HEENT: She has small pupils. Normal conjunctivae. NECK: Supple, no JVD. LUNGS: Decreased in the bases. HEART: S1 and S2. ABDOMEN: Obese, soft, nontender. OG tube is in place. GENITOURINARY: Floyd is in place. EXTREMITIES: Without clubbing or cyanosis. No gross edema. SKIN: Without generalized signs of rash. IVs, peripheral IV is clean. LABORATORY VALUES: White count was 7.1 on arrival; hemoglobin of 14.3; platelets 248; neutrophils 67; lymphs were 61, previously elevated at 50 back in 07/2016. Creatinine of 1.5, was 1.8 on arrival. She had normal liver function study tests. Glucose was 210. Procalcitonin was less than 0.1. Troponin 0.046. Initially, creatine kinase was 518. Lactic acid was 4.6, now down to 2.2 last evening. Urinalysis clean. Syphilis test negative. Drug screen positive for opiates. IMPRESSION: 1. [id number] arrest, status post cardiac cath on the , again with the above-mentioned findings of 3-vessel moderate coronary artery disease. 2. Fever, questionable secondary to hyperthermia/cardiac arrest, questionable reactive. From the note, she did not appear ill prior to going to the [facility]. She has a normal procalcitonin and a white blood cell count. 3. Acute encephalopathy. 4. Lymphocytosis. 5. Acute respiratory failure, currently intubated. 6. Acute kidney injury, improved. RECOMMENDATIONS: For now, we will cover with Zosyn, but we will wean if her chest x-ray is stable and cultures are negative, questionable possible aspiration. Follow up on labs and cultures including lymphocytes, this was discussed with nursing. I spent 35 minutes critical care time. Thank you for asking us to participate in this patient's care. If you have any questions, please do not hesitate to contact me. ANDIE DOE MD DR: CHILANGO/erendira JOB#: [id number] / [id number]
[2019-03-30] MEDS: PIPERACILLIN/TAZOBACTAM 3.375 GM in IV NORMAL SALINE 50ML 50 ML IV SCH ×3 (08:55→18:22)
[2019-03-30 09:04] LABS: BASE EXCESS ABG -1 mmol/L (-3-3); HCO3 ABG 21 mmol/L (21-28); PCO2 ABG 27 mmHg (35-46); PO2 ABG 85 mmHg (65-108); SAT O2 ABG 96 % (92-99)
[2019-03-30 09:33] LABS: FIO2 ABG 40
--- NOTE | 2019-03-30 10:23 | CARD ---
MR#: [id number] Date of Study: 03/30/2019 Ordering Physician: VALERIE MCFARLANE, Referring Physician: ABY ARAUJO Tech: Mabel Amezcua APPROVED REPORT EXAM: Two-dimensional and M-mode echocardiogram with Doppler and color Doppler. Other Information Quality : AverageHR: 97bpm Technically limited study due to INDICATION Arrhythmia Atrial Fibrillation Left Bundle Branch Block RISK FACTORS Hypertension Hyperlipidemia 2D DIMENSIONS RVDd2.3 (2.9-3.5cm)Left Atrium(2D)3.3 (1.6-4.0cm) IVSd1.4 (0.7-1.1cm)Aortic Root(2D)2.7 (2.0-3.7cm) LVDd4.2 (3.9-5.9cm)LVOT Diameter1.9 (1.8-2.4cm) PWd1.2 (0.7-1.1cm)LVDs3.1 (2.5-4.0cm) FS (%) 25.9 %SV41.1 ml LVEF(%)51.2 (>50%) Aortic Valve AoV Peak Jose Roberto.219.4cm/sAoV VTI31.7cm AO Peak GR.19.3mmHgLVOT VTI 12.91cm AO Mean GR.10mmHg Mitral Valve MV E Myoqbhpz87.0cm/sMV DECEL [id number] MV A Rzhvjboa245.2cm/sE/A Ratio0.7 TDI Lateral E' P. V7.53cm/sMedial E' P. V4.70cm/s E/Lateral E'10.9E/Medial E'17.4 Pulmonary Vein S1 Ildwztwv23.6cm/sS2 Cgvlbtnz43.47cm/s D2 Qcskeqqd68.5cm/sPVa bhfxplfh02lvpo LEFT VENTRICLE The left ventricle is normal size. There is mild to moderate concentric left ventricular hypertrophy. The left ventricular systolic function is mildly impaired. EF 40-45% Septal motion suggestive of con duction defect. Transmitral Doppler flow pattern is Grade I-abnormal relaxation pattern. RIGHT VENTRICLE The right ventricle is normal size. There is normal right ventricular wall thickness. The right ventr icular systolic function is normal. ATRIA The left atrium size is normal. The right atrium size is normal. The interatrial septum is intact wit h no evidence for an atrial septal defect or patent foramen ovale as noted on 2-D or Doppler imaging. AORTIC VALVE The aortic valve is calcified but opens well. Doppler and Color Flow revealed no significant aortic r egurgitation. There is no significant aortic valvular stenosis. MITRAL VALVE The mitral valve is normal in structure and function. There is no evidence of mitral valve prolapse. There is no mitral valve stenosis. Doppler and Color-flow revealed trace mitral regurgitation. TRICUSPID VALVE The tricuspid valve is normal in structure and function. Doppler and Color Flow revealed no tricuspid valve regurgitation noted with an estimated PAP of 21 mmHg. There is no tricuspid valve stenosis. PULMONIC VALVE The pulmonic valve is not well visualized. Doppler and Color Flow revealed no pulmonic valvular regur gitation. There is no pulmonic valvular stenosis. GREAT VESSELS The aortic root is normal in size. The IVC is normal in size and collapses >50% with inspiration. PERICARDIAL EFFUSION There is small left pleural effusion. There is a trace circumferential pericardial effusion. Critical Notification Critical Value: No <Conclusion> Septal motion suggestive of conduction defect. The left ventricular systolic function is mildly impaired. EF 40-45% Signed by : Ross Wagner, Electronically Approved : 03/30/2019 10:22:43
--- NOTE | 2019-03-30 11:53 | PDOC ---
PULMONARY PROGRESS NOTES Subjective PT ON AC MODE AWAKE AND ALERT SHAKES YES TO WANTING TUBE OUT OF AIRWAY NO RESP DISTRESS Vitals Vital Signs Date Time Temp Pulse Resp B/P (MAP) Pulse Ox O2 Delivery O2 Flow Rate FiO2 03/30/19 11:33 100 Ventilator 03/30/19 11:00 83 16 169/85 (113) 03/30/19 07:00 98.8 98.8 03/29/19 14:30 15.0 General: Alert Lungs: Crackles Cardiovascular: S1, S2 Abdomen: Soft Neuro Exam: Alert Extremities: No Edema Skin: Warm Labs Laboratory Tests Test 03/29/19 14:36 03/29/19 14:45 03/29/19 15:09 03/29/19 15:10 White Blood Count 7.1 x10^3/uL (4.0-11.0) Red Blood Count 4.78 x10^6/uL (3.50-5.40) Hemoglobin 14.1 g/dL (12.0-15.5) Hematocrit 42.2 % (36.0-47.0) Mean Corpuscular Volume 88 fL (79-100) Mean Corpuscular Hemoglobin 30 pg (25-35) Mean Corpuscular Hemoglobin Concent 33 g/dL (31-37) Red Cell Distribution Width 14.1 % (11.5-14.5) Platelet Count 248 x10^3/uL (140-400) Neutrophils (%) (Auto) 27 % (31-73) Lymphocytes (%) (Auto) 61 % (24-48) Monocytes (%) (Auto) 10 % (0-9) Eosinophils (%) (Auto) 1 % (0-3) Basophils (%) (Auto) 1 % (0-3) Neutrophils # (Auto) 1.9 x10^3uL (1.8-7.7) Lymphocytes # (Auto) 4.3 x10^3/uL (1.0-4.8) Monocytes # (Auto) 0.7 x10^3/uL (0.0-1.1) Eosinophils # (Auto) 0.1 x10^3/uL (0.0-0.7) Basophils # (Auto) 0.1 x10^3/uL (0.0-0.2) Prothrombin Time 20.1 SEC (11.7-14.0) Prothromb Time International Ratio 1.7 (0.8-1.1) Activated Partial Thromboplast Time 29 SEC (24-38) Sodium Level 140 mmol/L (136-145) Potassium Level 3.9 mmol/L (3.5-5.1) Chloride Level 104 mmol/L (98-107) Carbon Dioxide Level 18 mmol/L (21-32) Anion Gap 18 (6-14) 17 mmol/L (6-14) Blood Urea Nitrogen 18 mg/dL (7-20) Creatinine 1.8 mg/dL (0.6-1.0) Estimated GFR (Cockcroft-Gault) 33.9 BUN/Creatinine Ratio 10 (6-20) Glucose Level 210 mg/dL (70-99) 201 mg/dL (70-99) Lactic Acid Level 4.6 mmol/L (0.4-2.0) Calcium Level 11.1 mg/dL (8.5-10.1) Magnesium Level 1.8 mg/dL (1.8-2.4) Total Bilirubin 0.3 mg/dL (0.2-1.0) Aspartate Amino Transf (AST/SGOT) 31 U/L (15-37) Alanine Aminotransferase (ALT/SGPT) 40 U/L (14-59) Alkaline Phosphatase 82 U/L (46-116) Creatine Kinase 518 U/L (26-192) Troponin I Quantitative 0.046 ng/mL (0.000-0.055) Total Protein 8.8 g/dL (6.4-8.2) Albumin 4.3 g/dL (3.4-5.0) Albumin/Globulin Ratio 1.0 (1.0-1.7) Lipase 260 U/L (73-393) Vitamin B12 Level 657 pg/mL (247-911) Procalcitonin < 0.10 ng/mL (0.00-0.10) Thyroid Stimulating Hormone (TSH) 7.165 uIU/mL (0.358-3.74) Treponema pallidum Antibody Nonreactive (Nonreactive) Urine Collection Type Unknown Urine Color Yellow Urine Clarity Cloudy Urine pH 6.0 Urine Specific Dittmer 1.025 Urine Protein Negative mg/dL (NEG-TRACE) Urine Glucose (UA) Negative mg/dL (NEG) Urine Ketones (Stick) Negative mg/dL (NEG) Urine Blood Negative (NEG) Urine Nitrite Negative (NEG) Urine Bilirubin Negative (NEG) Urine Urobilinogen Dipstick 1.0 mg/dL (0.2 mg/dL) Urine Leukocyte Esterase Negative (NEG) Urine RBC 0 /HPF (0-2) Urine WBC Occ /HPF (0-4) Urine Bacteria Few /HPF (0-FEW) Bedside Hemoglobin 14.3 g/dL (12-15) Bedside Hematocrit 42 % (36-40) Bedside Sodium 142 mmol/L (135-145) Bedside Potassium 3.9 mmol/L (3.5-5.0) Bedside Chloride 111 mmol/L (98-110) Bedside Total CO2 18 mmol/L (23-32) Bedside Blood Urea Nitrogen 18 mg/dL (8-26) Bedside Creatinine 1.5 mg/dL (0.5-1.4) Bedside Ionized Calcium (Rodney) 1.47 mmol/L (1.13-1.32) Bedside Troponin I 0.04 ng/ml (<0.08) Test 03/29/19 15:30 03/29/19 18:50 03/29/19 19:06 03/29/19 20:42 O2 Saturation 96 % (92-99) Arterial Blood pH 7.34 (7.35-7.45) Arterial Blood pH (Temp corrected) 7.32 Arterial Blood pCO2 at Patient Temp 33 mmHg (35-46) Arterial Blood pCO2 (Temp correct) 35 mmHg Arterial Blood pO2 at Patient Temp 92 mmHg (65-108) Arterial Blood pO2 (Temp corrected) 100 mmHg Arterial Blood HCO3 17 mmol/L (21-28) Arterial Blood Base Excess -8 mmol/L (-3-3) Oxyhemoglobin 94.9 % Methemoglobin 0.3 % (0.0-1.9) Carbon Monoxide, Quantitative 0.3 % (0.0-1.9) FiO2 40 Lactic Acid Level 2.2 mmol/L (0.4-2.0) Urine Opiates Screen Pos (NEG) Urine Methadone Screen Neg (NEG) Urine Barbiturates Neg (NEG) Urine Phencyclidine Screen Neg (NEG) Urine Amphetamine/Methamphetamine Neg (NEG) Urine Benzodiazepines Screen Neg (NEG) Urine Cocaine Screen Neg (NEG) Urine Cannabinoids Screen Neg (NEG) Urine Ethyl Alcohol Neg (NEG) Ammonia 12 mcmol/L (11-34) Test 03/30/19 07:25 03/30/19 08:00 Triglycerides Level 238 mg/dL (0-150) Cholesterol Level 148 mg/dL (0-200) LDL Cholesterol, Calculated 62 mg/dL (0-100) VLDL Cholesterol, Calculated 48 mg/dL (0-40) Non-HDL Cholesterol Calculated 110 mg/dL (0-129) HDL Cholesterol 38 mg/dL (40-60) Cholesterol/HDL Ratio 3.9 O2 Saturation 96 % (92-99) Arterial Blood pH 7.50 (7.35-7.45) Arterial Blood pCO2 at Patient Temp 27 mmHg (35-46) Arterial Blood pO2 at Patient Temp 85 mmHg (65-108) Arterial Blood HCO3 21 mmol/L (21-28) Arterial Blood Base Excess -1 mmol/L (-3-3) FiO2 40 Laboratory Tests Test 03/29/19 14:36 03/29/19 14:45 03/29/19 15:09 03/29/19 15:10 White Blood Count 7.1 x10^3/uL (4.0-11.0) Red Blood Count 4.78 x10^6/uL (3.50-5.40) Hemoglobin 14.1 g/dL (12.0-15.5) Hematocrit 42.2 % (36.0-47.0) Mean Corpuscular Volume 88 fL (79-100) Mean Corpuscular Hemoglobin 30 pg (25-35) Mean Corpuscular Hemoglobin Concent 33 g/dL (31-37) Red Cell Distribution Width 14.1 % (11.5-14.5) Platelet Count 248 x10^3/uL (140-400) Neutrophils (%) (Auto) 27 % (31-73) Lymphocytes (%) (Auto) 61 % (24-48) Monocytes (%) (Auto) 10 % (0-9) Eosinophils (%) (Auto) 1 % (0-3) Basophils (%) (Auto) 1 % (0-3) Neutrophils # (Auto) 1.9 x10^3uL (1.8-7.7) Lymphocytes # (Auto) 4.3 x10^3/uL (1.0-4.8) Monocytes # (Auto) 0.7 x10^3/uL (0.0-1.1) Eosinophils # (Auto) 0.1 x10^3/uL (0.0-0.7) Basophils # (Auto) 0.1 x10^3/uL (0.0-0.2) Prothrombin Time 20.1 SEC (11.7-14.0) Prothromb Time International Ratio 1.7 (0.8-1.1) Activated Partial Thromboplast Time 29 SEC (24-38) Sodium Level 140 mmol/L (136-145) Potassium Level 3.9 mmol/L (3.5-5.1) Chloride Level 104 mmol/L (98-107) Carbon Dioxide Level 18 mmol/L (21-32) Anion Gap 18 (6-14) 17 mmol/L (6-14) Blood Urea Nitrogen 18 mg/dL (7-20) Creatinine 1.8 mg/dL (0.6-1.0) Estimated GFR (Cockcroft-Gault) 33.9 BUN/Creatinine Ratio 10 (6-20) Glucose Level 210 mg/dL (70-99) 201 mg/dL (70-99) Lactic Acid Level 4.6 mmol/L (0.4-2.0) Calcium Level 11.1 mg/dL (8.5-10.1) Magnesium Level 1.8 mg/dL (1.8-2.4) Total Bilirubin 0.3 mg/dL (0.2-1.0) Aspartate Amino Transf (AST/SGOT) 31 U/L (15-37) Alanine Aminotransferase (ALT/SGPT) 40 U/L (14-59) Alkaline Phosphatase 82 U/L (46-116) Creatine Kinase 518 U/L (26-192) Troponin I Quantitative 0.046 ng/mL (0.000-0.055) Total Protein 8.8 g/dL (6.4-8.2) Albumin 4.3 g/dL (3.4-5.0) Albumin/Globulin Ratio 1.0 (1.0-1.7) Lipase 260 U/L (73-393) Vitamin B12 Level 657 pg/mL (247-911) Procalcitonin < 0.10 ng/mL (0.00-0.10) Thyroid Stimulating Hormone (TSH) 7.165 uIU/mL (0.358-3.74) Treponema pallidum Antibody Nonreactive (Nonreactive) Urine Collection Type Unknown Urine Color Yellow Urine Clarity Cloudy Urine pH 6.0 Urine Specific Dittmer 1.025 Urine Protein Negative mg/dL (NEG-TRACE) Urine Glucose (UA) Negative mg/dL (NEG) Urine Ketones (Stick) Negative mg/dL (NEG) Urine Blood Negative (NEG) Urine Nitrite Negative (NEG) Urine Bilirubin Negative (NEG) Urine Urobilinogen Dipstick 1.0 mg/dL (0.2 mg/dL) Urine Leukocyte Esterase Negative (NEG) Urine RBC 0 /HPF (0-2) Urine WBC Occ /HPF (0-4) Urine Bacteria Few /HPF (0-FEW) Bedside Hemoglobin 14.3 g/dL (12-15) Bedside Hematocrit 42 % (36-40) Bedside Sodium 142 mmol/L (135-145) Bedside Potassium 3.9 mmol/L (3.5-5.0) Bedside Chloride 111 mmol/L (98-110) Bedside Total CO2 18 mmol/L (23-32) Bedside Blood Urea Nitrogen 18 mg/dL (8-26) Bedside Creatinine 1.5 mg/dL (0.5-1.4) Bedside Ionized Calcium (Rodney) 1.47 mmol/L (1.13-1.32) Bedside Troponin I 0.04 ng/ml (<0.08) Test 03/29/19 15:30 03/29/19 18:50 03/29/19 19:06 03/29/19 20:42 O2 Saturation 96 % (92-99) Arterial Blood pH 7.34 (7.35-7.45) Arterial Blood pH (Temp corrected) 7.32 Arterial Blood pCO2 at Patient Temp 33 mmHg (35-46) Arterial Blood pCO2 (Temp correct) 35 mmHg Arterial Blood pO2 at Patient Temp 92 mmHg (65-108) Arterial Blood pO2 (Temp corrected) 100 mmHg Arterial Blood HCO3 17 mmol/L (21-28) Arterial Blood Base Excess -8 mmol/L (-3-3) Oxyhemoglobin 94.9 % Methemoglobin 0.3 % (0.0-1.9) Carbon Monoxide, Quantitative 0.3 % (0.0-1.9) FiO2 40 Lactic Acid Level 2.2 mmol/L (0.4-2.0) Urine Opiates Screen Pos (NEG) Urine Methadone Screen Neg (NEG) Urine Barbiturates Neg (NEG) Urine Phencyclidine Screen Neg (NEG) Urine Amphetamine/Methamphetamine Neg (NEG) Urine Benzodiazepines Screen Neg (NEG) Urine Cocaine Screen Neg (NEG) Urine Cannabinoids Screen Neg (NEG) Urine Ethyl Alcohol Neg (NEG) Ammonia 12 mcmol/L (11-34) Test 03/30/19 07:25 03/30/19 08:00 Triglycerides Level 238 mg/dL (0-150) Cholesterol Level 148 mg/dL (0-200) LDL Cholesterol, Calculated 62 mg/dL (0-100) VLDL Cholesterol, Calculated 48 mg/dL (0-40) Non-HDL Cholesterol Calculated 110 mg/dL (0-129) HDL Cholesterol 38 mg/dL (40-60) Cholesterol/HDL Ratio 3.9 O2 Saturation 96 % (92-99) Arterial Blood pH 7.50 (7.35-7.45) Arterial Blood pCO2 at Patient Temp 27 mmHg (35-46) Arterial Blood pO2 at Patient Temp 85 mmHg (65-108) Arterial Blood HCO3 21 mmol/L (21-28) Arterial Blood Base Excess -1 mmol/L (-3-3) FiO2 40 Medications Active Scripts Medications Dose Route/Sig Max Daily Dose Days Date Category Prednisone 20 Mg Tablet 1 Tab PO BID 10 01/15/18 Rx Prednisone 20 Mg Tablet 1 Tab PO DAILY 09/01/17 Rx Cyclobenzaprine Hcl 10 Mg Tablet 10 Mg PO TID 09/01/17 Rx [place] 5-325 Tablet (Acetaminophen/Hydrocodone Bitart) 1 Each Tablet 1-2 Tab PO Q4-6HRS PRN 08/02/16 Rx Medrol (Methylprednisolone) 4 Mg Tab.ds.pk 1 Pkg PO UD 08/02/16 Rx Sulf-Pred 10-0.23% Eye Drops (Sulfacetamide/Prednisolone Sp) 5 Ml Drops 5 Ml OP 10/26/13 Reported Stool Softener (Docusate Sodium) 100 Mg Capsule 100 Mg PO 10/26/13 Reported Simvastatin 20 Mg Tablet 20 Mg PO 10/26/13 Reported Omeprazole 20 Mg Capsule.dr 20 Mg PO 10/26/13 Reported Levothyroxine Sodium 150 Mcg Tablet 150 Mcg PO 10/26/13 Reported Donepezil Hcl 5 Mg Tablet 5 Mg PO 10/26/13 Reported Aspir-Low (Aspirin) 81 Mg Tablet.dr 81 Mg PO 1/23/14 Reported Amlodipine Besylate 10 Mg Tablet 10 Mg PO 10/26/13 Reported Metoprolol Succinate ( Xl ) (Metoprolol Succinate) 25 Mg Tab.er.24h 25 Mg PO 10/26/13 Reported Hydrocodone-Apap 7.5-325 (Hydrocodone Bit/Acetaminophen) 1 Each Tablet 1 Each PO 10/26/13 Reported Warfarin Sodium 5 Mg Tablet 5 Mg PO 10/26/13 Reported Warfarin Sodium 2.5 Mg Tablet 2.5 Mg PO 10/26/13 Reported Losartan Potassium 100 Mg Tablet 100 Mg PO 10/26/13 Reported Enoxaparin Sodium 80 Mg/0.8 Ml Disp.syrin 90 Mg SQ 10/26/13 Reported Impression . FEVER PER ID ACUTE RESP FAILURE CAD S/P CATH OUT OF HOSPITAL PARTIAL ARREST CT HEAD NEGATIVE FOR ACTIVE BLEED Plan . TRIAL AND POSSIBLE EXTUBATION D/W SISTER AT BEDSIDE FOLLOW CARD INPUT AM LABS EMPIRIC ANTIBX PER ID JAZMINE DÍAZ MD Mar 30, 2019 11:53
--- NOTE | 2019-03-30 13:36 | PDOC ---
CARDIO Progress Notes Date and Time Date of Service 03/30/19 Time of Evaluation 1310 Subjective Subjective: Other (s/p extubation. cough with thick secretions) Vitals Vitals Vital Signs Date Time Temp Pulse Resp B/P (MAP) Pulse Ox O2 Delivery O2 Flow Rate FiO2 03/30/19 12:58 100 Ventilator 03/30/19 12:00 98.6 105 22 180/90 (120) 98.6 03/29/19 14:30 15.0 Weight Weight [ ] Input and Output Intake and Output Intake and Output 03/30/19 06:59 Intake Total 1345 ml Output Total 1575 ml Balance -230 ml Intake Oral 0 ml IV Total 1345 ml Output Urine Total 1575 ml Laboratory Labs Laboratory Tests Test 03/29/19 14:36 03/29/19 14:45 03/29/19 15:09 03/29/19 15:10 White Blood Count 7.1 x10^3/uL (4.0-11.0) Red Blood Count 4.78 x10^6/uL (3.50-5.40) Hemoglobin 14.1 g/dL (12.0-15.5) Hematocrit 42.2 % (36.0-47.0) Mean Corpuscular Volume 88 fL (79-100) Mean Corpuscular Hemoglobin 30 pg (25-35) Mean Corpuscular Hemoglobin Concent 33 g/dL (31-37) Red Cell Distribution Width 14.1 % (11.5-14.5) Platelet Count 248 x10^3/uL (140-400) Neutrophils (%) (Auto) 27 % (31-73) Lymphocytes (%) (Auto) 61 % (24-48) Monocytes (%) (Auto) 10 % (0-9) Eosinophils (%) (Auto) 1 % (0-3) Basophils (%) (Auto) 1 % (0-3) Neutrophils # (Auto) 1.9 x10^3uL (1.8-7.7) Lymphocytes # (Auto) 4.3 x10^3/uL (1.0-4.8) Monocytes # (Auto) 0.7 x10^3/uL (0.0-1.1) Eosinophils # (Auto) 0.1 x10^3/uL (0.0-0.7) Basophils # (Auto) 0.1 x10^3/uL (0.0-0.2) Prothrombin Time 20.1 SEC (11.7-14.0) Prothromb Time International Ratio 1.7 (0.8-1.1) Activated Partial Thromboplast Time 29 SEC (24-38) Sodium Level 140 mmol/L (136-145) Potassium Level 3.9 mmol/L (3.5-5.1) Chloride Level 104 mmol/L (98-107) Carbon Dioxide Level 18 mmol/L (21-32) Anion Gap 18 (6-14) 17 mmol/L (6-14) Blood Urea Nitrogen 18 mg/dL (7-20) Creatinine 1.8 mg/dL (0.6-1.0) Estimated GFR (Cockcroft-Gault) 33.9 BUN/Creatinine Ratio 10 (6-20) Glucose Level 210 mg/dL (70-99) 201 mg/dL (70-99) Lactic Acid Level 4.6 mmol/L (0.4-2.0) Calcium Level 11.1 mg/dL (8.5-10.1) Magnesium Level 1.8 mg/dL (1.8-2.4) Total Bilirubin 0.3 mg/dL (0.2-1.0) Aspartate Amino Transf (AST/SGOT) 31 U/L (15-37) Alanine Aminotransferase (ALT/SGPT) 40 U/L (14-59) Alkaline Phosphatase 82 U/L (46-116) Creatine Kinase 518 U/L (26-192) Troponin I Quantitative 0.046 ng/mL (0.000-0.055) Total Protein 8.8 g/dL (6.4-8.2) Albumin 4.3 g/dL (3.4-5.0) Albumin/Globulin Ratio 1.0 (1.0-1.7) Lipase 260 U/L (73-393) Vitamin B12 Level 657 pg/mL (247-911) Procalcitonin < 0.10 ng/mL (0.00-0.10) Thyroid Stimulating Hormone (TSH) 7.165 uIU/mL (0.358-3.74) Treponema pallidum Antibody Nonreactive (Nonreactive) Urine Collection Type Unknown Urine Color Yellow Urine Clarity Cloudy Urine pH 6.0 Urine Specific [place] 1.025 Urine Protein Negative mg/dL (NEG-TRACE) Urine Glucose (UA) Negative mg/dL (NEG) Urine Ketones (Stick) Negative mg/dL (NEG) Urine Blood Negative (NEG) Urine Nitrite Negative (NEG) Urine Bilirubin Negative (NEG) Urine Urobilinogen Dipstick 1.0 mg/dL (0.2 mg/dL) Urine Leukocyte Esterase Negative (NEG) Urine RBC 0 /HPF (0-2) Urine WBC Occ /HPF (0-4) Urine Bacteria Few /HPF (0-FEW) Bedside Hemoglobin 14.3 g/dL (12-15) Bedside Hematocrit 42 % (36-40) Bedside Sodium 142 mmol/L (135-145) Bedside Potassium 3.9 mmol/L (3.5-5.0) Bedside Chloride 111 mmol/L (98-110) Bedside Total CO2 18 mmol/L (23-32) Bedside Blood Urea Nitrogen 18 mg/dL (8-26) Bedside Creatinine 1.5 mg/dL (0.5-1.4) Bedside Ionized Calcium (Rodney) 1.47 mmol/L (1.13-1.32) Bedside Troponin I 0.04 ng/ml (<0.08) Test 03/29/19 15:30 03/29/19 18:50 03/29/19 19:06 03/29/19 20:42 O2 Saturation 96 % (92-99) Arterial Blood pH 7.34 (7.35-7.45) Arterial Blood pH (Temp corrected) 7.32 Arterial Blood pCO2 at Patient Temp 33 mmHg (35-46) Arterial Blood pCO2 (Temp correct) 35 mmHg Arterial Blood pO2 at Patient Temp 92 mmHg (65-108) Arterial Blood pO2 (Temp corrected) 100 mmHg Arterial Blood HCO3 17 mmol/L (21-28) Arterial Blood Base Excess -8 mmol/L (-3-3) Oxyhemoglobin 94.9 % Methemoglobin 0.3 % (0.0-1.9) Carbon Monoxide, Quantitative 0.3 % (0.0-1.9) FiO2 40 Lactic Acid Level 2.2 mmol/L (0.4-2.0) Urine Opiates Screen Pos (NEG) Urine Methadone Screen Neg (NEG) Urine Barbiturates Neg (NEG) Urine Phencyclidine Screen Neg (NEG) Urine Amphetamine/Methamphetamine Neg (NEG) Urine Benzodiazepines Screen Neg (NEG) Urine Cocaine Screen Neg (NEG) Urine Cannabinoids Screen Neg (NEG) Urine Ethyl Alcohol Neg (NEG) Ammonia 12 mcmol/L (11-34) Test 03/30/19 07:25 03/30/19 08:00 Triglycerides Level 238 mg/dL (0-150) Cholesterol Level 148 mg/dL (0-200) LDL Cholesterol, Calculated 62 mg/dL (0-100) VLDL Cholesterol, Calculated 48 mg/dL (0-40) Non-HDL Cholesterol Calculated 110 mg/dL (0-129) HDL Cholesterol 38 mg/dL (40-60) Cholesterol/HDL Ratio 3.9 O2 Saturation 96 % (92-99) Arterial Blood pH 7.50 (7.35-7.45) Arterial Blood pCO2 at Patient Temp 27 mmHg (35-46) Arterial Blood pO2 at Patient Temp 85 mmHg (65-108) Arterial Blood HCO3 21 mmol/L (21-28) Arterial Blood Base Excess -1 mmol/L (-3-3) FiO2 40 Physical Exam HEENT: Neck Supple W Full Motion Chest: Symmetric LUNGS: Clear to Auscultation Heart: S1S2, RRR Abdomen: Soft N/T Neurology: alert, oriented, follow commands Assessment Assessment 1. Acute respiratory failure: s/p extubation 03/30. No arrhythmias noted. 2. Fever; Tmax 103. ? Etiology. BC pending. as per ID 3. CAD; Known small vessel disease. Follows with cardiology. Records r evhariniwed; most recent cath with 70-80% distal LAD lesions in small caliber vessel and 80% stenosis in the mid PLV branch of the RCA, which is also a small caliber vessel. Both being medically management. C yesterday consistent with these previous findings. 4. Chronic LBBB: compared to 2016 EKG 5. Metabolic encephalopathy; improved 6. Chronic systolic HF; LVEF 40-45%; clinically compensated 7. NANETTE 8. HTN; controlled 9. HLP; statin 10. Hypothyroidism 11. H/o DVT on warfarin therapy; INR 1.7 12. ARACELY Recommendations Secondary prevention as able VEHICLE DAMAGE APPRAISER to evaluate swallow Resume oral meds when able to take PO; ASA, BB, statin, Imdur, ARB Metoprolol IV in meantime Echo 12/2018 at Normal LV size and wall thickness. Borderline ejection fraction (~50%). Normal RV size and function. Mild right atrial enlargement. Mitral annular calcification without significant stenosis or regurgitation. Mild aortic valve stenosis. Estimated Peak Systolic PA Pressure 24 mmHg Regadenoson Stress Test 12/2018 at [facility] SUMMARY/OPINION: This study is abnormal secondary to the small sized, mild intensity, predominantly reversible perfusion defect of the apical anterior wall and true LV apex. This is likely corresponding to the patient's known high-grade disease in the very distal portion of the LAD. There were no other significant perfusion abnormalities. There is mildly reduced global LV systolic dysfunction, which is an intermediate risk factor in terms of annual cardiovascular mortality. There are no definitive regional wall motion changes. There was slightly reduced thickening in the apical anterior wall consistent with the aforementioned perfusion abnormality. The pharmacologic stress ECG was nondiagnostic for ischemia. The patient did develop an intermittent atypical left bundle branch block, which has been previously documented for the patient as well. Comparison was made to a prior study which was performed on the [facility] camera on April 09, 2011. The calculated ejection fraction on the prior study was 51% with an end-diastolic volume of 77 mL. The prior study demonstrated a similar reversible perfusion abnormality that was small in size and more moderate in intensity of the LV apex. Comparing the 2 studies qualitatively, there is been no significant interval changes. The distribution of the perfusion abnormality is quite similar. The calculated ejection fractions are also similar. The calculated summed stress score was slightly higher on the prior study, but the difference in imaging technology (ADAC versus D SPECT) should also be taken into account. In aggregate the current study is intermediate risk in regards to predicted annual cardiovascular mortality rate ELOY DILLON APRN Mar 30, 2019 13:36
--- NOTE | 2019-03-30 15:41 | CONS ---
DATE OF CONSULTATION: 03/29/2019 ATTENDING PHYSICIAN: Dr. Iniguez. REASON FOR CONSULTATION: The patient seen in pulmonary consultation at the request of Dr. Iniguez for vent management. HISTORY OF PRESENT ILLNESS: The patient is a 68-year-old female admitted with unresponsiveness. She was at the [facility] in the steam room, was found unresponsive, agonal respirations, but had no lost pulse. She was given some Narcan. She was transported by EMS and intubated in the Emergency Department. She is currently on assist control ventilation. She underwent the emergent cardiac catheterization revealing left ventricular end diastolic pressure of 12, diffuse small vessel disease, 3-vessel moderate coronary artery disease in the larger segments of the patient's vessels. The patient is currently sedated, hemodynamically stable. I was asked to see her in consultation. PAST MEDICAL HISTORY: Obtained by reviewing the current documentation. There is a history of hypertension, hyperlipidemia, dementia, gastroesophageal reflux, osteoarthritis, and glaucoma. There is also a history of hypothyroidism. PAST SURGICAL HISTORY: Previous tubal ligation. FAMILY HISTORY: Heart disease. SOCIAL HISTORY: Apparently, she utilized tobacco and quit some time ago. ALLERGIES: Listed to TOLBUTAMIDE. REVIEW OF SYSTEMS: Unobtainable secondary to the patient's condition. PHYSICAL EXAMINATION: GENERAL: The patient was in the Intensive Care Unit on assist control ventilation. VITAL SIGNS: Stable. O2 saturation is greater than 92%. HEENT: Eyes, the sclerae were nonicteric. NECK: Jugular venous distention was not elevated. No lymphadenopathy. CHEST: Full expansion. LUNGS: Adequate airway flow with no wheezes. CARDIOVASCULAR: Regular rate and rhythm with S1 and S2, no S3. ABDOMEN: Soft. EXTREMITIES: No clubbing, cyanosis or edema. LABORATORY DATA AND DIAGNOSTIC STUDIES: Labs were reviewed. Arterial blood gas; pH of 7.34, PaCO2 of 33, pO2 of 92. White count was normal, hemoglobin and hematocrit were noted. Electrolytes were noted. BUN was 18, creatinine was 1.8. Lactic acid level initially elevated. INR was 1.7. Toxicology screen was positive for opiates. UA was noted. Serology for Treponema pallidum was negative. Chest x-ray was reviewed, basilar airspace disease. IMPRESSION: 1. Acute respiratory failure secondary to [place] near arrest. 2. Coronary artery disease status post emergent coronary catheterization revealed no significant disease. 3. Fever. 4. Acute encephalopathy. 5. Lymphocytosis. 6. Acute kidney injury. PLAN: 1. Adjust minute ventilation. Continue assist control ventilation. 2. CT head and neck. 3. Consult ID, already performed. 4. Empiric antibiotics. 5. We will review the above and make adjustments depending on clinical response. I do appreciate the privilege in sharing in the patient's care. JAZMINE DÍAZ MD DR: DELL/erendira JOB#: [id number] / [id number]
[2019-03-30] MEDS: METOPROLOL TARTRATE 5 MG/5 ML VIAL. IVP SCH (18:23)
[2019-03-30] MEDS ORDERED: ATORVASTATIN CALCIUM 40 MG TABLET. PO SCH (21:00)
[2019-03-30] MEDS: DOCUSATE SODIUM 100 MG CAPSULE. PO SCH (21:00)
[2019-03-31] VITALS (13 sets, daily range): BP systolic 120–154; BP diastolic 50–80
[2019-03-31] MEDS: PIPERACILLIN/TAZOBACTAM 3.375 GM in IV NORMAL SALINE 50ML 50 ML IV SCH ×3 (00:14→13:10)
[2019-03-31] MEDS: METOPROLOL TARTRATE 5 MG/5 ML VIAL. IVP SCH ×3 (01:59→06:00)
[2019-03-31 05:13] LABS: BASO # 0.1 x10^3/uL (0.0-0.2); BASO % 1 % (0-3); EOS % 0 % (0-3); HEMATOCRIT 39.4 % (36.0-47.0); HEMOGLOBIN 13.2 g/dL (12.0-15.5); LYMPH # 3.2 x10^3/uL (1.0-4.8); LYMPH % 39 % (24-48); MEAN CORPUSCULAR HEMOGLOBIN 30 pg (25-35); MEAN CORPUSCULAR HGB CONC 33 g/dL (31-37); MEAN CORPUSCULAR VOLUME 89 fL (79-100); MONO # 0.8 x10^3/uL (0.0-1.1); MONO % 10 % (0-9); NEUT % 50 % (31-73); PLATELET COUNT 177 x10^3/uL (140-400); RED BLOOD COUNT 4.44 x10^6/uL (3.50-5.40); RED CELL DISTRIBUTION WIDTH 14.7 % (11.5-14.5); WHITE BLOOD COUNT 8.1 x10^3/uL (4.0-11.0)
[2019-03-31 05:31] LABS: CALCIUM 9.7 mg/dL (8.5-10.1); GFR 66.7; POTASSIUM 3.5 mmol/L (3.5-5.1)
[2019-03-31] MEDS ORDERED: LEVOTHYROXINE 150 MCG TABLET PO SCH (06:00)
--- NOTE | 2019-03-31 06:32 | PDOC ---
Infectious Disease Note Subjective Subjective Feeling ok. Occ cough - but better No F/C/S/N/V/D/Rash/SOA. Is hungry and thirsty Has a little superficial abd discomfort ROS ROS o/w neg Vital Sign Vital Signs Vital Signs Date Time Temp Pulse Resp B/P (MAP) Pulse Ox O2 Delivery O2 Flow Rate FiO2 03/31/19 04:00 98.7 54 18 134/68 (90) 100 Nasal Cannula 2.0 98.7 Physical Exam PHYSICAL EXAM GEN: She is Alert and coop. Looks well HEENT: PERRL. Normal conjunctivae. Oc/OP - clear NECK: Supple, no JVD. LUNGS: Decreased in the bases. HEART: S1 and S2. ABDOMEN: Obese, soft, nontender. No guard/rebound/erythema/induration GENITOURINARY: Floyd is in place. EXTREMITIES: Without clubbing or cyanosis. No gross edema. SKIN: Without generalized signs of rash. NEURO: Alert and appropriate IVs, peripheral IV is clean. Labs Lab Laboratory Tests Test 03/30/19 07:25 03/30/19 08:00 03/31/19 04:00 Triglycerides Level 238 mg/dL (0-150) Cholesterol Level 148 mg/dL (0-200) LDL Cholesterol, Calculated 62 mg/dL (0-100) VLDL Cholesterol, Calculated 48 mg/dL (0-40) Non-HDL Cholesterol Calculated 110 mg/dL (0-129) HDL Cholesterol 38 mg/dL (40-60) Cholesterol/HDL Ratio 3.9 O2 Saturation 96 % (92-99) Arterial Blood pH 7.50 (7.35-7.45) Arterial Blood pCO2 at Patient Temp 27 mmHg (35-46) Arterial Blood pO2 at Patient Temp 85 mmHg (65-108) Arterial Blood HCO3 21 mmol/L (21-28) Arterial Blood Base Excess -1 mmol/L (-3-3) FiO2 40 White Blood Count 8.1 x10^3/uL (4.0-11.0) Red Blood Count 4.44 x10^6/uL (3.50-5.40) Hemoglobin 13.2 g/dL (12.0-15.5) Hematocrit 39.4 % (36.0-47.0) Mean Corpuscular Volume 89 fL (79-100) Mean Corpuscular Hemoglobin 30 pg (25-35) Mean Corpuscular Hemoglobin Concent 33 g/dL (31-37) Red Cell Distribution Width 14.7 % (11.5-14.5) Platelet Count 177 x10^3/uL (140-400) Neutrophils (%) (Auto) 50 % (31-73) Lymphocytes (%) (Auto) 39 % (24-48) Monocytes (%) (Auto) 10 % (0-9) Eosinophils (%) (Auto) 0 % (0-3) Basophils (%) (Auto) 1 % (0-3) Neutrophils # (Auto) 4.0 x10^3uL (1.8-7.7) Lymphocytes # (Auto) 3.2 x10^3/uL (1.0-4.8) Monocytes # (Auto) 0.8 x10^3/uL (0.0-1.1) Eosinophils # (Auto) 0.0 x10^3/uL (0.0-0.7) Basophils # (Auto) 0.1 x10^3/uL (0.0-0.2) Sodium Level 144 mmol/L (136-145) Potassium Level 3.5 mmol/L (3.5-5.1) Chloride Level 109 mmol/L (98-107) Carbon Dioxide Level 24 mmol/L (21-32) Anion Gap 11 (6-14) Blood Urea Nitrogen 12 mg/dL (7-20) Creatinine 1.0 mg/dL (0.6-1.0) Estimated GFR (Cockcroft-Gault) 66.7 Glucose Level 107 mg/dL (70-99) Calcium Level 9.7 mg/dL (8.5-10.1) Micro Microbiology 03/29/19 Blood Culture - Preliminary, Resulted NO GROWTH AFTER 1 DAY Objective Assessment Out of hospital arrest - S/p Cardiac cath 03/29 - Three-vessel moderate coronary artery disease in the larger segments of the patient's vessels and Diffuse small vessel distal disease. Fever ? sec to hyperthermia/Cardiac arrest - ? reactive. From the notes she did not appear ill prior to going to the [facility]. Nml Procalcitonin/WBC -overall improving acute Encephalopathy Lymphocytosis - better Acute Resp failure - Intubated - now extubated NANETTE -improved Plan Plan of Care Cont Zosyn for now and monitor F/u labs/cults D/w nursing and family ANDIE DOE MD Mar 31, 2019 06:32
--- NOTE | 2019-03-31 08:03 | RAD ---
Portable chest, 03/31/2019: HISTORY: Respiratory failure Comparison is made to a study from 03/30/2019. The ET tube and NG tube have been removed. The heart is enlarged and unchanged. The pulmonary vascularity is normal. No pulmonary infiltrate is seen. There is no evidence of pleural fluid. IMPRESSION: 1. Mild cardiomegaly. 2. No acute cardiopulmonary abnormality is detected. Electronically signed by: James Forbes MD (03/31/2019 8:00 AM) [facility]
[2019-03-31] MEDS: DOCUSATE SODIUM 100 MG CAPSULE. PO SCH (09:00)
[2019-03-31] MEDS ORDERED: amLODIPine BESYLATE 10 MG TABLET PO SCH (09:00)
[2019-03-31] MEDS ORDERED: ISOSORBIDE MONONITRATE ER 30 MG TAB.ER.24H PO SCH (09:00)
[2019-03-31] MEDS ORDERED: FAMOTIDINE 20 MG TABLET. PO SCH (09:00)
[2019-03-31] MEDS ORDERED: ASPIRIN ENTERIC COATED 81 MG TABLET.DR. PO SCH (09:00)
--- NOTE | 2019-03-31 09:23 | PDOC ---
PULMONARY PROGRESS NOTES Subjective EXTUBATED YESTERDAY DOING WELL NOT MORE SOA Vitals Vital Signs Date Time Temp Pulse Resp B/P (MAP) Pulse Ox O2 Delivery O2 Flow Rate FiO2 03/31/19 09:00 59 20 138/78 (98) 100 Nasal Cannula 2.0 03/31/19 08:00 98.7 98.7 ROS: No Nausea, No Chest Pain, No Abdominal Pain, No Increase Cough General: Alert Lungs: Crackles Cardiovascular: S1, S2 Abdomen: Soft Neuro Exam: Alert Extremities: No Edema Skin: Warm Labs Laboratory Tests Test 03/29/19 14:36 03/29/19 14:45 03/29/19 15:09 03/29/19 15:10 White Blood Count 7.1 x10^3/uL (4.0-11.0) Red Blood Count 4.78 x10^6/uL (3.50-5.40) Hemoglobin 14.1 g/dL (12.0-15.5) Hematocrit 42.2 % (36.0-47.0) Mean Corpuscular Volume 88 fL (79-100) Mean Corpuscular Hemoglobin 30 pg (25-35) Mean Corpuscular Hemoglobin Concent 33 g/dL (31-37) Red Cell Distribution Width 14.1 % (11.5-14.5) Platelet Count 248 x10^3/uL (140-400) Neutrophils (%) (Auto) 27 % (31-73) Lymphocytes (%) (Auto) 61 % (24-48) Monocytes (%) (Auto) 10 % (0-9) Eosinophils (%) (Auto) 1 % (0-3) Basophils (%) (Auto) 1 % (0-3) Neutrophils # (Auto) 1.9 x10^3uL (1.8-7.7) Lymphocytes # (Auto) 4.3 x10^3/uL (1.0-4.8) Monocytes # (Auto) 0.7 x10^3/uL (0.0-1.1) Eosinophils # (Auto) 0.1 x10^3/uL (0.0-0.7) Basophils # (Auto) 0.1 x10^3/uL (0.0-0.2) Prothrombin Time 20.1 SEC (11.7-14.0) Prothromb Time International Ratio 1.7 (0.8-1.1) Activated Partial Thromboplast Time 29 SEC (24-38) Sodium Level 140 mmol/L (136-145) Potassium Level 3.9 mmol/L (3.5-5.1) Chloride Level 104 mmol/L (98-107) Carbon Dioxide Level 18 mmol/L (21-32) Anion Gap 18 (6-14) 17 mmol/L (6-14) Blood Urea Nitrogen 18 mg/dL (7-20) Creatinine 1.8 mg/dL (0.6-1.0) Estimated GFR (Cockcroft-Gault) 33.9 BUN/Creatinine Ratio 10 (6-20) Glucose Level 210 mg/dL (70-99) 201 mg/dL (70-99) Lactic Acid Level 4.6 mmol/L (0.4-2.0) Calcium Level 11.1 mg/dL (8.5-10.1) Magnesium Level 1.8 mg/dL (1.8-2.4) Total Bilirubin 0.3 mg/dL (0.2-1.0) Aspartate Amino Transf (AST/SGOT) 31 U/L (15-37) Alanine Aminotransferase (ALT/SGPT) 40 U/L (14-59) Alkaline Phosphatase 82 U/L (46-116) Creatine Kinase 518 U/L (26-192) Troponin I Quantitative 0.046 ng/mL (0.000-0.055) Total Protein 8.8 g/dL (6.4-8.2) Albumin 4.3 g/dL (3.4-5.0) Albumin/Globulin Ratio 1.0 (1.0-1.7) Lipase 260 U/L (73-393) Vitamin B12 Level 657 pg/mL (247-911) Procalcitonin < 0.10 ng/mL (0.00-0.10) Thyroid Stimulating Hormone (TSH) 7.165 uIU/mL (0.358-3.74) Treponema pallidum Antibody Nonreactive (Nonreactive) Urine Collection Type Unknown Urine Color Yellow Urine Clarity Cloudy Urine pH 6.0 Urine Specific [place] 1.025 Urine Protein Negative mg/dL (NEG-TRACE) Urine Glucose (UA) Negative mg/dL (NEG) Urine Ketones (Stick) Negative mg/dL (NEG) Urine Blood Negative (NEG) Urine Nitrite Negative (NEG) Urine Bilirubin Negative (NEG) Urine Urobilinogen Dipstick 1.0 mg/dL (0.2 mg/dL) Urine Leukocyte Esterase Negative (NEG) Urine RBC 0 /HPF (0-2) Urine WBC Occ /HPF (0-4) Urine Bacteria Few /HPF (0-FEW) Bedside Hemoglobin 14.3 g/dL (12-15) Bedside Hematocrit 42 % (36-40) Bedside Sodium 142 mmol/L (135-145) Bedside Potassium 3.9 mmol/L (3.5-5.0) Bedside Chloride 111 mmol/L (98-110) Bedside Total CO2 18 mmol/L (23-32) Bedside Blood Urea Nitrogen 18 mg/dL (8-26) Bedside Creatinine 1.5 mg/dL (0.5-1.4) Bedside Ionized Calcium (Rodney) 1.47 mmol/L (1.13-1.32) Bedside Troponin I 0.04 ng/ml (<0.08) Test 03/29/19 15:30 03/29/19 18:50 03/29/19 19:06 03/29/19 20:42 O2 Saturation 96 % (92-99) Arterial Blood pH 7.34 (7.35-7.45) Arterial Blood pH (Temp corrected) 7.32 Arterial Blood pCO2 at Patient Temp 33 mmHg (35-46) Arterial Blood pCO2 (Temp correct) 35 mmHg Arterial Blood pO2 at Patient Temp 92 mmHg (65-108) Arterial Blood pO2 (Temp corrected) 100 mmHg Arterial Blood HCO3 17 mmol/L (21-28) Arterial Blood Base Excess -8 mmol/L (-3-3) Oxyhemoglobin 94.9 % Methemoglobin 0.3 % (0.0-1.9) Carbon Monoxide, Quantitative 0.3 % (0.0-1.9) FiO2 40 Lactic Acid Level 2.2 mmol/L (0.4-2.0) Urine Opiates Screen Pos (NEG) Urine Methadone Screen Neg (NEG) Urine Barbiturates Neg (NEG) Urine Phencyclidine Screen Neg (NEG) Urine Amphetamine/Methamphetamine Neg (NEG) Urine Benzodiazepines Screen Neg (NEG) Urine Cocaine Screen Neg (NEG) Urine Cannabinoids Screen Neg (NEG) Urine Ethyl Alcohol Neg (NEG) Ammonia 12 mcmol/L (11-34) Test 03/30/19 07:25 03/30/19 08:00 03/31/19 04:00 Triglycerides Level 238 mg/dL (0-150) Cholesterol Level 148 mg/dL (0-200) LDL Cholesterol, Calculated 62 mg/dL (0-100) VLDL Cholesterol, Calculated 48 mg/dL (0-40) Non-HDL Cholesterol Calculated 110 mg/dL (0-129) HDL Cholesterol 38 mg/dL (40-60) Cholesterol/HDL Ratio 3.9 O2 Saturation 96 % (92-99) Arterial Blood pH 7.50 (7.35-7.45) Arterial Blood pCO2 at Patient Temp 27 mmHg (35-46) Arterial Blood pO2 at Patient Temp 85 mmHg (65-108) Arterial Blood HCO3 21 mmol/L (21-28) Arterial Blood Base Excess -1 mmol/L (-3-3) FiO2 40 White Blood Count 8.1 x10^3/uL (4.0-11.0) Red Blood Count 4.44 x10^6/uL (3.50-5.40) Hemoglobin 13.2 g/dL (12.0-15.5) Hematocrit 39.4 % (36.0-47.0) Mean Corpuscular Volume 89 fL (79-100) Mean Corpuscular Hemoglobin 30 pg (25-35) Mean Corpuscular Hemoglobin Concent 33 g/dL (31-37) Red Cell Distribution Width 14.7 % (11.5-14.5) Platelet Count 177 x10^3/uL (140-400) Neutrophils (%) (Auto) 50 % (31-73) Lymphocytes (%) (Auto) 39 % (24-48) Monocytes (%) (Auto) 10 % (0-9) Eosinophils (%) (Auto) 0 % (0-3) Basophils (%) (Auto) 1 % (0-3) Neutrophils # (Auto) 4.0 x10^3uL (1.8-7.7) Lymphocytes # (Auto) 3.2 x10^3/uL (1.0-4.8) Monocytes # (Auto) 0.8 x10^3/uL (0.0-1.1) Eosinophils # (Auto) 0.0 x10^3/uL (0.0-0.7) Basophils # (Auto) 0.1 x10^3/uL (0.0-0.2) Sodium Level 144 mmol/L (136-145) Potassium Level 3.5 mmol/L (3.5-5.1) Chloride Level 109 mmol/L (98-107) Carbon Dioxide Level 24 mmol/L (21-32) Anion Gap 11 (6-14) Blood Urea Nitrogen 12 mg/dL (7-20) Creatinine 1.0 mg/dL (0.6-1.0) Estimated GFR (Cockcroft-Gault) 66.7 Glucose Level 107 mg/dL (70-99) Calcium Level 9.7 mg/dL (8.5-10.1) Laboratory Tests Test 03/31/19 04:00 White Blood Count 8.1 x10^3/uL (4.0-11.0) Red Blood Count 4.44 x10^6/uL (3.50-5.40) Hemoglobin 13.2 g/dL (12.0-15.5) Hematocrit 39.4 % (36.0-47.0) Mean Corpuscular Volume 89 fL (79-100) Mean Corpuscular Hemoglobin 30 pg (25-35) Mean Corpuscular Hemoglobin Concent 33 g/dL (31-37) Red Cell Distribution Width 14.7 % (11.5-14.5) Platelet Count 177 x10^3/uL (140-400) Neutrophils (%) (Auto) 50 % (31-73) Lymphocytes (%) (Auto) 39 % (24-48) Monocytes (%) (Auto) 10 % (0-9) Eosinophils (%) (Auto) 0 % (0-3) Basophils (%) (Auto) 1 % (0-3) Neutrophils # (Auto) 4.0 x10^3uL (1.8-7.7) Lymphocytes # (Auto) 3.2 x10^3/uL (1.0-4.8) Monocytes # (Auto) 0.8 x10^3/uL (0.0-1.1) Eosinophils # (Auto) 0.0 x10^3/uL (0.0-0.7) Basophils # (Auto) 0.1 x10^3/uL (0.0-0.2) Sodium Level 144 mmol/L (136-145) Potassium Level 3.5 mmol/L (3.5-5.1) Chloride Level 109 mmol/L (98-107) Carbon Dioxide Level 24 mmol/L (21-32) Anion Gap 11 (6-14) Blood Urea Nitrogen 12 mg/dL (7-20) Creatinine 1.0 mg/dL (0.6-1.0) Estimated GFR (Cockcroft-Gault) 66.7 Glucose Level 107 mg/dL (70-99) Calcium Level 9.7 mg/dL (8.5-10.1) Medications Active Scripts Medications Dose Route/Sig Max Daily Dose Days Date Category Prednisone 20 Mg Tablet 1 Tab PO BID 10 01/15/18 Rx Prednisone 20 Mg Tablet 1 Tab PO DAILY 09/01/17 Rx Cyclobenzaprine Hcl 10 Mg Tablet 10 Mg PO TID 09/01/17 Rx [place] 5-325 Tablet (Acetaminophen/Hydrocodone Bitart) 1 Each Tablet 1-2 Tab PO Q4-6HRS PRN 08/02/16 Rx Medrol (Methylprednisolone) 4 Mg Tab.ds.pk 1 Pkg PO UD 08/02/16 Rx Sulf-Pred 10-0.23% Eye Drops (Sulfacetamide/Prednisolone Sp) 5 Ml Drops 5 Ml OP 10/26/13 Reported Stool Softener (Docusate Sodium) 100 Mg Capsule 100 Mg PO 10/26/13 Reported Simvastatin 20 Mg Tablet 20 Mg PO 10/26/13 Reported Omeprazole 20 Mg Capsule. 20 Mg PO 10/26/13 Reported Levothyroxine Sodium 150 Mcg Tablet 150 Mcg PO 10/26/13 Reported Donepezil Hcl 5 Mg Tablet 5 Mg PO 10/26/13 Reported Aspir-Low (Aspirin) 81 Mg Tablet.dr 81 Mg PO 10/26/13 Reported Amlodipine Besylate 10 Mg Tablet 10 Mg PO 10/26/13 Reported Metoprolol Succinate ( Xl ) (Metoprolol Succinate) 25 Mg Tab.er.24h 25 Mg PO 10/26/13 Reported Hydrocodone-Apap 7.5-325 (Hydrocodone Bit/Acetaminophen) 1 Each Tablet 1 Each PO 10/26/13 Reported Warfarin Sodium 5 Mg Tablet 5 Mg PO 10/26/13 Reported Warfarin Sodium 2.5 Mg Tablet 2.5 Mg PO 10/26/13 Reported Losartan Potassium 100 Mg Tablet 100 Mg PO 10/26/13 Reported Enoxaparin Sodium 80 Mg/0.8 Ml Disp.syrin 90 Mg SQ 10/26/13 Reported Impression . IMPRESSION: 1. Acute respiratory failure secondary to [id number] near arrest. 2. Coronary artery disease status post emergent coronary catheterization revealed no significant disease. 3. Fever. 4. Acute encephalopathy. 5. Lymphocytosis. 6. Acute kidney injury. Plan . OK TO TRANSFER FROM MY STANDPOINT WILL DEFER TO ID FOR ANTIBX JAZMINE DÍAZ MD Mar 31, 2019 09:23
--- NOTE | 2019-03-31 11:06 | PDOC ---
PROGRESS NOTES Chief Complaint Chief Complaint Acute Encephalopathy Acute Hypoxic Resp Failure due to AMS Suspected syncope and collapse Hyperthermia Chronic LBBB Chronic anticoagulation HTN NANETTE HTN HLD Hypothyroidism, TSH 7.1 mild CPK elevation History of Present Illness History of Present Illness 68 yo female hx of HTN, hypothyroidism, HLD, GERD, Afib on coumadin who was at [facility] in the steam room and was found unresponsive by the workers. per report she was alone and was in the steam room for 1 hr. EMS was called and patient had a pulse but with agonal respirations. initial temp was 103 but she was in the steam room. GCS was reported at 4 initially. EMS read EKG as STEMI. patient transported to ED for evaluation. patient was placed on NRB in ED and intubated upon arrival. Per family she was in her usual state this AM. no fever, seats, chest pain, sob. In the ED EKG read as LBBB. Cardiology immediately took patient to the [facility] maintenance lab[facility] which showed Three-vessel moderate coronary artery disease in the larger segments of the patient's vessels and Diffuse small vessel distal disease. no stents placed. Extubated on 03/30/19 without event. Feeling significantly better today, notes she has ARACELY on CPAP and feels she had heat stroke. She wishes to eat and have lee out. Has a little superficial abd discomfort CXR 1. Mild cardiomegaly. 2. No acute cardiopulmonary abnormality is detected. Plan: Will change to oral antibiotics D/c lee, downtitrate O2 [employer] bedside ok to eat May be able to d/c later today Vitals Vitals Vital Signs Date Time Temp Pulse Resp B/P (MAP) Pulse Ox O2 Delivery O2 Flow Rate FiO2 03/31/19 10:00 62 18 128/76 (93) 99 Nasal Cannula 2.0 03/31/19 08:00 98.7 98.7 Physical Exam Physical Exam IVs, peripheral IV is clean. General: Alert, Oriented X3, Cooperative, Other Heart: Regular rate (SR LBBB) Lungs: Clear Abdomen: Normal bowel sounds, Soft Extremities: No clubbing, No cyanosis Skin: No rashes, No breakdown Labs LABS Laboratory Tests Test 03/31/19 04:00 White Blood Count 8.1 x10^3/uL (4.0-11.0) Red Blood Count 4.44 x10^6/uL (3.50-5.40) Hemoglobin 13.2 g/dL (12.0-15.5) Hematocrit 39.4 % (36.0-47.0) Mean Corpuscular Volume 89 fL (79-100) Mean Corpuscular Hemoglobin 30 pg (25-35) Mean Corpuscular Hemoglobin Concent 33 g/dL (31-37) Red Cell Distribution Width 14.7 % (11.5-14.5) Platelet Count 177 x10^3/uL (140-400) Neutrophils (%) (Auto) 50 % (31-73) Lymphocytes (%) (Auto) 39 % (24-48) Monocytes (%) (Auto) 10 % (0-9) Eosinophils (%) (Auto) 0 % (0-3) Basophils (%) (Auto) 1 % (0-3) Neutrophils # (Auto) 4.0 x10^3uL (1.8-7.7) Lymphocytes # (Auto) 3.2 x10^3/uL (1.0-4.8) Monocytes # (Auto) 0.8 x10^3/uL (0.0-1.1) Eosinophils # (Auto) 0.0 x10^3/uL (0.0-0.7) Basophils # (Auto) 0.1 x10^3/uL (0.0-0.2) Sodium Level 144 mmol/L (136-145) Potassium Level 3.5 mmol/L (3.5-5.1) Chloride Level 109 mmol/L (98-107) Carbon Dioxide Level 24 mmol/L (21-32) Anion Gap 11 (6-14) Blood Urea Nitrogen 12 mg/dL (7-20) Creatinine 1.0 mg/dL (0.6-1.0) Estimated GFR (Cockcroft-Gault) 66.7 Glucose Level 107 mg/dL (70-99) Calcium Level 9.7 mg/dL (8.5-10.1) Assessment and Plan Assessmemt and Plan Problems Medical Problems: (1) Altered mental status Status: Acute (2) Hyperthermia Status: Acute (3) Respiratory failure Status: Acute Comment Review of Relevant I have reviewed the following items harry (where applicable) has been applied. Labs Laboratory Tests Test 03/29/19 14:36 03/29/19 14:45 03/29/19 15:09 03/29/19 15:10 White Blood Count 7.1 x10^3/uL (4.0-11.0) Red Blood Count 4.78 x10^6/uL (3.50-5.40) Hemoglobin 14.1 g/dL (12.0-15.5) Hematocrit 42.2 % (36.0-47.0) Mean Corpuscular Volume 88 fL (79-100) Mean Corpuscular Hemoglobin 30 pg (25-35) Mean Corpuscular Hemoglobin Concent 33 g/dL (31-37) Red Cell Distribution Width 14.1 % (11.5-14.5) Platelet Count 248 x10^3/uL (140-400) Neutrophils (%) (Auto) 27 % (31-73) Lymphocytes (%) (Auto) 61 % (24-48) Monocytes (%) (Auto) 10 % (0-9) Eosinophils (%) (Auto) 1 % (0-3) Basophils (%) (Auto) 1 % (0-3) Neutrophils # (Auto) 1.9 x10^3uL (1.8-7.7) Lymphocytes # (Auto) 4.3 x10^3/uL (1.0-4.8) Monocytes # (Auto) 0.7 x10^3/uL (0.0-1.1) Eosinophils # (Auto) 0.1 x10^3/uL (0.0-0.7) Basophils # (Auto) 0.1 x10^3/uL (0.0-0.2) Prothrombin Time 20.1 SEC (11.7-14.0) Prothromb Time International Ratio 1.7 (0.8-1.1) Activated Partial Thromboplast Time 29 SEC (24-38) Sodium Level 140 mmol/L (136-145) Potassium Level 3.9 mmol/L (3.5-5.1) Chloride Level 104 mmol/L (98-107) Carbon Dioxide Level 18 mmol/L (21-32) Anion Gap 18 (6-14) 17 mmol/L (6-14) Blood Urea Nitrogen 18 mg/dL (7-20) Creatinine 1.8 mg/dL (0.6-1.0) Estimated GFR (Cockcroft-Gault) 33.9 BUN/Creatinine Ratio 10 (6-20) Glucose Level 210 mg/dL (70-99) 201 mg/dL (70-99) Lactic Acid Level 4.6 mmol/L (0.4-2.0) Calcium Level 11.1 mg/dL (8.5-10.1) Magnesium Level 1.8 mg/dL (1.8-2.4) Total Bilirubin 0.3 mg/dL (0.2-1.0) Aspartate Amino Transf (AST/SGOT) 31 U/L (15-37) Alanine Aminotransferase (ALT/SGPT) 40 U/L (14-59) Alkaline Phosphatase 82 U/L (46-116) Creatine Kinase 518 U/L (26-192) Troponin I Quantitative 0.046 ng/mL (0.000-0.055) Total Protein 8.8 g/dL (6.4-8.2) Albumin 4.3 g/dL (3.4-5.0) Albumin/Globulin Ratio 1.0 (1.0-1.7) Lipase 260 U/L (73-393) Vitamin B12 Level 657 pg/mL (247-911) Procalcitonin < 0.10 ng/mL (0.00-0.10) Thyroid Stimulating Hormone (TSH) 7.165 uIU/mL (0.358-3.74) Treponema pallidum Antibody Nonreactive (Nonreactive) Urine Collection Type Unknown Urine Color Yellow Urine Clarity Cloudy Urine pH 6.0 Urine Specific Rock 1.025 Urine Protein Negative mg/dL (NEG-TRACE) Urine Glucose (UA) Negative mg/dL (NEG) Urine Ketones (Stick) Negative mg/dL (NEG) Urine Blood Negative (NEG) Urine Nitrite Negative (NEG) Urine Bilirubin Negative (NEG) Urine Urobilinogen Dipstick 1.0 mg/dL (0.2 mg/dL) Urine Leukocyte Esterase Negative (NEG) Urine RBC 0 /HPF (0-2) Urine WBC Occ /HPF (0-4) Urine Bacteria Few /HPF (0-FEW) Bedside Hemoglobin 14.3 g/dL (12-15) Bedside Hematocrit 42 % (36-40) Bedside Sodium 142 mmol/L (135-145) Bedside Potassium 3.9 mmol/L (3.5-5.0) Bedside Chloride 111 mmol/L (98-110) Bedside Total CO2 18 mmol/L (23-32) Bedside Blood Urea Nitrogen 18 mg/dL (8-26) Bedside Creatinine 1.5 mg/dL (0.5-1.4) Bedside Ionized Calcium (Rodney) 1.47 mmol/L (1.13-1.32) Bedside Troponin I 0.04 ng/ml (<0.08) Test 03/29/19 15:30 03/29/19 18:50 03/29/19 19:06 03/29/19 20:42 O2 Saturation 96 % (92-99) Arterial Blood pH 7.34 (7.35-7.45) Arterial Blood pH (Temp corrected) 7.32 Arterial Blood pCO2 at Patient Temp 33 mmHg (35-46) Arterial Blood pCO2 (Temp correct) 35 mmHg Arterial Blood pO2 at Patient Temp 92 mmHg (65-108) Arterial Blood pO2 (Temp corrected) 100 mmHg Arterial Blood HCO3 17 mmol/L (21-28) Arterial Blood Base Excess -8 mmol/L (-3-3) Oxyhemoglobin 94.9 % Methemoglobin 0.3 % (0.0-1.9) Carbon Monoxide, Quantitative 0.3 % (0.0-1.9) FiO2 40 Lactic Acid Level 2.2 mmol/L (0.4-2.0) Urine Opiates Screen Pos (NEG) Urine Methadone Screen Neg (NEG) Urine Barbiturates Neg (NEG) Urine Phencyclidine Screen Neg (NEG) Urine Amphetamine/Methamphetamine Neg (NEG) Urine Benzodiazepines Screen Neg (NEG) Urine Cocaine Screen Neg (NEG) Urine Cannabinoids Screen Neg (NEG) Urine Ethyl Alcohol Neg (NEG) Ammonia 12 mcmol/L (11-34) Test 03/30/19 07:25 03/30/19 08:00 03/31/19 04:00 Triglycerides Level 238 mg/dL (0-150) Cholesterol Level 148 mg/dL (0-200) LDL Cholesterol, Calculated 62 mg/dL (0-100) VLDL Cholesterol, Calculated 48 mg/dL (0-40) Non-HDL Cholesterol Calculated 110 mg/dL (0-129) HDL Cholesterol 38 mg/dL (40-60) Cholesterol/HDL Ratio 3.9 O2 Saturation 96 % (92-99) Arterial Blood pH 7.50 (7.35-7.45) Arterial Blood pCO2 at Patient Temp 27 mmHg (35-46) Arterial Blood pO2 at Patient Temp 85 mmHg (65-108) Arterial Blood HCO3 21 mmol/L (21-28) Arterial Blood Base Excess -1 mmol/L (-3-3) FiO2 40 White Blood Count 8.1 x10^3/uL (4.0-11.0) Red Blood Count 4.44 x10^6/uL (3.50-5.40) Hemoglobin 13.2 g/dL (12.0-15.5) Hematocrit 39.4 % (36.0-47.0) Mean Corpuscular Volume 89 fL (79-100) Mean Corpuscular Hemoglobin 30 pg (25-35) Mean Corpuscular Hemoglobin Concent 33 g/dL (31-37) Red Cell Distribution Width 14.7 % (11.5-14.5) Platelet Count 177 x10^3/uL (140-400) Neutrophils (%) (Auto) 50 % (31-73) Lymphocytes (%) (Auto) 39 % (24-48) Monocytes (%) (Auto) 10 % (0-9) Eosinophils (%) (Auto) 0 % (0-3) Basophils (%) (Auto) 1 % (0-3) Neutrophils # (Auto) 4.0 x10^3uL (1.8-7.7) Lymphocytes # (Auto) 3.2 x10^3/uL (1.0-4.8) Monocytes # (Auto) 0.8 x10^3/uL (0.0-1.1) Eosinophils # (Auto) 0.0 x10^3/uL (0.0-0.7) Basophils # (Auto) 0.1 x10^3/uL (0.0-0.2) Sodium Level 144 mmol/L (136-145) Potassium Level 3.5 mmol/L (3.5-5.1) Chloride Level 109 mmol/L (98-107) Carbon Dioxide Level 24 mmol/L (21-32) Anion Gap 11 (6-14) Blood Urea Nitrogen 12 mg/dL (7-20) Creatinine 1.0 mg/dL (0.6-1.0) Estimated GFR (Cockcroft-Gault) 66.7 Glucose Level 107 mg/dL (70-99) Calcium Level 9.7 mg/dL (8.5-10.1) Laboratory Tests Test 03/31/19 04:00 White Blood Count 8.1 x10^3/uL (4.0-11.0) Red Blood Count 4.44 x10^6/uL (3.50-5.40) Hemoglobin 13.2 g/dL (12.0-15.5) Hematocrit 39.4 % (36.0-47.0) Mean Corpuscular Volume 89 fL (79-100) Mean Corpuscular Hemoglobin 30 pg (25-35) Mean Corpuscular Hemoglobin Concent 33 g/dL (31-37) Red Cell Distribution Width 14.7 % (11.5-14.5) Platelet Count 177 x10^3/uL (140-400) Neutrophils (%) (Auto) 50 % (31-73) Lymphocytes (%) (Auto) 39 % (24-48) Monocytes (%) (Auto) 10 % (0-9) Eosinophils (%) (Auto) 0 % (0-3) Basophils (%) (Auto) 1 % (0-3) Neutrophils # (Auto) 4.0 x10^3uL (1.8-7.7) Lymphocytes # (Auto) 3.2 x10^3/uL (1.0-4.8) Monocytes # (Auto) 0.8 x10^3/uL (0.0-1.1) Eosinophils # (Auto) 0.0 x10^3/uL (0.0-0.7) Basophils # (Auto) 0.1 x10^3/uL (0.0-0.2) Sodium Level 144 mmol/L (136-145) Potassium Level 3.5 mmol/L (3.5-5.1) Chloride Level 109 mmol/L (98-107) Carbon Dioxide Level 24 mmol/L (21-32) Anion Gap 11 (6-14) Blood Urea Nitrogen 12 mg/dL (7-20) Creatinine 1.0 mg/dL (0.6-1.0) Estimated GFR (Cockcroft-Gault) 66.7 Glucose Level 107 mg/dL (70-99) Calcium Level 9.7 mg/dL (8.5-10.1) Microbiology 03/29/19 Blood Culture - Preliminary, Resulted NO GROWTH AFTER 1 DAY Medications Current Medications Heparin Sodium (Porcine) (Heparin Sodium) 10,000 unit STK-MED ONCE .ROUTE ; Start 03/29/19 at 14:45; Stop 03/29/19 at 14:46; Status DC Propofol 50 ml @ As Directed STK-MED ONCE IV ; Start 03/29/19 at 14:45; Stop 03/29/19 at 14:46; Status DC Sodium Chloride 1,000 ml @ 1,860 mls/hr Q33M IV Last administered on 03/29/19at 15:00; Start 03/29/19 at 15:00; Stop 03/29/19 at 16:00; Status DC Piperacillin Sod/ Tazobactam Sod 4.5 gm/Sodium Chloride 100 ml @ 200 mls/hr 1X ONCE IV Last administered on 03/29/19at 15:05; Start 03/29/19 at 15:30; Stop 03/29/19 at 15:59; Status DC Propofol 100 ml @ 0 mls/hr CONT PRN IV SEE PROTOCOL Last administered on 03/29/19at 20:59; Start 03/29/19 at 15:00; Stop 03/30/19 at 00:08; Status DC Acetaminophen (Tylenol Supp) 650 mg 1X ONCE KS ; Start 03/29/19 at 15:00; Stop 03/29/19 at 15:01; Status DC Heparin Sodium (Porcine) (Heparin Sodium) 10,000 unit STK-MED ONCE .ROUTE ; Start 03/29/19 at 16:05; Stop 03/29/19 at 16:06; Status DC Verapamil HCl (Verapamil) 5 mg STK-MED ONCE .ROUTE ; Start 03/29/19 at 16:05; Stop 03/29/19 at 16:06; Status DC Nitroglycerin (Nitroglycerin) 200 mcg STK-MED ONCE .ROUTE ; Start 03/29/19 at 16:05; Stop 03/29/19 at 16:06; Status DC Etomidate (Amidate) 20 mg STK-MED ONCE IV ; Start 03/29/19 at 16:08; Stop 03/29/19 at 16:09; Status DC Succinylcholine Chloride (Anectine) 200 mg STK-MED ONCE .ROUTE ; Start 03/29/19 at 16:08; Stop 03/29/19 at 16:09; Status DC Nitroglycerin (Nitroglycerin) 200 mcg 1X ONCE IART Last administered on 03/29/19at 16:15; Start 03/29/19 at 16:15; Stop 03/29/19 at 16:19; Status DC Verapamil HCl (Verapamil) 2.5 mg 1X ONCE IART Last administered on 03/29/19at 16:15; Start 03/29/19 at 16:15; Stop 03/29/19 at 16:19; Status DC Heparin Sodium (Porcine) (Heparin Sodium) 2,500 unit 1X ONCE IART Last administered on 03/29/19at 16:15; Start 03/29/19 at 16:15; Stop 03/29/19 at 16:19; Status DC Heparin Sodium/ Sodium Chloride (HEPARIN for ARTERIAL LINE FLUSH) 1,000 unit 1X ONCE IART Last administered on 03/29/19at 16:15; Start 03/29/19 at 16:15; Stop 03/29/19 at 16:19; Status DC Heparin Sodium/ Sodium Chloride (HEPARIN for ARTERIAL LINE FLUSH) 1,000 unit 1X ONCE IART Last administered on 03/29/19at 16:15; Start 03/29/19 at 16:15; Stop 03/29/19 at 16:19; Status DC Iodixanol (Visipaque 320) 100 ml 1X ONCE IART Last administered on 03/29/19at 16:15; Start 03/29/19 at 16:15; Stop 03/29/19 at 16:19; Status DC Lidocaine HCl (Lidocaine 1% 20ml Vial) 20 ml 1X ONCE INJ Last administered on 03/29/19at 16:15; Start 03/29/19 at 16:15; Stop 03/29/19 at 16:19; Status DC Info (CONTRAST GIVEN -- Rx MONITORING) 1 each PRN DAILY PRN MC SEE COMMENTS; Start 03/29/19 at 16:30; Stop 03/31/19 at 16:29 Sodium Chloride 1,000 ml @ 125 mls/hr 1X ONCE IV Last administered on 03/29/19at 19:24; Start 03/29/19 at 16:45; Stop 03/30/19 at 00:44; Status DC Sodium Chloride (Normal Saline Flush) 3 ml QSHIFT PRN IV AFTER MEDS AND BLOOD DRAWS; Start 03/29/19 at 17:45 Nitroglycerin (Nitrostat) 0.4 mg PRN Q5MIN PRN SL CHEST PAIN; Start 03/29/19 at 17:45 Levothyroxine Sodium 100 mcg/ Sodium Chloride 5 ml @ 100 mls/hr Q72H IVP Last administered on 03/29/19at 21:07; Start 03/29/19 at 21:00 Propofol 100 ml @ 0 mls/hr CONT PRN IV SEE I/O RECORD Last administered on 03/30/19at 08:07; Start 03/30/19 at 00:15 Piperacillin Sod/ Tazobactam Sod 3.375 gm/Sodium Chloride 50 ml @ 100 mls/hr Q6 HRS IV Last administered on 03/31/19at 06:39; Start 03/30/19 at 07:15 Metoprolol Tartrate (Lopressor Vial) 5 mg Q6HRS IVP Last administered on 03/31/19at 01:59; Start 03/30/19 at 18:00 Amlodipine Besylate (Norvasc) 10 mg DAILY PO ; Start 03/31/19 at 09:00 Aspirin (Ecotrin) 81 mg DAILY PO ; Start 03/31/19 at 09:00 Atorvastatin Calcium (Lipitor) 40 mg QHS PO ; Start 03/30/19 at 21:00 Docusate Sodium (Colace) 100 mg BID PO ; Start 03/30/19 at 21:00 Famotidine (Pepcid) 20 mg DAILY PO ; Start 03/31/19 at 09:00 Isosorbide Mononitrate (Imdur) 120 mg DAILY PO ; Start 03/31/19 at 09:00 Levothyroxine Sodium (Synthroid) 150 mcg DAILY06 PO ; Start 03/31/19 at 06:00 Active Scripts Active Reported Atorvastatin Calcium 40 Mg Tablet 1 Tab PO DAILY Isosorbide Mononitrate Er (Isosorbide Mononitrate) 60 Mg Tab.er.24h 2 Tab PO DAILY Flonase Allergy Relief (Fluticasone Propionate) 9.9 Ml Herscher.susp 2 Sprays NS DAILY Famotidine 20 Mg Tablet 10 Mg PO DAILY Multivitamins (Multivitamin) 1 Each Tablet 1 Tab PO DAILY Stool Softener (Docusate Sodium) 100 Mg Capsule 100 Mg PO Levothyroxine Sodium 150 Mcg Tablet 150 Mcg PO Donepezil Hcl 5 Mg Tablet 5 Mg PO Aspir-Low (Aspirin) 81 Mg Tablet.dr 81 Mg PO Amlodipine Besylate 10 Mg Tablet 10 Mg PO Warfarin Sodium 5 Mg Tablet 5 Mg PO Warfarin Sodium 2.5 Mg Tablet 2.5 Mg PO Losartan Potassium 100 Mg Tablet 100 Mg PO Vitals/I & O Vital Sign - Last 24 Hours 03/30/19 03/30/19 03/30/19 03/30/19 11:00 11:33 12:00 12:00 Temp 98.6 98.6 Pulse 83 105 Resp 16 22 B/P (MAP) 169/85 (113) 180/90 (120) Pulse Ox 100 100 100 O2 Delivery Ventilator Ventilator Ventilator Mechanical Ventilator 03/30/19 03/30/19 03/30/19 03/30/19 12:30 12:58 13:00 14:00 Pulse 102 81 Resp 20 18 B/P (MAP) 180/78 (112) 128/58 (81) Pulse Ox 100 100 99 99 O2 Delivery Ventilator Ventilator Ventilator Nasal Cannula O2 Flow Rate 2.0 03/30/19 03/30/19 03/30/19 03/30/19 15:00 16:00 16:00 17:00 Temp 99.1 99.1 Pulse 73 73 82 Resp 18 18 18 B/P (MAP) 124/69 (87) 136/87 (103) 136/87 (103) Pulse Ox 100 100 100 O2 Delivery Nasal Cannula Mechanical Ventilator Nasal Cannula Nasal Cannula O2 Flow Rate 2.0 2.0 2.0 03/30/19 03/30/19 03/30/19 03/30/19 18:00 18:23 19:00 20:00 Temp 99.0 99.0 Pulse 64 73 54 64 Resp 18 18 20 B/P (MAP) 170/53 (92) 152/84 171/55 (93) 145/59 (87) Pulse Ox 100 100 100 O2 Delivery Nasal Cannula Nasal Cannula Nasal Cannula O2 Flow Rate 2.0 2.0 2.0 03/30/19 03/30/19 03/30/19 03/30/19 20:00 21:00 22:00 23:00 Pulse 60 58 72 Resp 20 18 18 B/P (MAP) 141/58 (85) 121/87 (98) 131/53 (79) Pulse Ox 100 100 100 O2 Delivery Nasal Cannula Nasal Cannula Nasal Cannula Nasal Cannula O2 Flow Rate 2.0 2.0 2.0 2.0 03/30/19 03/31/19 03/31/19 03/31/19 23:59 00:00 01:00 01:59 Temp 100.0 100.0 Pulse 54 54 83 Resp 18 18 B/P (MAP) 126/52 (76) 143/63 (89) 143/63 Pulse Ox 100 100 O2 Delivery Nasal Cannula Nasal Cannula Nasal Cannula O2 Flow Rate 2.0 2.0 2.0 03/31/19 03/31/19 03/31/19 03/31/19 02:00 03:00 04:00 04:00 Temp 98.7 98.7 Pulse 63 56 54 Resp 16 18 18 B/P (MAP) 154/67 (96) 126/54 (78) 134/68 (90) Pulse Ox 100 100 100 O2 Delivery Nasal Cannula Nasal Cannula Nasal Cannula Nasal Cannula O2 Flow Rate 2.0 2.0 2.0 2.0 03/31/19 03/31/19 03/31/19 03/31/19 05:00 06:00 07:00 08:00 Temp 98.7 98.7 Pulse 50 54 55 55 Resp 18 18 18 18 B/P (MAP) 147/63 (91) 121/50 (73) 120/71 (87) 125/75 (92) Pulse Ox 100 100 100 100 O2 Delivery Nasal Cannula Nasal Cannula Nasal Cannula Nasal Cannula O2 Flow Rate 2.0 2.0 2.0 2.0 03/31/19 03/31/19 03/31/19 08:00 09:00 10:00 Pulse 59 62 Resp 20 18 B/P (MAP) 138/78 (98) 128/76 (93) Pulse Ox 100 99 O2 Delivery Nasal Cannula Nasal Cannula Nasal Cannula O2 Flow Rate 2.0 2.0 2.0 Intake and Output 03/30/19 03/30/19 03/31/19 15:00 23:00 07:00 Intake Total 129 ml 50 ml Output Total 535 ml 350 ml 250 ml Balance -406 ml -350 ml -200 ml LUZ ELENA CARDOSO MD Mar 31, 2019 11:06
[2019-03-31] MEDS ORDERED: METOPROLOL SUCC 24HR ER 25 MG TAB.ER.24H. PO SCH (13:00)
[2019-03-31] MEDS ORDERED: LOSARTAN POTASSIUM 50 MG TABLET. PO SCH (13:00)
--- NOTE | 2019-03-31 13:39 | PDOC ---
CARDIO Progress Notes Date and Time Date of Service 03/31/19 Time of Evaluation 1310 Subjective Subjective: No Chest Pain, No shortness of breath, No Palpitations, Other Vitals Vitals Vital Signs Date Time Temp Pulse Resp B/P (MAP) Pulse Ox O2 Delivery O2 Flow Rate FiO2 03/31/19 13:10 65 123/69 03/31/19 11:00 20 99 Nasal Cannula 3.0 03/31/19 08:00 98.7 98.7 Weight Weight [ ] Input and Output Intake and Output Intake and Output 03/31/19 06:59 Intake Total 179 ml Output Total 1235 ml Balance -1056 ml IV Total 179 ml Output Urine Total 1235 ml Laboratory Labs Laboratory Tests Test 03/31/19 04:00 White Blood Count 8.1 x10^3/uL (4.0-11.0) Red Blood Count 4.44 x10^6/uL (3.50-5.40) Hemoglobin 13.2 g/dL (12.0-15.5) Hematocrit 39.4 % (36.0-47.0) Mean Corpuscular Volume 89 fL (79-100) Mean Corpuscular Hemoglobin 30 pg (25-35) Mean Corpuscular Hemoglobin Concent 33 g/dL (31-37) Red Cell Distribution Width 14.7 % (11.5-14.5) Platelet Count 177 x10^3/uL (140-400) Neutrophils (%) (Auto) 50 % (31-73) Lymphocytes (%) (Auto) 39 % (24-48) Monocytes (%) (Auto) 10 % (0-9) Eosinophils (%) (Auto) 0 % (0-3) Basophils (%) (Auto) 1 % (0-3) Neutrophils # (Auto) 4.0 x10^3uL (1.8-7.7) Lymphocytes # (Auto) 3.2 x10^3/uL (1.0-4.8) Monocytes # (Auto) 0.8 x10^3/uL (0.0-1.1) Eosinophils # (Auto) 0.0 x10^3/uL (0.0-0.7) Basophils # (Auto) 0.1 x10^3/uL (0.0-0.2) Sodium Level 144 mmol/L (136-145) Potassium Level 3.5 mmol/L (3.5-5.1) Chloride Level 109 mmol/L (98-107) Carbon Dioxide Level 24 mmol/L (21-32) Anion Gap 11 (6-14) Blood Urea Nitrogen 12 mg/dL (7-20) Creatinine 1.0 mg/dL (0.6-1.0) Estimated GFR (Cockcroft-Gault) 66.7 Glucose Level 107 mg/dL (70-99) Calcium Level 9.7 mg/dL (8.5-10.1) Microbiology Micro Microbiology 03/29/19 Blood Culture - Preliminary, Resulted NO GROWTH AFTER 1 DAY Physical Exam HEENT: Neck Supple W Full Motion Chest: Symmetric LUNGS: Clear to Auscultation Heart: S1S2, RRR Abdomen: Soft N/T Extremities: No Edema Neurology: alert, oriented, follow commands Assessment Assessment 1. Acute respiratory failure: s/p extubation 03/30. No arrhythmias noted. 2. Fever; Tmax 103. ? Etiology. BC pending. as per ID 3. CAD; Known small vessel disease. Follows with cardiology. Records reviewed; most recent cath with 70-80% distal LAD lesions in small caliber vesse l and 80% stenosis in the mid PLV branch of the RCA, which is also a small caliber vessel. Both being medically management. LHC yesterday consistent with these previous findings. 4. Chronic LBBB: compared to 2016 EKG 5. Metabolic encephalopathy; improved 6. Chronic systolic HF; LVEF 40-45%; clinically compensated 7. NANETTE 8. HTN; controlled 9. HLP; statin 10. Hypothyroidism 11. H/o DVT on warfarin therapy 12. ARACELY Recommendations Secondary prevention; ASA, statin, BB HF optimization; convert metoprolol IV to oral succinate. 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 Borderline ejection fraction (~50%). Normal RV size and function. Mild right atrial enlargement. Mitral annular calcification without significant stenosis or regurgitation. Mild aortic valve stenosis. Estimated Peak Systolic PA Pressure 24 mmHg Regadenoson Stress Test 12/2018 at SUMMARY/OPINION: This study is abnormal secondary to the small sized, mild intensity, predominantly reversible perfusion defect of the apical anterior wall and true LV apex. This is likely corresponding to the patient's known high-grade disease in the very distal portion of the LAD. There were no other significant perfusion abnormalities. There is mildly reduced global LV systolic dysfunction, which is an intermediate risk factor in terms of annual cardiovascular mortality. There are no definitive regional wall motion changes. There was slightly reduced thickening in the apical anterior wall consistent with the aforementioned perfusion abnormality. The pharmacologic stress ECG was nondiagnostic for ischemia. The patient did develop an intermittent atypical left bundle branch block, which has been previously documented for the patient as well. Comparison was made to a prior study which was performed on the [facility] camera on April 09, 2011. The calculated ejection fraction on the prior study was 51% with an end-diastolic volume of 77 mL. The prior study demonstrated a similar reversible perfusion abnormality that was small in size and more moderate in intensity of the LV apex. Comparing the 2 studies qualitatively, there is been no significant interval changes. The distribution of the perfusion abnormality is quite similar. The calculated ejection fractions are also similar. The calculated summed stress score was slightly higher on the prior study, but the difference in imaging technology (ADAC versus D SPECT) should also be taken into account. In aggregate the current study is intermediate risk in regards to predicted annual cardiovascular mortality rate ELOY DILLON APRN Mar 31, 2019 13:39
[2019-03-31] MEDS ORDERED: METO-239 PO (14:28)
--- NOTE | 2019-03-31 14:34 | PDOC3 ---
Discharge Summary Visit Information Date of Admission: Mar 29, 2019 Date of Discharge: Mar 31, 2019 Admitting Diagnosis: Hyperthermia Final Diagnosis Problems Medical Problems: (1) Altered mental status Status: Acute (2) Hyperthermia Status: Acute (3) Respiratory failure Status: Acute Brief Hospital Course Allergies Allergies Coded Allergies Type Severity Reaction Last Updated Verified tolbutamide Allergy Intermediate 08/01/16 Yes Vital Signs Vital Signs Date Time Temp Pulse Resp B/P (MAP) Pulse Ox O2 Delivery O2 Flow Rate FiO2 03/31/19 13:10 65 123/69 03/31/19 11:00 20 99 Nasal Cannula 3.0 03/31/19 08:00 98.7 98.7 Lab Results Laboratory Tests Test 03/29/19 14:36 03/29/19 14:45 03/29/19 15:09 03/29/19 15:10 White Blood Count 7.1 x10^3/uL (4.0-11.0) Red Blood Count 4.78 x10^6/uL (3.50-5.40) Hemoglobin 14.1 g/dL (12.0-15.5) Hematocrit 42.2 % (36.0-47.0) Mean Corpuscular Volume 88 fL (79-100) Mean Corpuscular Hemoglobin 30 pg (25-35) Mean Corpuscular Hemoglobin Concent 33 g/dL (31-37) Red Cell Distribution Width 14.1 % (11.5-14.5) Platelet Count 248 x10^3/uL (140-400) Neutrophils (%) (Auto) 27 % (31-73) Lymphocytes (%) (Auto) 61 % (24-48) Monocytes (%) (Auto) 10 % (0-9) Eosinophils (%) (Auto) 1 % (0-3) Basophils (%) (Auto) 1 % (0-3) Neutrophils # (Auto) 1.9 x10^3uL (1.8-7.7) Lymphocytes # (Auto) 4.3 x10^3/uL (1.0-4.8) Monocytes # (Auto) 0.7 x10^3/uL (0.0-1.1) Eosinophils # (Auto) 0.1 x10^3/uL (0.0-0.7) Basophils # (Auto) 0.1 x10^3/uL (0.0-0.2) Prothrombin Time 20.1 SEC (11.7-14.0) Prothromb Time International Ratio 1.7 (0.8-1.1) Activated Partial Thromboplast Time 29 SEC (24-38) Sodium Level 140 mmol/L (136-145) Potassium Level 3.9 mmol/L (3.5-5.1) Chloride Level 104 mmol/L (98-107) Carbon Dioxide Level 18 mmol/L (21-32) Anion Gap 18 (6-14) 17 mmol/L (6-14) Blood Urea Nitrogen 18 mg/dL (7-20) Creatinine 1.8 mg/dL (0.6-1.0) Estimated GFR (Cockcroft-Gault) 33.9 BUN/Creatinine Ratio 10 (6-20) Glucose Level 210 mg/dL (70-99) 201 mg/dL (70-99) Lactic Acid Level 4.6 mmol/L (0.4-2.0) Calcium Level 11.1 mg/dL (8.5-10.1) Magnesium Level 1.8 mg/dL (1.8-2.4) Total Bilirubin 0.3 mg/dL (0.2-1.0) Aspartate Amino Transf (AST/SGOT) 31 U/L (15-37) Alanine Aminotransferase (ALT/SGPT) 40 U/L (14-59) Alkaline Phosphatase 82 U/L (46-116) Creatine Kinase 518 U/L (26-192) Troponin I Quantitative 0.046 ng/mL (0.000-0.055) Total Protein 8.8 g/dL (6.4-8.2) Albumin 4.3 g/dL (3.4-5.0) Albumin/Globulin Ratio 1.0 (1.0-1.7) Lipase 260 U/L (73-393) Vitamin B12 Level 657 pg/mL (247-911) Procalcitonin < 0.10 ng/mL (0.00-0.10) Thyroid Stimulating Hormone (TSH) 7.165 uIU/mL (0.358-3.74) Treponema pallidum Antibody Nonreactive (Nonreactive) Urine Collection Type Unknown Urine Color Yellow Urine Clarity Cloudy Urine pH 6.0 Urine Specific [place] 1.025 Urine Protein Negative mg/dL (NEG-TRACE) Urine Glucose (UA) Negative mg/dL (NEG) Urine Ketones (Stick) Negative mg/dL (NEG) Urine Blood Negative (NEG) Urine Nitrite Negative (NEG) Urine Bilirubin Negative (NEG) Urine Urobilinogen Dipstick 1.0 mg/dL (0.2 mg/dL) Urine Leukocyte Esterase Negative (NEG) Urine RBC 0 /HPF (0-2) Urine WBC Occ /HPF (0-4) Urine Bacteria Few /HPF (0-FEW) Bedside Hemoglobin 14.3 g/dL (12-15) Bedside Hematocrit 42 % (36-40) Bedside Sodium 142 mmol/L (135-145) Bedside Potassium 3.9 mmol/L (3.5-5.0) Bedside Chloride 111 mmol/L (98-110) Bedside Total CO2 18 mmol/L (23-32) Bedside Blood Urea Nitrogen 18 mg/dL (8-26) Bedside Creatinine 1.5 mg/dL (0.5-1.4) Bedside Ionized Calcium (Rodney) 1.47 mmol/L (1.13-1.32) Bedside Troponin I 0.04 ng/ml (<0.08) Test 03/29/19 15:30 03/29/19 17:40 03/29/19 18:50 03/29/19 19:06 O2 Saturation 96 % (92-99) Arterial Blood pH 7.34 (7.35-7.45) Arterial Blood pH (Temp corrected) 7.32 Arterial Blood pCO2 at Patient Temp 33 mmHg (35-46) Arterial Blood pCO2 (Temp correct) 35 mmHg Arterial Blood pO2 at Patient Temp 92 mmHg (65-108) Arterial Blood pO2 (Temp corrected) 100 mmHg Arterial Blood HCO3 17 mmol/L (21-28) Arterial Blood Base Excess -8 mmol/L (-3-3) Oxyhemoglobin 94.9 % Methemoglobin 0.3 % (0.0-1.9) Carbon Monoxide, Quantitative 0.3 % (0.0-1.9) FiO2 40 Nasal Screen MRSA (PCR) Negative (Negative) Lactic Acid Level 2.2 mmol/L (0.4-2.0) Urine Opiates Screen Pos (NEG) Urine Methadone Screen Neg (NEG) Urine Barbiturates Neg (NEG) Urine Phencyclidine Screen Neg (NEG) Urine Amphetamine/Methamphetamine Neg (NEG) Urine Benzodiazepines Screen Neg (NEG) Urine Cocaine Screen Neg (NEG) Urine Cannabinoids Screen Neg (NEG) Urine Ethyl Alcohol Neg (NEG) Test 03/29/19 20:42 03/30/19 07:25 03/30/19 08:00 03/31/19 04:00 Ammonia 12 mcmol/L (11-34) Triglycerides Level 238 mg/dL (0-150) Cholesterol Level 148 mg/dL (0-200) LDL Cholesterol, Calculated 62 mg/dL (0-100) VLDL Cholesterol, Calculated 48 mg/dL (0-40) Non-HDL Cholesterol Calculated 110 mg/dL (0-129) HDL Cholesterol 38 mg/dL (40-60) Cholesterol/HDL Ratio 3.9 O2 Saturation 96 % (92-99) Arterial Blood pH 7.50 (7.35-7.45) Arterial Blood pCO2 at Patient Temp 27 mmHg (35-46) Arterial Blood pO2 at Patient Temp 85 mmHg (65-108) Arterial Blood HCO3 21 mmol/L (21-28) Arterial Blood Base Excess -1 mmol/L (-3-3) FiO2 40 White Blood Count 8.1 x10^3/uL (4.0-11.0) Red Blood Count 4.44 x10^6/uL (3.50-5.40) Hemoglobin 13.2 g/dL (12.0-15.5) Hematocrit 39.4 % (36.0-47.0) Mean Corpuscular Volume 89 fL (79-100) Mean Corpuscular Hemoglobin 30 pg (25-35) Mean Corpuscular Hemoglobin Concent 33 g/dL (31-37) Red Cell Distribution Width 14.7 % (11.5-14.5) Platelet Count 177 x10^3/uL (140-400) Neutrophils (%) (Auto) 50 % (31-73) Lymphocytes (%) (Auto) 39 % (24-48) Monocytes (%) (Auto) 10 % (0-9) Eosinophils (%) (Auto) 0 % (0-3) Basophils (%) (Auto) 1 % (0-3) Neutrophils # (Auto) 4.0 x10^3uL (1.8-7.7) Lymphocytes # (Auto) 3.2 x10^3/uL (1.0-4.8) Monocytes # (Auto) 0.8 x10^3/uL (0.0-1.1) Eosinophils # (Auto) 0.0 x10^3/uL (0.0-0.7) Basophils # (Auto) 0.1 x10^3/uL (0.0-0.2) Sodium Level 144 mmol/L (136-145) Potassium Level 3.5 mmol/L (3.5-5.1) Chloride Level 109 mmol/L (98-107) Carbon Dioxide Level 24 mmol/L (21-32) Anion Gap 11 (6-14) Blood Urea Nitrogen 12 mg/dL (7-20) Creatinine 1.0 mg/dL (0.6-1.0) Estimated GFR (Cockcroft-Gault) 66.7 Glucose Level 107 mg/dL (70-99) Calcium Level 9.7 mg/dL (8.5-10.1) Laboratory Tests Test 03/31/19 04:00 White Blood Count 8.1 x10^3/uL (4.0-11.0) Red Blood Count 4.44 x10^6/uL (3.50-5.40) Hemoglobin 13.2 g/dL (12.0-15.5) Hematocrit 39.4 % (36.0-47.0) Mean Corpuscular Volume 89 fL (79-100) Mean Corpuscular Hemoglobin 30 pg (25-35) Mean Corpuscular Hemoglobin Concent 33 g/dL (31-37) Red Cell Distribution Width 14.7 % (11.5-14.5) Platelet Count 177 x10^3/uL (140-400) Neutrophils (%) (Auto) 50 % (31-73) Lymphocytes (%) (Auto) 39 % (24-48) Monocytes (%) (Auto) 10 % (0-9) Eosinophils (%) (Auto) 0 % (0-3) Basophils (%) (Auto) 1 % (0-3) Neutrophils # (Auto) 4.0 x10^3uL (1.8-7.7) Lymphocytes # (Auto) 3.2 x10^3/uL (1.0-4.8) Monocytes # (Auto) 0.8 x10^3/uL (0.0-1.1) Eosinophils # (Auto) 0.0 x10^3/uL (0.0-0.7) Basophils # (Auto) 0.1 x10^3/uL (0.0-0.2) Sodium Level 144 mmol/L (136-145) Potassium Level 3.5 mmol/L (3.5-5.1) Chloride Level 109 mmol/L (98-107) Carbon Dioxide Level 24 mmol/L (21-32) Anion Gap 11 (6-14) Blood Urea Nitrogen 12 mg/dL (7-20) Creatinine 1.0 mg/dL (0.6-1.0) Estimated GFR (Cockcroft-Gault) 66.7 Glucose Level 107 mg/dL (70-99) Calcium Level 9.7 mg/dL (8.5-10.1) Brief Hospital Course Ms Fernandes is a 68 yo female hx of HTN, hypothyroidism, HLD, GERD, Afib on coumadin who was at [facility] in the steam room and was found unresponsive by the workers. per report she was alone and was in the steam room for 1 hr. EMS was called and patient had a pulse but with agonal respirations. initial temp was 103 but she was in the steam room. GCS was reported at 4 initially. EMS read EKG as STEMI. patient transported to ED for evaluation. patient was placed on NRB in ED and intubated upon arrival. Per family she was in her usual state prior to her sauna trip. no fever, seats, chest pain, sob. In the ED EKG read as LBBB. Cardiology immediately took patient to the laborer bituminous paving which showed Three-vessel moderate coronary artery disease in the larger segments of the patient's vessels and Diffuse small vessel distal disease. no s tents placed. Extubated on 03/30/19 without event. Feeling significantly better today, notes she has ARACELY on CPAP and feels she had heat stroke. She wishes to eat and had lee out. Has a little superficial abd discomfort CXR 1. Mild cardiomegaly. 2. No acute cardiopulmonary abnormality is detected. Echo - Septal motion suggestive of conduction defect. The left ventricular systolic function is mildly impaired. EF 40-45% She was known to likely have prior CHF, now confirmed, already on warfarin, ARB, now on metoprolol XL, will have cardiology f/u outpatient. Seen by ID, antibiotics d/c'd procalcitonin negative. Seen by pulm for vent management, was quickly extubated. Seen by cardiology as above. Acute Encephalopathy Acute Hypoxic Resp Failure due to AMS Suspected syncope and collapse Hyperthermia Chronic LBBB Chronic anticoagulation HTN NANETTE HTN HLD Hypothyroidism, TSH 7.1 mild CPK elevation Greater than 30 minutes spent on d/c Discharge Information Condition at Discharge: Improved Follow Up: Weeks (2) Disposition/Orders: D/C to Home Scheduled Atorvastatin Calcium (Atorvastatin Calcium) 40 Mg Tablet, 1 TAB PO DAILY for HLD, #30 Ref 5 (Reported) Entered as Reported by: EVE JOHNSON on 03/29/192120 Last Action: Continued on 03/30/191555 by LUZ ELENA CARDOSO MD Famotidine (Famotidine) 20 Mg Tablet, 10 MG PO DAILY for GERD, (Reported) Entered as Reported by: EVE JOHNSON on 03/29/192120 Last Action: Continued on 03/30/191555 by LUZ ELENA CARDOSO MD Fluticasone Propionate (Flonase Allergy Relief) 9.9 Ml [place].susp, 2 SPRAYS NS DAILY for allergies, (Reported) Entered as Reported by: EVE JOHNSON on 03/29/192120 Last Action: New Order on 03/29/192120 by EVE JOHNSON Isosorbide Mononitrate (Isosorbide Mononitrate Er) 60 Mg Tab.er.24h, 2 TAB PO DAILY for Angina, #30 Ref 5 (Reported) Entered as Reported by: EVE JOHNSON on 03/29/192120 Last Action: Converted on 03/30/191555 by LUZ ELENA CARDOSO MD Metoprolol Succinate (Metoprolol Succinate ( Xl )) 25 Mg Tab.er.24h, 25 MG PO DAILY for CAD for 30 Days, #30 Ref 2 Prescribed by: LUZ ELENA CARDOSO MD on 03/31/19 1428 Multivitamin (Multivitamins) 1 Each Tablet, 1 TAB PO DAILY for multivitamin, #90 Ref 3 (Reported) Entered as Reported by: EVE JOHNSON on 03/29/192120 Last Action: New Order on 03/29/192120 by EVE JOHNSON Warfarin Sodium (Warfarin Sodium) 5 Mg Tablet, 5 MG PO DAILY16, (Reported) Entered as Reported by: ALBERTO MONTOYA on 10/26/13 1407 Last Action: Edited on 03/31/19 1353 by [facility] Miscellaneous Medications Amlodipine Besylate (Amlodipine Besylate) 10 Mg Tablet, 10 MG PO, (Reported) Entered as Reported by: ALBERTO MONTOYA on 10/26/131409 Last Action: Continued on 03/30/191555 by LUZ ELENA CARDOSO MD Aspirin (Aspir-Low) 81 Mg Tablet.dr, 81 MG PO, (Reported) Entered as Reported by: ALBERTO MONTOYA on 10/26/131409 Last Action: Continued on 03/30/191555 by LUZ ELENA CARDOSO MD Docusate Sodium (Stool Softener) 100 Mg Capsule, 100 MG PO, (Reported) Entered as Reported by: ALBERTO MONTOYA on 10/26/131409 Last Action: Continued on 03/30/191555 by LUZ ELENA CARDOSO MD Donepezil Hcl (Donepezil Hcl) 5 Mg Tablet, 5 MG PO, (Reported) Entered as Reported by: ALBERTO MONTOYA on 10/26/131409 Last Action: Reviewed on 03/29/192120 by EVE JOHNSON Levothyroxine Sodium (Levothyroxine Sodium) 150 Mcg Tablet, 150 MCG PO, (Reported) Entered as Reported by: ALBERTO MONTOYA on 10/26/131409 Last Action: Converted on 03/30/191555 by LUZ ELENA CARDOSO MD Losartan Potassium (Losartan Potassium) 100 Mg Tablet, 100 MG PO, (Reported) Entered as Reported by: ALBERTO MONTOYA on 10/26/13 140 Last Action: Reviewed on 03/29/192120 by EVE JOHNSON Discontinued Medications Enoxaparin Sodium (Enoxaparin Sodium) 80 Mg/0.8 Ml Disp.syrin, 90 MG SQ, (Reported) Entered as Reported by: ALBERTO MONTOYA on 10/26/13 140 Last Action: Discontinued on 03/29/192120 by EVE JOHNSON Hydrocodone Bit/Acetaminophen (Hydrocodone-Apap 7.5-325 ) 1 Each Tablet, 1 EACH PO, (Reported) Entered as Reported by: ALBERTO MONTOYA on 10/26/131409 Last Action: Discontinued on 03/29/192120 by EVE JOHNSON Metoprolol Succinate (Metoprolol Succinate ( Xl )) 25 Mg Tab.er.24h, 25 MG PO, (Reported) Entered as Reported by: ALBERTO MONTOYA on 10/26/13 141 Last Action: Discontinued on 03/29/192120 by EVE JOHNSON Omeprazole (Omeprazole) 20 Mg Capsule.dr, 20 MG PO, (Reported) Entered as Reported by: ALBERTO MONTOYA on 10/26/13 141 Last Action: Discontinued on 03/29/192120 by EVE JOHNSON Simvastatin (Simvastatin) 20 Mg Tablet, 20 MG PO, (Reported) Entered as Reported by: ALBERTO MONTOYA on 10/26/13 141 Last Action: Discontinued on 03/29/192120 by EVE JOHNSON Sulfacetamide/Prednisolone Sp (Sulf-Pred 10-0.23% Eye Drops) 5 Ml Drops, 5 ML OP, (Reported) Entered as Reported by: ALBERTO MONTOYA on 10/26/13 141 Last Action: Discontinued on 03/29/192120 by EVE JOHNSON Warfarin Sodium (Warfarin Sodium) 2.5 Mg Tablet, 2.5 MG PO, (Reported) Discontinued Reason: DIAZ Entered as Reported by: ALBERTO MONTOYA on 10/26/13 1407 Last Action: Discontinued on 03/31/19 1353 by MONICA FOX CHRISTOPHER S MD Mar 31, 2019 14:34
--- NOTE | 2019-03-31 14:53 | SNU/HH DC ---
DISCHARGE WITH HOME HEALTH DISCHARGE INFORMATION: Discharge Date: Mar 31, 2019 Final Diagnosis: Problems Medical Problems: (1) Altered mental status Status: Acute (2) Hyperthermia Status: Acute (3) Respiratory failure Status: Acute Condition on Discharge: Stable CODE STATUS: Code Status: Full HOME HEALTH: Face to Face: I certify this patient is under my care and that I, or a nurse practitioner or physician's contract administrative assistant working with me, had a face to face encounter that meets the physician face to face encounter requirements with this patient on 03/31/19. Medical Complications: CHF [facility] For: Assess & Educate Safety, Medication Management RN For Eval/Treatment: Yes Pt Meets Homebound Status: Fatigue w/ amb., Limited distance walking POST DISCHARGE ORDERS: Activity Instructions for Disc: No restrictions Weight Bearing Status after Di: No restrictions DIET AFTER DISCHARGE: Cardiac CHECKS AFTER DISCHARGE: Checks after discharge: Check blood press - daily, Weigh Yourself Daily FOLLOW-UP: Follow up with: Cardiology - Dr. Patel within 30 days TREATMENT/EQUIPMENT ORDERS: Adaptive Equipment Issued: None CERTIFICATION STATEMENT: Certification Statement: Certification Statement: Based on the above finding, I certify that this patient is confined to the home and needs intermittent fdc care, physical therapy and/or speech therapy, or continues to need occupational therapy.~ This patient is under my care, and I have initiated the establishment of the plan of care.~ This patient will be followed by myself or a community physician who will periodically review the plan of care. Home Meds Active Scripts Metoprolol Succinate (METOPROLOL SUCCINATE ( XL )) 25 Mg Tab.er.24h, 25 MG PO DAILY for CAD for 30 Days, #30 TAB.SR 2 Refills Prov:LUZ ELENA CARDOSO MD 03/31/19 Reported Medications Atorvastatin Calcium (ATORVASTATIN CALCIUM) 40 Mg Tablet, 1 TAB PO DAILY for HLD, #30 TAB 5 Refills 03/29/19 Isosorbide Mononitrate (ISOSORBIDE MONONITRATE ER) 60 Mg Tab.er.24h, 2 TAB PO DAILY for Angina, #30 TAB 5 Refills 03/29/19 Fluticasone Propionate (Flonase Allergy Relief) 9.9 Ml [place].susp, 2 SPRAYS NS DAILY for allergies, BOTTLE 03/29/19 Famotidine (FAMOTIDINE) 20 Mg Tablet, 10 MG PO DAILY for GERD, TAB 03/29/19 Multivitamin (MULTIVITAMINS) 1 Each Tablet, 1 TAB PO DAILY for multivitamin, #90 TAB 3 Refills 03/29/19 Docusate Sodium (STOOL SOFTENER) 100 Mg Capsule, 100 MG PO 10/26/13 Levothyroxine Sodium (LEVOTHYROXINE SODIUM) 150 Mcg Tablet, 150 MCG PO 10/26/13 Donepezil Hcl (DONEPEZIL HCL) 5 Mg Tablet, 5 MG PO 10/26/13 Aspirin (ASPIR-LOW) 81 Mg Tablet.dr, 81 MG PO 10/26/13 Amlodipine Besylate (AMLODIPINE BESYLATE) 10 Mg Tablet, 10 MG PO 10/26/13 Warfarin Sodium (WARFARIN SODIUM) 5 Mg Tablet, 5 MG PO DAILY16 10/26/13 Losartan Potassium (LOSARTAN POTASSIUM) 100 Mg Tablet, 100 MG PO 10/26/13 Discontinued Reported Medications Warfarin Sodium (WARFARIN SODIUM) 2.5 Mg Tablet, 2.5 MG PO 10/26/13 Sulfacetamide/Prednisolone Sp (SULF-PRED 10-0.23% EYE DROPS) 5 Ml Drops, 5 ML OP 10/26/13 Simvastatin (SIMVASTATIN) 20 Mg Tablet, 20 MG PO 10/26/13 Omeprazole (OMEPRAZOLE) 20 Mg Capsule.dr, 20 MG PO 10/26/13 Metoprolol Succinate (METOPROLOL SUCCINATE ( XL )) 25 Mg Tab.er.24h, 25 MG PO 10/26/13 Hydrocodone Bit/Acetaminophen (HYDROCODONE-APAP 7.5-325 ) 1 Each Tablet, 1 EACH PO 10/26/13 Enoxaparin Sodium (ENOXAPARIN SODIUM) 80 Mg/0.8 Ml Disp.syrin, 90 MG SQ 10/26/13 LUZ ELENA CARDOSO MD Mar 31, 2019 14:53
[2019-03-31] MEDS ORDERED: WARFARIN 5 MG TABLET. PO SCH (16:00)
== END 2019-03-31 15:45 | disposition home or self-care (01) | DRG 208 ==
LOC: ER 14:30 → 1 WEST ICU 15:30
PROVIDERS: ADMIT Internal Medicine; ATTEND Internal Medicine
PROC: 4A023N7 Measurement of Cardiac Sampling and Pressure, Left Heart, Percutaneous Approach (ICD-10-PCS; principal; 2019-03-29)
PROC: 5A1935Z Respiratory Ventilation, Less than 24 Consecutive Hours (ICD-10-PCS; 2019-03-29)
PROC: B2111ZZ Fluoroscopy of Multiple Coronary Arteries using Low Osmolar Contrast (ICD-10-PCS; 2019-03-29)
PROC: 0BH17EZ Insertion of Endotracheal Airway into Trachea, Via Natural or Artificial Opening (ICD-10-PCS; 2019-03-29)
DX: J96.01 Acute respiratory failure with hypoxia (principal); G93.41 Metabolic encephalopathy; T67.0XXA Heatstroke and sunstroke, initial encounter; N17.9 Acute kidney failure, unspecified; I50.22 Chronic systolic (congestive) heart failure; I44.7 Left bundle-branch block, unspecified; D72.820 Lymphocytosis (symptomatic); E03.9 Hypothyroidism, unspecified; E78.00 Pure hypercholesterolemia, unspecified; E78.5 Hyperlipidemia, unspecified; F03.90 Unspecified dementia, unspecified severity, without behavioral disturbance, psychotic disturbance, mood disturbance, and anxiety; H40.9 Unspecified glaucoma; I11.0 Hypertensive heart disease with heart failure; I25.10 Atherosclerotic heart disease of native coronary artery without angina pectoris; I48.91 Unspecified atrial fibrillation; K21.9 Gastro-esophageal reflux disease without esophagitis; I73.9 Peripheral vascular disease, unspecified; R50.9 Fever, unspecified; G47.33 Obstructive sleep apnea (adult) (pediatric); X30.XXXA Exposure to excessive natural heat, initial encounter; Z79.01 Long term (current) use of anticoagulants; Z86.718 Personal history of other venous thrombosis and embolism; Z86.73 Personal history of transient ischemic attack (TIA), and cerebral infarction without residual deficits; Z98.51 Tubal ligation status; Z87.891 Personal history of nicotine dependence; G89.29 Other chronic pain; M19.90 Unspecified osteoarthritis, unspecified site; I25.2 Old myocardial infarction
CPT/HCPCS: 31500; 36415; 36600; 70450; 71045; 72125; 80047; 80048; 80053; 80061; 80307; 81001; 82140; 82550; 82607; 82805; 83605; 83690; 83735; 84145; 84443; 84484; 85025; 85610; 85730; 86592; 87040; 87641; 93005; 93306; 93458; 94002; 94003; 96365; C1769; C1892; J1644; J2543; J2704; J3490; J7030; Q9967; 92610; 97116; 97535; 99291-25

== ENCOUNTER → 2019-10-23 | Outpatient (CLI) | payer MEDICARE ==
[2019-03-31 13:10] VITALS: BP 123/69
[~2019-10-23] MED LIST changes: +ATOR40TA59 PO; +FAMO20TA5 PO; +FLUT9.9S NS; +ISOS60TA2 PO; +MULT1TAB52 PO; -OMEP20CA10 PO; +OMEP20CA16 PO; +SIMV20TA18 PO; -SIMV20TA3 PO
--- NOTE | 2019-10-23 09:25 | RAD ---
DATE: 10/23/2019 EXAM: MAMMO PELON SCREENING BILATERAL HISTORY: Routine screening COMPARISON: 02/23/2013, 05/23/2014, 07/23/2015, and 10/12/2018 This study was interpreted with the benefit of Computerized Aided Detection (CAD). Breast Density: HETERO The breast parenchyma is heterogenously dense, which could reduce sensitivity of mammography. Breast parenchyma level C. FINDINGS: No suspicious calcification, mass, or distortion in the interval. IMPRESSION: Stable BI-RADS CATEGORY: 1 NEGATIVE RECOMMENDED FOLLOW-UP: 12M 12 MONTH FOLLOW-UP PQRS compliance statement: Patient information was entered into a reminder system with a target due date for the next mammogram. Mammography is a sensitive method for finding small breast cancers, but it does not detect them all and is not a substitute for careful clinical examination. A negative mammogram does not negate a clinically suspicious finding and should not result in delay in biopsying a clinically suspicious abnormality. "Our facility is accredited by the [employer] Mammography Program."
--- NOTE | 2019-10-23 09:41 | RAD ---
2 view cervical spine series Clinical indications: Right arm numbness with tingling in fingers for 2 months. FINDINGS: No acute fracture or discitis or lytic process or prevertebral soft tissue swelling is evident. There is a grade 1 anterolisthesis of C4-5. Degenerative facet arthropathy is evident. There is degenerative disc space narrowing at C2-3 and C3-4 C5-6 and C6-7. There is degenerative endplate spurring at C4-5 and C5-6 and C6-7. Calcified atheromatous disease of the carotid arteries is seen bilaterally. IMPRESSION: Degenerative cervical spondylosis. Grade 1 anterolisthesis of C4-5. Bilateral calcified atheromatous carotid disease. Electronically signed by: Jim Drew MD (10/23/2019 9:38 AM) [place] [id number]
== END | disposition home or self-care (01) ==
LOC: MAMMO 07:48
PROVIDERS: ATTEND Pediatrics
DX: Z12.31 Encounter for screening mammogram for malignant neoplasm of breast (principal); M43.12 Spondylolisthesis, cervical region; M48.02 Spinal stenosis, cervical region; M12.88 Other specific arthropathies, not elsewhere classified, other specified site; M47.812 Spondylosis without myelopathy or radiculopathy, cervical region
CPT/HCPCS: 72040; 77063; 77067

== ENCOUNTER → 2020-10-23 | Outpatient (CLI) | payer MEDICARE ==
[2019-03-31 13:10] VITALS: BP 123/69
[~2020-10-23] MED LIST changes: +AMLO-187 PO; -AMLO10TA8 PO; -DOCU-150 PO; +DOCU-158 PO; -ISOS60TA2 PO; +ISOS60TA55 PO; +MULT-445 PO; -MULT1TAB52 PO
--- NOTE | 2020-10-25 12:38 | RAD ---
DATE: 10/23/2020 9:42 AM EXAM: MAMMO PELON SCREENING BILATERAL HISTORY: Screening COMPARISON: 10/23/2019 Bilateral CC and MLO views of the breasts were performed. Bilateral breast tomosynthesis was performed in CC and MLO projections. This study was interpreted with the benefit of Computerized Aided Detection (CAD). FINDINGS: Breast Density: HETERO The breast parenchyma Is heterogeneously dense, which could reduce sensitivity of mammography. Breast parenchyma level C No suspicious masses, microcalcifications or architectural distortion is present to suggest malignancy in either breast. The visualized axillae are unremarkable. IMPRESSION: No mammographic evidence of malignancy. BI-RADS CATEGORY: 1 NEGATIVE RECOMMENDED FOLLOW-UP: 12M 12 MONTH FOLLOW-UP Annual screening mammography is recommended, unless clinically indicated sooner based on symptoms or change in physical exam. PQRS compliance statement: Patient information was entered into a reminder system with a target due date for the next mammogram. Mammography is a sensitive method for finding small breast cancers, but it does not detect them all and is not a substitute for careful clinical examination. A negative mammogram does not negate a clinically suspicious finding and should not result in delay in biopsying a clinically suspicious abnormality. "Our facility is accredited by the [employer] Mammography Program."
== END ==
LOC: MAMMO 11:01
PROVIDERS: ATTEND Pediatrics
DX: Z12.31 Encounter for screening mammogram for malignant neoplasm of breast (principal)
CPT/HCPCS: 77063; 77067

== ENCOUNTER → 2021-02-21 | Outpatient (CLI) | payer MEDICARE ==
[2019-03-31 13:10] VITALS: BP 123/69
[~2021-02-21] MED LIST changes: +DOCU-150 PO; -DOCU-158 PO
--- NOTE | 2021-02-21 12:14 | RAD ---
EXAM: Dual modality PET-CT Scan DATE: 02/21/2021 RADIOPHARMACEUTICAL: 14.52 mCi F-18 fluorodeoxyglucose (FDG) IV. CLINICAL HISTORY: Pulmonary nodule. COMPARISON: There are no comparison images available. TECHNIQUE: Approximately 45 minutes after tracer administration, routine, attenuation-corrected Posit conchis Emission Tomography (PET) images were obtained from the level of the base of the skull through th e level of the mid thighs. Tomographic reconstructions are reviewed in coronal, transaxial and sagitt al planes. Non-contrast CT imaging was performed for attenuation correction and localization purpose s only. These images do not constitute a diagnostic-quality CT examination and were not used to diag nose disease independently of the PET images. The blood glucose level was 116 mg/dL at the time of FDG administration. *One or more of the following individualized dose reduction techniques were utilized for this examina tion: 1. Automated exposure control. 2. Adjustment of the mA and/or kV according to patient size. 3. Use of iterative reconstruction technique. FINDINGS: There is mild radiotracer activity within maximum SUV of 1.7 associated with a 9 mm nodule abutting the pleura of the lateral right middle lobe. There is increased radiotracer activity within maximum SUV of 3.2 associated with focal cortical thickening of a right axillary lymph node measuring 2.5 cm in long axis. There is less intense greater tracer activity within SUV of 1.6 associated with an adjacent right axillary lymph node measuring less than 1 cm in size. There is physiologic activit y within the bowel and renal collecting system. The CT portion of the exam demonstrates a 9 mm nodule abutting the pleura of the lateral right middle lobe. There is posterior dependent and basilar atelectasis. Evaluation for small nodules is limited due to respiratory motion on the CT portion of the exam. There is a calcified granuloma within the ri ght lower lobe. There is pulmonary emphysema. There is no pneumothorax or pleural effusion. There is mild cardiomegaly. There is aortic and coronary artery atherosclerosis. No pathologically en larged mediastinal or hilar lymph node is seen. The visualized portions the brain are unremarkable. T here is no neck lymphadenopathy. There is no hepatic lesion. The gallbladder, pancreas, spleen and ri ght adrenal gland are unremarkable. There is a 5 mm lymph node adjacent to the left adrenal gland or a benign left adrenal adenoma. There is a simple left renal cyst measuring 3.3 cm. There is no appendicitis. There is no bowel obstruction. There is distal colonic diverticulosis. The bladder, uterus and adnexal regions are unremarkable. There is slight diastasis of the ventral abdomi nal wall musculature. There are degenerative changes throughout the spine. There is grade 1 anterolis thesis of L5 on S1. There are few benign bone islands. IMPRESSION: 1. Minimal radiotracer activity with a maximum SUV of 1.7 associated with a 9 mm nodule within the la teral right middle lobe. This nodule may be too small to characterize with PET. There is no prior andreina dy to assess for interval change. Follow-up in 3 months can be performed to confirm stability. 2. Mild increased radiotracer activity within SUV of 3.2 within a right axillary lymph node with foca lly thickened cortex. This is nonspecific and may be reactive in etiology. Correlate for underlying e tiologies such as recent upper extremity vaccination. There is an adjacent smaller lymph node with mi nimal tracer activity, also possibly reactive in etiology. Attention at the time of CT follow-up or l eft axillary sonography can be performed to confirm benignity. 3. Please refer to the above report for additional findings regarding the non-PET portion of the exam . Electronically signed by: Kiah Vasquez MD (02/21/2021 12:12 PM) [id number]
== END ==
LOC: PETSC 09:08
PROVIDERS: ATTEND Internal Medicine Critical Care Medicine
DX: R91.8 Other nonspecific abnormal finding of lung field (principal); J43.9 Emphysema, unspecified; I70.0 Atherosclerosis of aorta; I25.10 Atherosclerotic heart disease of native coronary artery without angina pectoris; I51.7 Cardiomegaly
CPT/HCPCS: 78815; A9552

== ENCOUNTER → 2021-06-04 | Outpatient (CLI) | payer MEDICARE ==
[2019-03-31 13:10] VITALS: BP 123/69
[~2021-06-04] MED LIST changes: -DOCU-150 PO; +DOCU-158 PO
--- NOTE | 2021-06-04 10:13 | RAD ---
PQRS Compliance Statement: One or more of the following individualized dose reduction techniques were utilized for this examinat ion: 1. Automated exposure control 2. Adjustment of the mA and/or kV according to patient size 3. Use of iterative reconstruction technique CT THORAX WO 06/04/2021 9:01 AM Indication: Lung nodule COMPARISON: PET/CT 02/21/2021 TECHNIQUE: Multiple axial CT images of the chest were obtained without intravenous contrast. Coronal and sagittal reformats are provided. FINDINGS: There is a 11 mm x 5 mm subpleural solid noncalcified pulmonary nodule in the lateral right middle lo be (series 3, image 189). There is a 2 mm solid noncalcified pulmonary nodule in the lateral left upp er lobe (series 3, image 122). Calcified granuloma identified in the posterior basal segment right lo wer lobe measuring 5 mm. 2 mm subpleural nodule identified along the right major fissure laterally (s eries 3, image 171). There is a 3 mm solid noncalcified pulmonary nodule in the right upper lobe (ser ies 3, image 135). No pleural effusions, pulmonary vascular congestion or pneumothorax. Mild centrilo bular pulmonary emphysema. Thyroid gland is normal in appearance. No pathologically enlarged thoracic lymph nodes. Heart size within normal limits. Three-vessel coronary vascular opacifications are pres ent. Thoracic aorta is normal in course and caliber. Lateral interpolar left renal cyst measures 1.9 cm. 5 mm nodular thickening of the medial limb left adrenal gland does not demonstrate significant FD G activity on prior PET/CT. IMPRESSION: Stable 11 x 5 mm solid noncalcified pulmonary nodule along the lateral right middle lobe, similar in appearance prior examination given differences in technique. 3-6 month follow-up chest CT is recommen ded to assess stability. Additional sub-5 mm solid noncalcified pulmonary nodules are detailed above. Attention on follow-up exams is recommended. 5 mm nodular thickening of the medial limb left adrenal gland remains indeterminate. This finding is not FDG avid on prior PET/CT. Attention on follow-up exams is recommended. Electronically signed by: Delilah Hernandez MD (06/04/2021 10:11 AM) [id number]
== END ==
LOC: CT 10:21
PROVIDERS: ATTEND Internal Medicine Critical Care Medicine
DX: R91.1 Solitary pulmonary nodule (principal); J43.2 Centrilobular emphysema; N28.1 Cyst of kidney, acquired
CPT/HCPCS: 71250

== ENCOUNTER → 2021-12-22 | Outpatient (CLI) | payer MEDICARE ==
[2019-03-31 13:10] VITALS: BP 123/69
[~2021-12-22] MED LIST changes: +CYCL10TA19 PO; -CYCL10TA2 PO
--- NOTE | 2021-12-22 15:40 | RAD ---
Bilateral digital screening 2-D and 3-D (tomosynthesis) mammogram: Reason for examination: Routine screening. Comparison is made to previous mammograms from 07/31/2015, 10/12/2018, 10/23/2019, 10/23/2020. Bilateral mammograms in CC and oblique projections were obtained with 2-D imaging and 3-D tomosynthes is imaging and reviewed on the workstation. Interpretation was made with the benefit of CAD. Findings: Breast density: Category C. The breasts are heterogeneously dense, which may obscure small masses. There are no suspicious masses, malignant appearing calcifications or architectural distortion. Impression: No evidence of malignancy. ASSESSMENT: BI-RADS 1. Recommendations: Routine screening mammograms. This patient's information has been entered into a reminder system for the patient to be notified wit h the results of her examination and a target date for the next mammogram. Your patient's mammogram demonstrates that she has dense breast tissue (breast density category C or D), which could hide abnormalities, and if she has other risk factors for breast cancer that have bee n identified, she might benefit from supplemental screening tests that may be suggested by you as her ordering physician. Dense breast tissue, in and of itself, is a relatively common condition. Therefo re, this information is not provided to cause undue concern, but rather to raise your awareness and t o promote discussion with your patient regarding the presence of other risk factors, in addition to d ense breast tissue. Electronically signed by: Melania Meyer MD (12/22/2021 3:37 PM) [id number]
== END ==
LOC: MAMMO 12:53
PROVIDERS: ATTEND Pediatrics
DX: Z12.31 Encounter for screening mammogram for malignant neoplasm of breast (principal)
CPT/HCPCS: 77063; 77067

== ENCOUNTER → 2021-12-22 | Outpatient (CLI) | payer MEDICARE ==
[2019-03-31 13:10] VITALS: BP 123/69
--- NOTE | 2021-12-22 16:21 | RAD ---
CT THORAX WO INDICATION: LUNG NODULE . COMPARISON STUDY: PET/CT 02/21/2021. TECHNIQUE: Unenhanced axial images were obtained through the lungs and upper abdomen. Coronal and sa gittal multiplanar reconstructions were also obtained. PQRS compliance statement: One or more of the following individualized dose reduction techniques were utilized for this examinat ion: 1. Automated exposure control 2. Adjustment of the mA and/or kV according to patient size 3. Use of iterative reconstruction technique FINDINGS: Lungs and Airways: Stable elongate middle lobe subpleural nodule measuring 11 mm. Bibasilar dependent and subsegmental atelectasis. Calcified pulmonary granulomas. Centrilobular emphysema. Normal centra l airways. Pleura: The pleural spaces are normal. Heart and Mediastinum: The visualized thyroid gland is normal in size and attenuation. No axillary or supraclavicular lymphadenopathy. No mediastinal, hilar or retrocrural lymphadenopathy. Normal cardia c size. No pericardial effusion. Coronary artery atherosclerotic disease. Normal caliber thoracic aor ta. Abdomen: Stable left renal cyst. Stable mild left adrenal thickening. Bones and Soft Tissues: Degenerative changes of the spine. IMPRESSION: Middle lobe 11 mm subpleural nodule remains stable. Consider additional 12 month follow-up CT to esta blish long-term stability. Electronically signed by: Rolando Hedrick MD (12/22/2021 4:19 PM) [id number]
== END ==
LOC: CT 12:00
PROVIDERS: ATTEND Internal Medicine Critical Care Medicine
DX: R91.1 Solitary pulmonary nodule (principal); I25.10 Atherosclerotic heart disease of native coronary artery without angina pectoris; J43.2 Centrilobular emphysema; J84.10 Pulmonary fibrosis, unspecified; N28.1 Cyst of kidney, acquired; E27.8 Other specified disorders of adrenal gland; M47.819 Spondylosis without myelopathy or radiculopathy, site unspecified
CPT/HCPCS: 71250